=== PATIENT | female | born 1955 | race Caucasian/White ===

== ENCOUNTER → 2016-07-21 | Outpatient (CLI) | payer OTHER ==
[~2016-07-21] MED LIST: AMPI250C9 PO; FOSA70TA PO; HYDR-3533 PO; MACR100C2 PO; METO50TA PO; MEVA40TA PO; MULTTAB26; SYNT88TA PO
[2016-07-21 16:00] LABS: BACTERIA, URINE RARE /hpf; BLOOD, URINE NEG (NEG); COMMENT (UR) CULTURE INDICATED; CULTURE IF INDICATED CULTURE INDICATED; GLUCOSE,URINE NEG (NEG); KETONE, URINE NEG (NEG); MUCUS URINE FEW /lpf (OCC); NITRITE,URINE NEG (NEG); PH, URINE 5.5 (5.0-8.5); URINE COLOR YELLOW (YELLW/STRAW)
== END ==
LOC: PLAB 13:48
PROVIDERS: ATTEND Urology
DX: N39.0 Urinary tract infection, site not specified (principal); B95.2 Enterococcus as the cause of diseases classified elsewhere
CPT/HCPCS: 81001; 87077; 87086; 87186

== ENCOUNTER → 2016-08-18 | Outpatient (CLI) | payer OTHER | LOC: PLAB 08:58 | DX: N39.0 Urinary tract infection, site not specified (principal); B95.2 Enterococcus as the cause of diseases classified elsewhere | CPT/HCPCS: 87077; 87086; 87186 ==

== ENCOUNTER → 2016-09-04 | Outpatient (CLI) | payer OTHER | LOC: PLAB 11:02 | PROVIDERS: ATTEND Urology | DX: N39.0 Urinary tract infection, site not specified (principal); B95.2 Enterococcus as the cause of diseases classified elsewhere; B96.89 Other specified bacterial agents as the cause of diseases classified elsewhere | CPT/HCPCS: 87077; 87086; 87186 ==

== ENCOUNTER 2016-09-18 22:10 | Emergency (ER) | payer OTHER ==
[~2016-09-18] VITALS: Ht 152.4 cm; Wt 50.5 kg
[2016-09-18 22:27] VITALS: BP 143/88; PULSE 99; RESP 18; TEMP 97.5; O2SAT 98
[2016-09-18] MEDS ORDERED: LOVA40TA PO (22:46)
[2016-09-18 22:55] VITALS: BP 131/64; PULSE 90; RESP 16; O2SAT 98
[2016-09-18] MEDS ORDERED: SODIUM CHLOR 0.9% 1000 ML INJ 1,000 ML IV ONE (23:02)
--- NOTE | 2016-09-18 23:10 | PD ---
HPI Chief Complaint: Flank/Kidney Pain Time Seen by Provider: 22:51 Travel History International Travel<30 days: No Contact w/Intl Traveler<30days: No Traveled to known affect area: No History of Present Illness HPI This 60-year-old female said she had a sudden onset of left flank pain that around 7:30 tonight. She has had attacks like this in the past. She had an attack in February. At that time she had a CT scan which was thought to show an 8 mm stone. Plans were made to remove the stone and was found that this was not actually a stone but a calcification. 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 She has had recurrent pain. She has a history of severe diverticulitis. She says she gets periodic attacks like this which are extremely painful. There has been some consideration given to removing the kidney. In February she had a renal scan which showed that the left kidney was a poorly functioning atrophic kidney. She took 2 Lortab at home without any relief of pain. She says she had vomiting. She has recurrent attacks like this. He was originally thought these were due to kidney stone but she had surgery and that was no stone present. She apparently has calcification around the ureter related to previous fistula. It has been suggested that her bouts of pain could also be related to scar tissue. PFSH Past Medical History Anemia: Yes Arthritis: Yes (degenerative arthritis) Asthma: No Depression: No Heart Rhythm Problems: Yes (tachycardia) Cancer: No High Cholesterol: Yes Chest Pain: Yes Congestive Heart Failure: No COPD: Yes Cerebrovascular Accident: No Diabetes: No Diminished Hearing: No Endocrine: Yes Gastrointestinal Disorders: Yes (diverticulitis and a fistula hx of gastric ulcers, 2 X COLON RESECTIONS) GERD: Yes Genitourinary: Yes (hx of uti and kidney stones) Headaches: Yes Hepatitis: No Hiatal Hernia: No Hypertension: Yes Immune Disorder: No Kidney Stones: Yes Medical other: Yes (hx of menegitis with septacemia x2) Musculoskeletal: Yes (arthritis in the neck and lower back, 5 X RECONSTRUCTIVE SURGERIES ON R ARM) Neurologic: Yes (BACTERIA MENINGITIS (1986)) Respiratory: Yes Immunizations Current: Yes Renal Failure: Yes Thyroid Disease: Yes (hx of total thyroidectomy) Ulcer: Yes Influenza Vaccination: Yes ?: Not Menopausal: Yes : 0 Para: 0 Past Surgical History Abdominal Surgery: Yes (colectomy/ILEOSTOMY- REVERSAL ON 02/19/2014) AICD: No Body Medical Devices: lower lumbar right knee Cardiac Surgery: Yes (cathertization 08/25) Ear Surgery: No Endocrine Surgery: Yes (thyroidectomy) Eye Surgery: No Genitourinary Surgery: Yes (several surgeries for left ureter ureteral stents place and removed) Gynecologic Surgery: Yes (ovary removal and hysterectomy) Hysterectomy: Yes Insulin Pump: No Joint Replacement: Yes (RTKR 2002, [facility] [place]/SCREWS) Neurologic Surgery: Yes (meningitis resulted in five surgeries to right arm) Oral Surgery: Yes (tonsillectomy) Thoracic Surgery: No Tonsillectomy: Yes (1996) Other Surgery: Yes Social History Alcohol Use: No Tobacco Use: No Substance Use: No Allergies-Medications (Allergen,Severity, Reaction): Coded Allergies: Cipro (Verified Allergy, Severe, hives, 05/27/16) Compazine (Verified Allergy, Severe, DYSTONIA, 05/27/16) Haldol (Verified Allergy, Severe, THROAT SWELLING, 05/27/16) Vancomycin (Verified Allergy, Severe, HIVES, 05/27/16) PT STATES SHE HAD REDNESS AND ITCHING AFTER ONE DOSE. WAS GIVEN BENADRYL IV Colace (Verified Allergy, Mild, HEADACHE, 05/27/16) Protonix (Verified Adverse Reaction, Severe, Headache, 05/27/16) Tramadol (Verified Adverse Reaction, Severe, GI DISTRESS, 05/27/16) Reported Meds & Prescriptions Reported Meds & Active Scripts Active Bactrim DS (Sulfamethoxazole-Trimethoprim) 800-160 Mg Tab 1 Tab PO BID Zofran Odt (Ondansetron Odt) 4 Mg Tab 4 Mg SL Q6HR PRN Percocet (Oxycodone-Acetaminophen) 10-325 mg Tab 1 Tab PO Q4H PRN Lortab (Hydrocodone-Acetaminophen) 5-325 Mg Tab 1-2 Tab PO Q6H PRN Reported Lovastatin 40 Mg Tab 40 Mg PO DAILY Metoprolol Tartrate 50 Mg Tab 50 Mg PO BID Synthroid (Levothyroxine Sodium) 88 Mcg Tab 88 Mcg PO DAILY Review of Systems General / Constitutional: Positive: Weight Loss (patient claims weight loss of greater than 100 pounds over the last 2 years), No: Fever, Chills Eyes: No: Diploplia, Blurred Vision HENT: No: Headaches, Vertigo Cardiovascular: No: Chest Pain or Discomfort, Palpitations Respiratory: No: Cough, Shortness of Breath Gastrointestinal: Positive: Nausea, Vomiting Genitourinary: Positive: Flank Pain, No: Urgency, Frequency Musculoskeletal: No: Myalgias, Arthralgias Skin: No Rash, No Itching Neurologic: No: Weakness, Dizziness Psychiatric: No: Anxiety, Depression Endocrine: No: Heat Intolerance, Cold Intolerance Hematologic/Lymphatic: No: Easy Bruising Physical Exam Narrative GENERAL: Well-developed female. She appears uncomfortable with pain SKIN: Focused skin assessment warm/dry. HEAD: Atraumatic. Normocephalic. EYES: Pupils equal and round. No scleral icterus. No injection or drainage. ENT: No nasal bleeding or discharge. Mucous membranes pink and moist. NECK: Trachea midline. No JVD. CARDIOVASCULAR: Regular rate and rhythm. No murmur appreciated. RESPIRATORY: No accessory muscle use. Clear to auscultation. Breath sounds equal bilaterally. GASTROINTESTINAL: Abdomen soft, non-tender, nondistended. Hepatic and splenic margins not palpable. There is some left CVA tenderness MUSCULOSKELETAL: No obvious deformities. No clubbing. No cyanosis. No edema. NEUROLOGICAL: Awake and alert. No obvious cranial nerve deficits. Motor grossly within normal limits. Normal speech. PSYCHIATRIC: Appropriate mood and affect; insight and judgment normal. Data Data Last Documented VS Vital Signs Date Time Temp Pulse Resp B/P Pulse Ox O2 Delivery O2 Flow Rate FiO2 09/18/16 22:27 97.5 99 18 143/88 98 Orders Complete Blood Count With Diff (09/18/16 23:02) Basic Metabolic Panel (Bmp) (09/18/16 23:02) Urinalysis - C+S If Indicated (09/18/16 23:02) Sodium Chlor 0.9% 1000 Ml Inj (Ns 1000 M (09/18/16 23:02) Ondansetron Inj (Zofran Inj) (09/18/16 23:15) Hydromorphone Pf Inj (Dilaudid Pf Inj) (09/18/16 23:15) Urine Culture (09/18/16 23:00) Potassium Chloride (Kcl) (09/19/16 00:00) Sulfamet-Trimeth Ds 800-160 Mg (Bactrim (09/19/16 00:00) Labs Laboratory Tests Test 09/18/16 23:00 White Blood Count 7.5 TH/MM3 Red Blood Count 4.06 MIL/MM3 Hemoglobin 11.5 GM/DL Hematocrit 34.3 % Mean Corpuscular Volume 84.6 FL Mean Corpuscular Hemoglobin 28.3 PG Mean Corpuscular Hemoglobin 33.5 % Concent Red Cell Distribution Width 13.1 % Platelet Count 233 TH/MM3 Mean Platelet Volume 8.1 FL Neutrophils (%) (Auto) 66.7 % Lymphocytes (%) (Auto) 20.3 % Monocytes (%) (Auto) 9.2 % Eosinophils (%) (Auto) 3.1 % Basophils (%) (Auto) 0.7 % Neutrophils # (Auto) 5.0 TH/MM3 Lymphocytes # (Auto) 1.5 TH/MM3 Monocytes # (Auto) 0.7 TH/MM3 Eosinophils # (Auto) 0.2 TH/MM3 Basophils # (Auto) 0.1 TH/MM3 CBC Comment DIFF FINAL Differential Comment Urine Color YELLOW Urine Turbidity SLIGHT Urine pH 6.0 Urine Specific [place] 1.020 Urine Protein TRACE mg/dL Urine Glucose (UA) NEG mg/dL Urine Ketones NEG mg/dL Urine Occult Blood TRACE Urine Nitrite NEG Urine Bilirubin NEG Urine Leukocyte Esterase SMALL Urine RBC 3-5 /hpf Urine WBC 25-49 /hpf Urine Squamous Epithelial 0-5 /hpf Cells Urine Bacteria FEW /hpf Urine Yeast with Hyphae MOD Urine Yeast (Budding) MOD Microscopic Urinalysis Comment CULTURE INDICATED Sodium Level 144 MEQ/L Potassium Level 2.8 MEQ/L Chloride Level 111 MEQ/L Carbon Dioxide Level 23.5 MEQ/L Anion Gap 10 MEQ/L Blood Urea Nitrogen 25 MG/DL Creatinine 1.40 MG/DL Estimat Glomerular Filtration 38 ML/MIN Rate Random Glucose 103 MG/DL Calcium Level 9.4 MG/DL [facility] Medical Decision Making Medical Screen Exam Complete: Yes Emergency Medical Condition: Yes Medical Record Reviewed: Yes Differential Diagnosis Differential includes atrophic kidney, UTI, Narrative Course This patient has had recurrent bouts of flank pain which are quite severe. She has had several CTs which suggests that she has a proximal left ureteral stone however surgery showed that this is a calcification related to previous ureteral injury. She does see Dr. Cavazos on a regular basis and consideration is apparently being given to nephrectomy. She has been given pain medication with some improvement. Her urine does show infection. It is noted that she does have yeast noted in the urine but I will treat the urine for bacterial infection and whether she needs treatment for yeast infection will be up to Dr. Cavazos. She'll be released with prescription for Percocet and Bactrim Diagnosis Primary Impression: Left flank pain Additional Impression: Urinary tract infection Qualified Code: N30.00 - Acute cystitis without hematuria Referrals: Angel Cavazos DO [facility] Sulfamethoxazole-Trimethoprim (Bactrim DS)800-160 Mg Tab1 Tab PO BID #20 TAB Ref 0 Prov:Regan Hernandez MD 09/18/16 Ondansetron Odt (Zofran Odt)4 Mg Tab4 Mg SL Q6HR PRN (Nausea/Vomiting) #10 TAB Ref 0 Prov:Regan Hernandez MD 09/18/16 Oxycodone-Acetaminophen (Percocet)10-325 mg Tab1 Tab PO Q4H PRN (PAIN) #30 TAB Ref 0 Prov:Regan Hernandez MD 09/18/16 Disposition: 01 DISCHARGE HOME Condition: Stable Regan Hernandez MD Sep 18, 2016 23:10
[2016-09-18] MEDS ORDERED: ONDANSETRON HCL 4 MG/2 ML VIAL IVP ONE (23:15)
[2016-09-18] MEDS ORDERED: HYDROmorphone HCL PF 1 MG/ML VIAL IVS ONE (23:15)
[2016-09-18 23:21] LABS: BLOOD, URINE TRACE (NEG); GLUCOSE,URINE NEG (NEG); KETONE, URINE NEG (NEG); NITRITE,URINE NEG (NEG)
[2016-09-18 23:24] LABS: BASOPHIL # 0.1 TH/MM3 (0-0.2); BASOPHIL % 0.7 % (0.0-2.0); EOSINOPHIL # 0.2 TH/MM3 (0-0.4); EOSINOPHIL % 3.1 % (0.0-4.0); HEMATOCRIT 34.3 % (35.0-46.0); HEMO FLAGS DIFF FINAL; LYMPH % 20.3 % (9.0-44.0); LYMPHOCYTE # 1.5 TH/MM3 (1.0-4.8); MEAN CELL VOLUME 84.6 FL (80.0-100.0); MEAN CORPUSCULAR HEMOGLOBIN 28.3 PG (27.0-34.0); MEAN CORPUSCULAR HGB CONC 33.5 % (32.0-36.0); MONO % 9.2 % (0.0-8.0); NEUT % 66.7 % (16.0-70.0); PLATELET COUNT 233 TH/MM3 (150-450); RED BLOOD COUNT 4.06 MIL/MM3 (4.00-5.30); RED CELL DISTRIBUTION WIDTH 13.1 % (11.6-17.2); WHITE BLOOD COUNT 7.5 TH/MM3 (4.0-11.0)
[2016-09-18 23:32] LABS: BACTERIA, URINE FEW /hpf; COMMENT (UR) CULTURE INDICATED; CULTURE IF INDICATED CULTURE INDICATED; SQUAMOUS EPITHELIAL CELL URINE 0-5 /hpf (0-5); URINE COLOR YELLOW (YELLW/STRAW)
[2016-09-18] MEDS ORDERED: ZOFR4TAB3 SL (23:41)
[2016-09-18] MEDS ORDERED: PERC10TA27 PO (23:41)
[2016-09-18 23:44] LABS: BICARBONATE 23.5 MEQ/L (21.0-32.0)
[2016-09-18 23:46] LABS: POTASSIUM 2.8 MEQ/L (3.5-5.1)
[2016-09-18] MEDS ORDERED: BACT800T5 PO (23:50)
[2016-09-18 23:55] VITALS: BP 111/56; PULSE 74; RESP 16; O2SAT 97
[2016-09-19] MEDS ORDERED: POTASSIUM CHLORIDE 10 MEQ CONTROLLED RELEASE TAB PO ONE
[2016-09-19] MEDS ORDERED: SULFAMETHOXAZOLE-TRIMETHOPRIM DS 800-160 MG TAB PO ONE
[2016-09-19 00:55] VITALS: BP 118/62; PULSE 68; RESP 16; O2SAT 97
== END 2016-09-19 01:35 | disposition home or self-care (01) ==
LOC: PHED 22:10
DX: N30.00 Acute cystitis without hematuria (principal); E07.9 Disorder of thyroid, unspecified; E78.00 Pure hypercholesterolemia, unspecified; J44.9 Chronic obstructive pulmonary disease, unspecified; Z87.19 Personal history of other diseases of the digestive system; Z87.442 Personal history of urinary calculi; I12.9 Hypertensive chronic kidney disease with stage 1 through stage 4 chronic kidney disease, or unspecified chronic kidney disease; N18.9 Chronic kidney disease, unspecified
CPT/HCPCS: 80048; 81001; 85025; 87086; 96361; 96374; 96375; 99284; J1170; J2405; J7030

== ENCOUNTER 2016-10-19 01:32 | Inpatient (IN) | payer OTHER ==
[~2016-10-19] VITALS: Ht 152.4 cm; Wt 55.7 kg
[2016-10-19] VITALS (12 sets, daily range): BP systolic 102–115; BP diastolic 49–67; PULSE 74–131; RESP 16–20; TEMP 98.4–101.1; O2SAT 94–100
[~2016-10-19 01:32] MED LIST changes: -AMPI250C9 PO; +BACT800T5 PO; -FOSA70TA PO; +LOVA40TA PO; -MACR100C2 PO; -MEVA40TA PO; -MULTTAB26; +PERC10TA27 PO; +ZOFR4TAB3 SL
[2016-10-19] MEDS ORDERED: PIPERACIL-TAZO 4.5 GM PREMIX 100 ML IV STA (01:43)
[2016-10-19] MEDS ORDERED: ACETAMINOPHEN 325 MG TAB PO ONE (01:45)
[2016-10-19] MEDS ORDERED: SODIUM CHLOR 0.9% 1000 ML INJ 1,000 ML IV ONE ×2 (01:45→03:00)
--- NOTE | 2016-10-19 02:09 | RADRPT ---
EXAM DATE/TIME: 10/19/2016 01:54 [facility] COMPARISON: CHEST SINGLE AP, October 03, 2013, 23:15. INDICATIONS : Chest pain. MEDICAL HISTORY : Hypertension. Chronic obstructive pulmonary disease. SURGICAL HISTORY : Cardiac catheterization. ENCOUNTER: Initial ACUITY: 1 day PAIN SCORE: 3/10 LOCATION: Bilateral chest FINDINGS: A single view of the chest demonstrates the lungs to be symmetrically aerated without evidence of mas s, infiltrate or effusion. The cardiomediastinal contours are unremarkable. Osseous structures are intact. CONCLUSION: No acute disease. Nick Smith MD on October 19, 2016 at 2:07 Board Certified Radiologist. This report was verified electronically.
[2016-10-19 02:10] LABS: AUTOMATED NEUTROPHIL # 15.1 TH/MM3 (1.8-7.7); BASOPHIL # 0.2 TH/MM3 (0-0.2); BASOPHIL % 1.1 % (0.0-2.0); EOSINOPHIL # 0.2 TH/MM3 (0-0.4); LYMPH % 7.4 % (9.0-44.0); LYMPHOCYTE # 1.4 TH/MM3 (1.0-4.8); MEAN CELL VOLUME 85.6 FL (80.0-100.0); MEAN CORPUSCULAR HEMOGLOBIN 28.8 PG (27.0-34.0); MEAN CORPUSCULAR HGB CONC 33.6 % (32.0-36.0); MONO % 7.5 % (0.0-8.0); PLATELET COUNT 228 TH/MM3 (150-450); RED BLOOD COUNT 3.98 MIL/MM3 (4.00-5.30); RED CELL DISTRIBUTION WIDTH 14.6 % (11.6-17.2); WHITE BLOOD COUNT 18.3 TH/MM3 (4.0-11.0)
[2016-10-19 02:27] LABS: HEMO FLAGS AUTO DIFF
[2016-10-19 02:47] LABS: BLOOD, URINE LARGE (NEG); GLUCOSE,URINE NEG (NEG); KETONE, URINE NEG (NEG); NITRITE,URINE NEG (NEG)
[2016-10-19 02:52] LABS: PLATELET ESTIMATE SMEAR NORMAL (NORMAL); PLATELET MORPHOLOGY NORMAL (NORMAL); SCAN/DIFF AUTO DIFF CONFIRMED
[2016-10-19 02:54] LABS: URINE COLOR YELLOW (YELLW/STRAW)
[2016-10-19 02:55] LABS: SQUAMOUS EPITHELIAL CELL URINE 0-5 /hpf (0-5)
[2016-10-19 02:56] LABS: MUCUS URINE RARE /lpf (OCC)
[2016-10-19 02:59] LABS: COMMENT (UR) CULTURE INDICATED; CULTURE IF INDICATED CULTURE INDICATED
[2016-10-19 03:05] LABS: ALKALINE PHOSPHATASE 97 U/L (45-117); ALT (GPT) 14 U/L (10-53); ANION GAP 9 MEQ/L (5-15); AST (GOT) 18 U/L (15-37); BICARBONATE 24.9 MEQ/L (21.0-32.0); BLOOD UREA NITROGEN 27 MG/DL (7-18); CHLORIDE 103 MEQ/L (98-107); GLOMERULAR FILTRATION RATE 35 ML/MIN (>89); MAGNESIUM 1.5 MG/DL (1.5-2.5); SODIUM (NA) 137 MEQ/L (136-145); TOTAL BILIRUBIN ADULT 0.8 MG/DL (0.2-1.0)
[2016-10-19 03:06] LABS: POTASSIUM 2.5 MEQ/L (3.5-5.1)
[2016-10-19] MEDS ORDERED: POTASSIUM CHLORIDE 20 MEQ CONTROLLED RELEASE TAB PO ONE (03:15)
[2016-10-19] MEDS: POTASSIUM CHLOR 10 MEQ PREMIX 100 ML IV SCH ×3 (03:49→08:31)
--- NOTE | 2016-10-19 04:06 | RADRPT ---
EXAM DATE/TIME: 10/19/2016 03:22 [facility] COMPARISON: CT ABDOMEN & PELVIS W/O CONTRAST, March 01, 2016, 5:16. INDICATIONS : Left flank pain with history of kidney stones. ORAL CONTRAST: No oral contrast ingested. RADIATION DOSE: 4.87 CTDIvol (mGy) MEDICAL HISTORY : Renal calculi. Hypertension. Chronic kidney disease SURGICAL HISTORY : Hysterectomy. Colon surgery ENCOUNTER: Initial ACUITY: 2 days PAIN SCALE: 6/10 LOCATION: Left flank TECHNIQUE: Volumetric scanning of the abdomen and pelvis was performed. Using automated exposure control and ad justment of the mA and/or kV according to patient size, radiation dose was kept as low as reasonably achievable to obtain optimal diagnostic quality images. DICOM format image data is available electro nically for review and comparison. FINDINGS: Lung bases are clear. Degenerative changes of the spine and postsurgical changes are noted with poste rior carline and transpedicular screw fixation at L4-S1 and post laminectomy changes. No pleural or peric ardial effusions. Liver, spleen, pancreas, adrenal glands and right kidney are unremarkable. Gallblad rick is unremarkable. There is left renal scarring and severe left-sided hydronephrosis with a left UP J 8.6 mm calculus noted. There is perinephric stranding. Urinary bladder unremarkable. Anastomotic st aple line at the sigmoid colon. Small bowel staple line right lower quadrant. CONCLUSION: Severe left-sided hydronephrosis secondary to a be a stone at the IJ. There is left renal scarring. Nick Smith MD on October 19, 2016 at 4:02 Board Certified Radiologist. This report was verified electronically.
[2016-10-19] MEDS ORDERED: LACTULOSE SYRUP 20 GM/30 ML CUP PO PRN (05:00)
[2016-10-19] MEDS ORDERED: BISACODYL 10 MG SUPP RECTAL PRN (05:00)
[2016-10-19] MEDS ORDERED: MAGNESIUM HYDROXIDE SUSP 30 ML CUP PO PRN (05:00)
[2016-10-19] MEDS ORDERED: SENNOSIDES 8.6 MG TAB PO PRN (05:00)
[2016-10-19] MEDS ORDERED: ACETAMINOPHEN 325 MG TAB PO PRN (05:00)
[2016-10-19] MEDS ORDERED: ONDANSETRON HCL 4 MG/2 ML VIAL IVP PRN (05:00)
--- NOTE | 2016-10-19 05:00 | PD ---
HPI Chief Complaint: Flank/Kidney Pain Time Seen by Provider: 01:43 Travel History International Travel<30 days: No Contact w/Intl Traveler<30days: No Traveled to known affect area: No History of Present Illness HPI 60-year-old female presents to the emergency department for complaint of severe left flank pain left upper quadrant pain with nausea and fever. Patient states she has issues with recurrent urinary tract infections due to chronic residual nephrolithiasis and renal calcifications. Patient has history of complicated surgical interventions with partial colon resection for diverticulitis and subsequent left ureteral injury, colovesicular fistula, recurrent UTI and pyelonephritis, chronic recurrent left flank pain and left upper quadrant pain with history of residual nephrolithiasis and renal calcifications. Patient is under the care of Dr. Cavazos who has discussed with her possible left nephrectomy due to recurrent problem. Patient has had admission in November 2015 for cystoscopy and double J stent insertion as well as admitted in February 2016 at which time patient responded to pain management IV antibiotics and conservative therapy and stent did not require placement at that time. Patient has done fairly well but was seen as recently as September 18 with some worsening renal function but started on Bactrim antibiotic and referred back to her urologist. Patient again states that she has seen her and her urologist to recommends probable left nephrectomy. Patient describes flank pain as 6/10 in intensity. No chest pain or shortness of breath this time no generalized abdominal pain although does have referred pain to the left upper quadrant from the left flank. PFSH Past Medical History Narrative Medical Anemia arthritis tachycardia dyslipidemia hypertension renal insufficiency headaches COPD diverticulitis partial colectomy fistula gastric ulcers kidney stones obstructive uropathy pyelonephritis picture meningitis thyroidectomy ureteral stents cardiac catheterization hysterectomy; no tobacco use no alcohol use no substance use Anemia: Yes Arthritis: Yes (degenerative arthritis) Asthma: No Depression: No Heart Rhythm Problems: Yes (tachycardia) Cancer: No High Cholesterol: Yes Chest Pain: Yes Congestive Heart Failure: No COPD: Yes Cerebrovascular Accident: No Diabetes: No Diminished Hearing: No Endocrine: Yes Gastrointestinal Disorders: Yes (diverticulitis and a fistula hx of gastric ulcers, 2 X COLON RESECTIONS) GERD: Yes Genitourinary: Yes (hx of uti and kidney stones) Headaches: Yes Hepatitis: No Hiatal Hernia: No Hypertension: Yes Immune Disorder: No Kidney Stones: Yes Medical other: Yes (hx of menegitis with septacemia x2) Musculoskeletal: Yes (arthritis in the neck and lower back, 5 X RECONSTRUCTIVE SURGERIES ON R ARM) Neurologic: Yes (BACTERIA MENINGITIS (1986)) Respiratory: Yes Immunizations Current: Yes Renal Failure: Yes Thyroid Disease: Yes (hx of total thyroidectomy) Ulcer: Yes Tetanus Vaccination: Unknown Influenza Vaccination: Yes Menopausal: Yes : 0 Para: 0 Past Surgical History Abdominal Surgery: Yes (colectomy/ILEOSTOMY- REVERSAL ON 02/19/2014) AICD: No Body Medical Devices: lower lumbar right knee Cardiac Surgery: Yes (cathertization 08/25) Ear Surgery: No Endocrine Surgery: Yes (thyroidectomy) Eye Surgery: No Genitourinary Surgery: Yes (several surgeries for left ureter ureteral stents place and removed) Gynecologic Surgery: Yes (ovary removal and hysterectomy) Hysterectomy: Yes Insulin Pump: No Joint Replacement: Yes (RTKR 2002, [facility] [place]/SCREWS) Neurologic Surgery: Yes (meningitis resulted in five surgeries to right arm) Oral Surgery: Yes (tonsillectomy) Thoracic Surgery: No Tonsillectomy: Yes (1996) Other Surgery: Yes Social History Alcohol Use: No Tobacco Use: No Substance Use: No Allergies-Medications (Allergen,Severity, Reaction): Coded Allergies: Cipro (Verified Allergy, Severe, hives, 05/27/16) Compazine (Verified Allergy, Severe, DYSTONIA, 05/27/16) Haldol (Verified Allergy, Severe, THROAT SWELLING, 05/27/16) Vancomycin (Verified Allergy, Severe, HIVES, 05/27/16) PT STATES SHE HAD REDNESS AND ITCHING AFTER ONE DOSE. WAS GIVEN BENADRYL IV Colace (Verified Allergy, Mild, HEADACHE, 05/27/16) Protonix (Verified Adverse Reaction, Severe, Headache, 05/27/16) Tramadol (Verified Adverse Reaction, Severe, GI DISTRESS, 05/27/16) Reported Meds & Prescriptions Reported Meds & Active Scripts Active Bactrim DS (Sulfamethoxazole-Trimethoprim) 800-160 Mg Tab 1 Tab PO BID Zofran Odt (Ondansetron Odt) 4 Mg Tab 4 Mg SL Q6HR PRN Percocet (Oxycodone-Acetaminophen) 10-325 mg Tab 1 Tab PO Q4H PRN Lortab (Hydrocodone-Acetaminophen) 5-325 Mg Tab 1-2 Tab PO Q6H PRN Reported Lovastatin 40 Mg Tab 40 Mg PO DAILY Metoprolol Tartrate 50 Mg Tab 50 Mg PO BID Synthroid (Levothyroxine Sodium) 88 Mcg Tab 88 Mcg PO DAILY Review of Systems Except as stated in HPI: all other systems reviewed are Neg General / Constitutional: Positive: Fever, Chills HENT: No: Congestion Cardiovascular: Positive: Chest Pain or Discomfort, No: Diaphoresis Respiratory: Positive: Shortness of Breath, No: Cough, Wheezing Gastrointestinal: Positive: Nausea, Vomiting, Abdominal Pain (LUQ) Genitourinary: Positive: Dysuria, Flank Pain (left sided) Musculoskeletal: Positive: Myalgias, Arthralgias, No: Pain Skin: No Rash Neurologic: Positive: Weakness, No: Dizziness, Syncope, Focal Abnormalities, Coordination Problem Psychiatric: No: Anxiety Hematologic/Lymphatic: No: Lymph Node Enlargement Physical Exam Narrative GENERAL: Ill-appearing thin female in no acute respiratory distress; GCS 15 T: 99.6, HR: 108,RR: 20 BP: 109/65 SKIN: Warm and dry. HEAD: Normocephalic. EYES: No scleral icterus. No injection or drainage. NECK: Supple, trachea midline. No JVD or lymphadenopathy. CARDIOVASCULAR: Regular rate and rhythm without murmurs, gallops, or rubs. RESPIRATORY: Breath sounds equal bilaterally. No accessory muscle use. GASTROINTESTINAL: Abdomen soft, reproducible left upper quadrant tenderness without guarding or rebound, nondistended. MUSCULOSKELETAL: No cyanosis, or edema. BACK: Nontender without obvious deformity. Reproducible left CVA tenderness. Data Data Last Documented VS Vital Signs Date Time Temp Pulse Resp B/P Pulse Ox O2 Delivery O2 Flow Rate FiO2 10/19/16 03:52 18 10/19/16 02:41 96 10/19/16 02:41 102/59 94 Room Air 10/19/16 01:40 99.2 Orders Electrocardiogram (10/19/16 01:43) Complete Blood Count With Diff (10/19/16 01:43) Comprehensive Metabolic Panel (10/19/16 01:43) Lactic Acid Sepsis Protocol (10/19/16 01:43) Magnesium (Mg) (10/19/16 01:43) Lipase (10/19/16 01:43) Urinalysis - C+S If Indicated (10/19/16 01:43) Blood Culture (10/19/16 01:43) Chest, Single Ap (10/19/16 01:43) Blood Glucose (10/19/16 01:43) Ecg Monitoring (10/19/16 01:43) Iv Access Insert/Monitor (10/19/16 01:43) Oximetry (10/19/16 01:43) Oxygen Administration (10/19/16 01:43) Piperacil-Tazo 4.5 Gm Premix (Zosyn 4.5 (10/19/16 01:43) Sodium Chlor 0.9% 1000 Ml Inj (Ns 1000 M (10/19/16 01:45) Acetaminophen (Tylenol) (10/19/16 01:45) Troponin I (10/19/16 01:50) Sodium Chlor 0.9% 1000 Ml Inj (Ns 1000 M (10/19/16 03:00) Urine Culture (10/19/16 02:33) Ct Abd/Pel W/O Iv Contrast (10/19/16 ) Potassium Chloride (Kcl) (10/19/16 03:15) Potassium Chlor 10 Meq Premix (Kcl 10 Me (10/19/16 03:15) Ceftriaxone Inj (Rocephin Inj) (10/19/16 09:00) Admit To Inpatient (10/19/16 ) Vital Signs (Adult) Q4H (10/19/16 04:51) Activity Oob Ad [place] (10/19/16 04:51) Intake + Output CHI.QSHIFT (10/19/16 04:51) Diet Regular Basic (10/19/16 Breakfast) Sodium Chlor 0.9% 1000 Ml Inj (Ns 1000 M (10/19/16 04:51) Sodium Chloride 0.9% Flush (Ns Flush) (10/19/16 05:00) Sodium Chloride 0.9% Flush (Ns Flush) (10/19/16 09:00) Ondansetron Inj (Zofran Inj) (10/19/16 05:00) Comprehensive Metabolic Panel (10/20/16 06:00) Complete Blood Count With Diff (10/20/16 06:00) Scd Bilateral/Knee High CHI.BID (10/19/16 04:51) Kael Bilateral/Knee High CHI.QSHIFT (10/19/16 04:51) Acetaminophen (Tylenol) (10/19/16 05:00) Acetamin-Hydrocod 325-5 Mg ([place] 5-325 (10/19/16 05:00) Morphine Inj (Morphine Inj) (10/19/16 05:00) Magnesium Hydroxide Liq (Milk Of Magnesi (10/19/16 05:00) Sennosides (Senokot) (10/19/16 05:00) Bisacodyl Supp (Dulcolax Supp) (10/19/16 05:00) Lactulose Liq (Lactulose Liq) (10/19/16 05:00) Inpatient Certification (10/19/16 ) Troponin I (10/19/16 08:00) Troponin I (10/19/16 14:00) Labs Laboratory Tests Test 10/19/16 10/19/16 10/19/16 01:50 02:25 02:33 White Blood Count 18.3 TH/MM3 Red Blood Count 3.98 MIL/MM3 Hemoglobin 11.4 GM/DL Hematocrit 34.0 % Mean Corpuscular Volume 85.6 FL Mean Corpuscular Hemoglobin 28.8 PG Mean Corpuscular Hemoglobin 33.6 % Concent Red Cell Distribution Width 14.6 % Platelet Count 228 TH/MM3 Mean Platelet Volume 8.4 FL Neutrophils (%) (Auto) 83.0 % Lymphocytes (%) (Auto) 7.4 % Monocytes (%) (Auto) 7.5 % Eosinophils (%) (Auto) 1.0 % Basophils (%) (Auto) 1.1 % Neutrophils # (Auto) 15.1 TH/MM3 Lymphocytes # (Auto) 1.4 TH/MM3 Monocytes # (Auto) 1.4 TH/MM3 Eosinophils # (Auto) 0.2 TH/MM3 Basophils # (Auto) 0.2 TH/MM3 CBC Comment AUTO DIFF Differential Comment AUTO DIFF CONFIRMED Platelet Estimate NORMAL Platelet Morphology Comment NORMAL Red Cell Morphology Comment NORMAL Lactic Acid Level 1.0 mmol/L Sodium Level 137 MEQ/L Potassium Level 2.5 MEQ/L Chloride Level 103 MEQ/L Carbon Dioxide Level 24.9 MEQ/L Anion Gap 9 MEQ/L Blood Urea Nitrogen 27 MG/DL Creatinine 1.50 MG/DL Estimat Glomerular Filtration 35 ML/MIN Rate Random Glucose 105 MG/DL Calcium Level 9.0 MG/DL Magnesium Level 1.5 MG/DL Total Bilirubin 0.8 MG/DL Aspartate Amino Transf 18 U/L (AST/SGOT) Alanine Aminotransferase 14 U/L (ALT/SGPT) Alkaline Phosphatase 97 U/L Troponin I LESS THAN 0.02 NG/ML Total Protein 7.5 GM/DL Albumin 3.2 GM/DL Lipase 110 U/L Urine Color YELLOW Urine Turbidity SLIGHT Urine pH 6.0 Urine Specific [place] 1.019 Urine Protein 100 mg/dL Urine Glucose (UA) NEG mg/dL Urine Ketones NEG mg/dL Urine Occult Blood LARGE Urine Nitrite NEG Urine Bilirubin NEG Urine Leukocyte Esterase MOD Urine RBC 10-14 /hpf Urine WBC 50-99 /hpf Urine Squamous Epithelial 0-5 /hpf Cells Urine Amorphous Sediment SMALL Urine Mucus RARE /lpf Urine Yeast with Hyphae RARE Microscopic Urinalysis Comment CULTURE INDICATED MDM Medical Decision Making Medical Screen Exam Complete: Yes Emergency Medical Condition: Yes Medical Record Reviewed: Yes Interpretation(s) lactic acid: 1.0 EKG normal sinus rhythm rate 92 incomplete right bundle branch block ischemic changes noted anterolaterally no acute ST elevation or injury pattern Troponin I less than 0.02 Urinalysis positive white blood cells red blood cells leukocyte Estrace culture indicated Last Impressions Chest X-Ray 10/19/16 0143 Signed Impressions: Service Date/Time: Wednesday, October 19, 2016 01:54 - CONCLUSION: No acute disease. Nick Smith MD Abdomen/Pelvis CT 10/19/16 0000 Signed Impressions: Service Date/Time: Wednesday, October 19, 2016 03:22 - CONCLUSION: Severe left-sided hydronephrosis secondary to a be a stone at the IJ. There is left renal scarring. Nick Smith MD CBC & BMP Diagram 10/19/16 01:50 10/19/16 02:25 Vital Signs Date Time Temp Pulse Resp B/P Pulse Ox O2 Delivery O2 Flow Rate FiO2 10/19/16 03:52 18 10/19/16 02:41 96 18 10/19/16 02:41 96 18 102/59 94 Room Air 10/19/16 01:50 95 Room Air 10/19/16 01:50 95 Room Air 10/19/16 01:40 99.2 108 20 109/65 95 Differential Diagnosis Flank pain, obstructive uropathy hydronephrosis pyelonephritis sepsis atypical chest pain ACS gastritis pancreatitis pneumonia Narrative Course Patient placed on night monitor IV access obtained specimens collected and sent for resulting a culture lactic acid collected and patient given Zosyn 4.5 g IV times one dose as well as acetaminophen and normal saline bolus 2 L Patient identified to have hypokalemia patient administered oral potassium replacement and IV potassium replacement Patient identified to have hydronephrosis by CT imaging no other acute abnormality identified and chest x-ray reveals no infiltrate; EKG shows ischemic changes anterolaterally first cardiac enzyme was 0.02, not elevated Patient's case discussed with on-call urology with recommendation to admit patient to [facility] for possible stent placement by her urologist Patient's case discussed with [facility] service MD for admission Sepsis Criteria SIRS Criteria (2 or more): Heart rate over 90, WBC > 75756, < 4000 or > 10% bands Sepsis Criteria (SIRS+source): Infect source susp/known (urine) Physician Communication Physician Communication discussed w Urology Dr Shaw--[facility]; discussed with medicine service admit Diagnosis Primary Impression: Hydronephrosis, left Additional Impressions: Sepsis secondary to UTI Hypokalemia H/O ischemic heart disease Admitting Information Admitting Physician Requests: Admit Riri Nance MD Oct 19, 2016 05:00
[2016-10-19] MEDS ORDERED: MORPHINE SULFATE 8 MG/ML INJ IV PUSH ONE (05:15)
[2016-10-19] MEDS ORDERED: ONDANSETRON HCL 4 MG/2 ML VIAL IV PUSH ONE (05:15)
[2016-10-19] MEDS ORDERED: SODIUM CHLORIDE 0.9% FLUSH 10 ML FLUSH IVF PRN (05:15)
[2016-10-19] MEDS ORDERED: MORPHINE SULFATE 4 MG/ML INJ IV ONE (08:00)
[2016-10-19] MEDS: SODIUM CHLOR 0.9% 1000 ML INJ 1,000 ML IV SCH ×2 (08:34→17:33)
[2016-10-19] MEDS ORDERED: SODIUM CHLORIDE 0.9% FLUSH 10 ML FLUSH IV FLUSH SCH (09:00)
[2016-10-19] MEDS: SODIUM CHLORIDE 0.9% FLUSH 10 ML FLUSH IV FLUSH SCH ×2 (09:00→21:18)
[2016-10-19] MEDS: cefTRIAXone INJ 1,000 MG in SODIUM CHLORIDE 0.9% INJ 100 ML IV SCH (10:11)
--- NOTE | 2016-10-19 10:19 | HHI.HP ---
[facility] No Primary Care Physician Admission Diagnosis sepsis, UTI, hydronephrosis, hypokalemia, h/o cad Diagnoses: Chief Complaint: Fever and left flank pain Travel History International Travel<30 Days: No Contact w/Intl Traveler <30 Da: No Traveled to Known Affected Are: No Sepsis Criteria SIRS Criteria (2 or more): Temp > 100.9 or < 96.8, Heart rate over 90, WBC > 65046, < 4000 or > 10% bands Sepsis Criteria (SIRS+source): Infect source susp/known Severe Sepsis (+one): Hypotension Criteria Outcome: Meets severe sepsis criteria History of Present Illness This patient is a very pleasant 60-year-old female with recurrent nephrolithiasis previously requiring stent placement and stent removal. Patient has had kidney stones for several years. Over the last 3 days patient has had increasing left-sided flank pain and fever of 102.7 at home. She is experiencing dysuria and frequency and urinary incontinence. She was quite familiar with the symptoms and to come to the hospital for further evaluation. She does have evidence of sepsis with leukocytosis, hypotension, tachycardia and fever. Patient has been given IV antibiotics and IV fluids. Her pain was 10 out of 10 and relieved with IV morphine. She is admitted to the hospital for further evaluation of nephrolithiasis and hydronephrosis. Hydronephrosis on my review is significant on the left side with significant perinephric stranding and edema in the left kidney with an apparent stone. Review of Systems Constitutional: COMPLAINS OF: Fatigue, Fever, Weight loss, Chills, Change in appetite, DENIES: Diaphoretic episodes, Weight gain, Dizziness, Night Sweats Endocrine: DENIES: Abnorml menstrual pattern, Heat/cold intolerance, Polydipsia , Polyuria, Polyphagia Eyes: DENIES: Blurred vision, Diplopia, Eye inflammation, Eye pain, Vision loss , Photosensitivity, Double Vision Respiratory: DENIES: Apneas, Cough, Snoring, Wheezing, Hemoptysis, Sputum production, Shortness of breath Cardiovascular: DENIES: Chest pain, Palpitations, Syncope, Dyspnea on Exertion , PND, Lower Extremity Edema, Orthopnea, Claudication Gastrointestinal: COMPLAINS OF: Abdominal pain, DENIES: Black stools, Bloody stools, Constipation, Diarrhea, Nausea, Vomiting, Difficulty Swallowing, Anorexia Genitourinary: COMPLAINS OF: Urinary frequency, Urinary incontinence, Dysuria, DENIES: Abnormal vaginal bleeding, Dysmenorrhea, Dyspareunia, Sexual dysfunction, Urgency, Hematuria, Nocturia, Vaginal discharge Musculoskeletal: COMPLAINS OF: Joint pain, Back pain Hematologic/lymphatic: DENIES: Bruising, Lymphadenopathy Immunologic/allergic: DENIES: Eczema, Urticaria Neurologic: DENIES: Abnormal gait, Headache, Localized weakness, Paresthesias, Seizures, Speech Problems, Tremor, Poor Balance Psychiatric: DENIES: Anxiety, Confusion, Mood changes, Depression, Hallucinations, Agitation, Suicidal Ideation, Homicidal Ideation, Delusions Except as stated in HPI: all other systems reviewed are Neg Past Family Social History Past Medical History Nephrolithiasis Diverticulosis/diverticulitis he yelled to transfuse him History of meningitis with sepsis Back pain Renal dysfunction. Past Surgical History Hemicolectomy with ileostomy and colostomy status post reversal Right knee replacement Thyroidectomy Cardiac catheterization Multiple ureteral stents on the left and subsequent removal of stents Hysterectomy, oophorectomy, spinal carline placement Tonsillectomy Reported Medications Reviewed in the medical record, patient does not take Percocet and complete Bactrim sometime ago Allergies: Coded Allergies: Cipro (Verified Allergy, Severe, hives, 10/19/16) Compazine (Verified Allergy, Severe, DYSTONIA, 10/19/16) Haldol (Verified Allergy, Severe, THROAT SWELLING, 10/19/16) Vancomycin (Verified Allergy, Severe, HIVES, 10/19/16) PT STATES SHE HAD REDNESS AND ITCHING AFTER ONE DOSE. WAS GIVEN BENADRYL IV Colace (Verified Allergy, Mild, HEADACHE, 10/19/16) Protonix (Verified Adverse Reaction, Severe, Headache, 10/19/16) Tramadol (Verified Adverse Reaction, Severe, GI DISTRESS, 10/19/16) Active Ordered Medications Reviewed in the medical record Family History No family history of kidney stones, father from but had a diabetes Mother is living and has dementia and CHF with coronary artery disease Social History Lives with her mother, no tobacco or alcohol dependency Physical Exam Vital Signs Vital Signs Date Time Temp Pulse Resp B/P Pulse Ox O2 Delivery O2 Flow Rate FiO2 8/7/17 06:24 98.4 74 18 104/55 98 Room Air 10/19/16 05:54 96 21 10/19/16 05:17 85 18 107/49 96 Room Air 10/19/16 03:52 18 10/19/16 02:41 96 18 10/19/16 02:41 96 18 102/59 94 Room Air 10/19/16 01:50 95 Room Air 10/19/16 01:50 95 Room Air 10/19/16 01:40 99.2 108 20 109/65 95 Physical Exam GENERAL: This is a well-nourished, well-developed patient, complaining of left flank pain and nausea SKIN: No rashes, ecchymoses or lesions. Cool and dry. HEAD: Atraumatic. Normocephalic. No temporal or scalp tenderness. EYES: Pupils equal round and reactive. Extraocular motions intact. No scleral icterus. No injection or drainage. ENT: Nose without bleeding, purulent drainage or septal hematoma. Throat without erythema, tonsillar hypertrophy or exudate. Uvula midline. Airway patent. NECK: Trachea midline. No JVD or lymphadenopathy. Supple, nontender, no meningeal signs. CARDIOVASCULAR: Sinus tachycardia without murmurs, gallops, or rubs. RESPIRATORY: Clear to auscultation. Breath sounds equal bilaterally. No wheezes , rales, or rhonchi. GASTROINTESTINAL: Left flank tenderness, Abdomen soft, non-tender, nondistended. No hepato-splenomegaly, or palpable masses. No guarding. MUSCULOSKELETAL: Extremities without clubbing, cyanosis, or edema. No joint tenderness, effusion, or edema noted. No calf tenderness. Negative Homans sign bilaterally. NEUROLOGICAL: Awake and alert. Cranial nerves II through XII intact. Motor and sensory grossly within normal limits. Five out of 5 muscle strength in all muscle groups. Normal speech. Laboratory Laboratory Tests Test 10/19/16 10/19/16 10/19/16 10/19/16 01:50 02:25 02:33 08:10 White Blood Count 18.3 Red Blood Count 3.98 Hemoglobin 11.4 Hematocrit 34.0 Mean Corpuscular Volume 85.6 Mean Corpuscular Hemoglobin 28.8 Mean Corpuscular Hemoglobin 33.6 Concent Red Cell Distribution Width 14.6 Platelet Count 228 Mean Platelet Volume 8.4 Neutrophils (%) (Auto) 83.0 Lymphocytes (%) (Auto) 7.4 Monocytes (%) (Auto) 7.5 Eosinophils (%) (Auto) 1.0 Basophils (%) (Auto) 1.1 Neutrophils # (Auto) 15.1 Lymphocytes # (Auto) 1.4 Monocytes # (Auto) 1.4 Eosinophils # (Auto) 0.2 Basophils # (Auto) 0.2 CBC Comment AUTO DIFF Differential Comment AUTO DIFF CONFIRMED Platelet Estimate NORMAL Platelet Morphology Comment NORMAL Red Cell Morphology Comment NORMAL Lactic Acid Level 1.0 Sodium Level 137 Potassium Level 2.5 Chloride Level 103 Carbon Dioxide Level 24.9 Anion Gap 9 Blood Urea Nitrogen 27 Creatinine 1.50 Estimat Glomerular Filtration 35 Rate Random Glucose 105 Calcium Level 9.0 Magnesium Level 1.5 Total Bilirubin 0.8 Aspartate Amino Transf 18 (AST/SGOT) Alanine Aminotransferase 14 (ALT/SGPT) Alkaline Phosphatase 97 Troponin I LESS THAN 0.02 LESS THAN 0.02 Total Protein 7.5 Albumin 3.2 Lipase 110 Urine Color YELLOW Urine Turbidity SLIGHT Urine pH 6.0 Urine Specific [place] 1.019 Urine Protein 100 Urine Glucose (UA) NEG Urine Ketones NEG Urine Occult Blood LARGE Urine Nitrite NEG Urine Bilirubin NEG Urine Leukocyte Esterase MOD Urine RBC 10-14 Urine WBC 50-99 Urine Squamous Epithelial 0-5 Cells Urine Amorphous Sediment SMALL Urine Mucus RARE Urine Yeast with Hyphae RARE Microscopic Urinalysis Comment CULTURE INDICATED Date/Time Procedure Status Source Growth 10/19/16 02:33 Urine Culture Received Urine Clean Catch Pending 10/19/16 01:55 Aerobic Blood Culture Received Blood Peripheral Pending 10/19/16 01:55 Anaerobic Blood Culture Received Blood Peripheral Pending Result Diagram: 10/19/16 0150 10/19/16 0225 Imaging Last Impressions Chest X-Ray 10/19/16 0143 Signed Impressions: Service Date/Time: Wednesday, October 19, 2016 01:54 - CONCLUSION: No acute disease. Nick Smith MD Abdomen/Pelvis CT 10/19/16 0000 Signed Impressions: Service Date/Time: Wednesday, October 19, 2016 03:22 - CONCLUSION: Severe left-sided hydronephrosis secondary to a be a stone at the IJ. There is left renal scarring. Nick Smith MD Septic Shock Reassessment Heart: Regular rate and rhythm Lungs: Clear Skin: Warm Peripheral Pulses: Bounding Right Radial Bounding Left Radial Bounding Right Popliteal Bounding Left Popliteal Bounding Right Dorsalis Pedis Bounding Left Dorsalis Pedis Bounding Right Posterior Tibial Bounding Left Posterior Tibial Capillary Refill: Brisk Assessment and Plan Problem List: (1) Kidney stone ICD Code: N20.0 Status: Acute Plan: Patient with a history of nephrolithiasis which has been recurrent. Continue IV hydration and strain urine Recently past quite a few stones (2) Hydronephrosis, left ICD Code: N13.30 Status: Acute Plan: Secondary to stone Continue IV hydration, urology follow-up appreciated Likely for stent placement (3) Sepsis secondary to UTI ICD Code: A41.9 Status: Acute Plan: Patient with tachycardia, fever, leukocytosis, hypotension and UTI, continue with IV Rocephin and follow urine cultures Blood cultures also pending (4) Hypothyroidism ICD Code: E03.9 Status: Acute Plan: Continue levothyroxine (5) HTN (hypertension), benign ICD Code: I10 Status: Acute Plan: Patient's home blood pressure medications will be held due to hypotension We'll resume when blood pressure more stable (6) Hypokalemia ICD Code: E87.6 Status: Acute Plan: Replace, check magnesium Assessment and Plan Plan of care to be determined by Hospital course Code Status Full code Discussed Condition With Patient, Arely BRUCE Physician Certification 2 Midnight Certification Type: Admission for Inpatient Services Order for Inpatient Services The services are ordered in accordance with Medicare regulations or non- Medicare payer requirements, as applicable. In the case of services not specified as inpatient-only, they are appropriately provided as inpatient services in accordance with the 2-midnight benchmark. Estimated LOS (days): 3 3 days is the estimated time the patient will need to remain in the hospital, assuming treatment plan goals are met and no additional complications. Post-Hospital Plan: Home Aleta Bradshaw MD Oct 19, 2016 10:18
[2016-10-19] MEDS: MORPHINE SULFATE 4 MG/ML INJ IV PRN ×2 (14:22→21:23)
--- NOTE | 2016-10-19 15:20 | EKG ---
Date Performed: 10/19/2016 Time Performed: 01:43:52 PTAGE: 60 years EKG: SINUS TACHYCARDIA INCOMPLETE RIGHT BUNDLE BRANCH BLOCK NONSPECIFIC ST & T-WAVE ABNORMALITY ABNORMAL RHYTHM ECG Consider anterolateral and inferior ischemia. PREVIOUS TRACING : 03/02/2016 06.15 DOCTOR: Joe Felder Interpretating Date/Time 10/19/2016 15:18:36
--- NOTE | 2016-10-19 15:20 | EKG ---
Date Performed: 10/19/2016 Time Performed: 03:24:11 PTAGE: 60 years EKG: Sinus rhythm INCOMPLETE RIGHT BUNDLE BRANCH BLOCK NONSPECIFIC ST & T-WAVE ABNORMALITY BORDERLINE ECG Consider ant erolateral and inferior ischemia. PREVIOUS TRACING 10/19/2016 [id number] DOCTOR: Joe Felder Interpretating Date/Time 10/19/2016 15:19:00
[2016-10-20] VITALS: BP 116/72; PULSE 80; RESP 16; TEMP 98.1; O2SAT 99
[2016-10-20] MEDS: SODIUM CHLORIDE 0.9% FLUSH 10 ML FLUSH IV FLUSH PRN ×2 (01:03→04:19)
[2016-10-20] MEDS: SODIUM CHLOR 0.9% 1000 ML INJ 1,000 ML IV SCH ×3 (01:03→20:16)
[2016-10-20] MEDS: MORPHINE SULFATE 4 MG/ML INJ IV PRN (04:19)
[2016-10-20 06:05] LABS: HEMATOCRIT 26.1 % (35.0-46.0); MEAN CORPUSCULAR HEMOGLOBIN 27.6 PG (27.0-34.0); PLATELET COUNT 158 TH/MM3 (150-450); RED BLOOD COUNT 3.04 MIL/MM3 (4.00-5.30); RED CELL DISTRIBUTION WIDTH 14.5 % (11.6-17.2); WHITE BLOOD COUNT 14.1 TH/MM3 (4.0-11.0)
[2016-10-20 06:24] LABS: HEMO FLAGS AUTO DIFF
[2016-10-20] MEDS: LEVOTHYROXINE SODIUM 88 MCG TAB PO SCH (06:35)
[2016-10-20 06:41] LABS: ALKALINE PHOSPHATASE 97 U/L (45-117); ALT (GPT) 12 U/L (10-53); ANION GAP 9 MEQ/L (5-15); AST (GOT) 17 U/L (15-37); BICARBONATE 19.9 MEQ/L (21.0-32.0); BLOOD UREA NITROGEN 13 MG/DL (7-18); CHLORIDE 117 MEQ/L (98-107); GLOMERULAR FILTRATION RATE 61 ML/MIN (>89); POTASSIUM 3.5 MEQ/L (3.5-5.1); SODIUM (NA) 146 MEQ/L (136-145); TOTAL BILIRUBIN ADULT 0.4 MG/DL (0.2-1.0)
[2016-10-20 07:00] VITALS: BP 131/72; PULSE 99; RESP 18; TEMP 99.2; O2SAT 98
[2016-10-20 07:29] LABS: BANDS 1 % (0-6); EOSINOPHILS 2 % (0-4); NEUTROPHIL # MANUAL DIFF 11.6 TH/MM3 (1.8-7.7); POLYS (SEG NEUTROPHILS) 81 % (16-70); WBC DIFF SAMPLE 100
[2016-10-20 07:30] LABS: PLATELET ESTIMATE SMEAR NORMAL (NORMAL); PLATELET MORPHOLOGY NORMAL (NORMAL); SCAN/DIFF FINAL DIFF MANUAL
[2016-10-20] MEDS ORDERED: MIDAZOLAM HCL 2 MG/2 ML VIAL ONE ×2 (08:03→08:12)
[2016-10-20] MEDS ORDERED: FAMOTIDINE 20 MG/2 ML VIAL ONE ×2 (08:03→08:12)
[2016-10-20] MEDS ORDERED: SODIUM CHLORIDE 0.9% INJ 100 ML ONE ×2 (08:16→08:18)
[2016-10-20] MEDS ORDERED: ceFAZolin INJ 1,000 MG VIAL ONE ×2 (08:16→08:18)
[2016-10-20] MEDS: SODIUM CHLORIDE 0.9% FLUSH 10 ML FLUSH IV FLUSH SCH ×2 (09:00→20:15)
--- NOTE | 2016-10-20 09:04 | PD.CONS ---
HPI Service Urology Consult Requested By Primary Care Physician No Primary Care Physician Diagnosis: (1) Kidney stone ICD Code: N20.0 (2) Hydronephrosis, left ICD Code: N13.30 (3) Sepsis secondary to UTI ICD Code: A41.9 (4) Hypothyroidism ICD Code: E03.9 (5) HTN (hypertension), benign ICD Code: I10 (6) Hypokalemia ICD Code: E87.6 History of Present Illness 60-year-old female presented with left-sided flank pain over last 24 hours. She is long history of nephrolithiasis in the past as well as the ureter injury after surgery for diverticulitis. She required an indwelling ureteral stent for many months and underwent reoperation for a colovesical fistula. She's also undergone ureteroscopy in the past on the left side for obstruction. She presents with 24-48 hour history of left-sided flank pain associated with nausea and vomiting. CT scan emergency room demonstrated left hydronephrosis with obstruction at the area of the UPJ with calcification present in that region. She is undergone prior ureteroscopy for this and no stone was identified in the past. Review of Systems ROS Limitations: Clinical Condition Constitutional: DENIES: Diaphoretic episodes Eyes: DENIES: Blurred vision Ears, nose, mouth, throat: DENIES: Tinnitus Respiratory: DENIES: Apneas Cardiovascular: DENIES: Chest pain Gastrointestinal: COMPLAINS OF: Abdominal pain Genitourinary: DENIES: Abnormal vaginal bleeding Musculoskeletal: COMPLAINS OF: Joint pain Integumentary: DENIES: Abnormal pigmentation Hematologic/lymphatic: DENIES: Bruising Immunologic/allergic: DENIES: Eczema Neurologic: DENIES: Abnormal gait Psychiatric: COMPLAINS OF: Anxiety, Depression Past Family Social History Past Medical History Diverticulitis Nephrolithiasis Depression Chronic low back pain Meningitis Past Surgical History Exploratory laparotomy for diverticulitis Robotic-assisted laparoscopic repair of colovesical fistula Multiple cystoscopies with left ureteroscopy and left double-J stent insertion Tonsillectomy Thyroidectomy Cardiac catheterization Hysterectomy Lumbar surgery with spinal rods placed Right total knee replacement Allergies: Coded Allergies: Cipro (Verified Allergy, Severe, hives, 10/19/16) Compazine (Verified Allergy, Severe, DYSTONIA, 10/19/16) Haldol (Verified Allergy, Severe, THROAT SWELLING, 10/19/16) Vancomycin (Verified Allergy, Severe, HIVES, 10/19/16) PT STATES SHE HAD REDNESS AND ITCHING AFTER ONE DOSE. WAS GIVEN BENADRYL IV Colace (Verified Allergy, Mild, HEADACHE, 10/19/16) Protonix (Verified Adverse Reaction, Severe, Headache, 10/19/16) Tramadol (Verified Adverse Reaction, Severe, GI DISTRESS, 10/19/16) Physical Exam Vital Signs Date Time Temp Pulse Resp B/P Pulse Ox O2 Delivery O2 Flow Rate FiO2 10/20/16 07:00 99.2 99 18 131/72 98 10/20/16 00:00 98.1 80 16 116/72 99 10/19/16 20:00 99.9 88 16 106/64 98 10/19/16 19:25 96 21 10/19/16 18:26 101.1 10/19/16 18:26 18 10/19/16 16:30 96 21 10/19/16 16:00 100.5 97 20 110/67 100 10/19/16 14:27 18 Physical Exam GENERAL: This is a well-nourished, well-developed patient, in no apparent distress. SKIN: No rashes, ecchymoses or lesions. Cool and dry. HEAD: Atraumatic. Normocephalic. No temporal or scalp tenderness. EYES: Pupils equal round and reactive. Extraocular motions intact. No scleral icterus. No injection or drainage. ENT: Nose without bleeding, purulent drainage or septal hematoma. Throat without erythema, tonsillar hypertrophy or exudate. Uvula midline. Airway patent. NECK: Trachea midline. No JVD or lymphadenopathy. Supple, nontender, no meningeal signs. CARDIOVASCULAR: Regular rate and rhythm without murmurs, gallops, or rubs. RESPIRATORY: Clear to auscultation. Breath sounds equal bilaterally. No wheezes , rales, or rhonchi. GASTROINTESTINAL: Abdomen soft, left-sided abdominal pain with palpation noted, nondistended. No hepato-splenomegaly, or palpable masses. No guarding. Left CVA tenderness is noted GENITOURINARY: Normal female external genitalia MUSCULOSKELETAL: Extremities without clubbing, cyanosis, or edema. No joint tenderness, effusion, or edema noted. No calf tenderness. Negative Homans sign bilaterally. NEUROLOGICAL: Awake and alert. Cranial nerves II through XII intact. Motor and sensory grossly within normal limits. Five out of 5 muscle strength in all muscle groups. Normal speech. Laboratory Tests Test 10/20/16 04:45 White Blood Count 14.1 Red Blood Count 3.04 Hemoglobin 8.4 Hematocrit 26.1 Mean Corpuscular Volume 86.0 Mean Corpuscular Hemoglobin 27.6 Mean Corpuscular Hemoglobin 32.0 Concent Red Cell Distribution Width 14.5 Platelet Count 158 Mean Platelet Volume 8.4 Neutrophils (%) (Auto) Lymphocytes (%) (Auto) Monocytes (%) (Auto) Eosinophils (%) (Auto) Basophils (%) (Auto) Neutrophils # (Auto) Lymphocytes # (Auto) Monocytes # (Auto) Eosinophils # (Auto) Basophils # (Auto) CBC Comment AUTO DIFF Differential Total Cells 100 Counted Neutrophils % (Manual) 81 Band Neutrophils % 1 Lymphocytes % 9 Monocytes % 7 Eosinophils % 2 Neutrophils # (Manual) 11.6 Differential Comment FINAL DIFF MANUAL Platelet Estimate NORMAL Platelet Morphology Comment NORMAL Sodium Level 146 Potassium Level 3.5 Chloride Level 117 Carbon Dioxide Level 19.9 Anion Gap 9 Blood Urea Nitrogen 13 Creatinine 0.93 Estimat Glomerular Filtration 61 Rate Random Glucose 105 Calcium Level 8.3 Total Bilirubin 0.4 Aspartate Amino Transf 17 (AST/SGOT) Alanine Aminotransferase 12 (ALT/SGPT) Alkaline Phosphatase 97 Total Protein 6.0 Albumin 2.3 Date/Time Procedure Status Source Growth 10/19/16 02:33 Urine Culture Received Urine Clean Catch Pending 10/19/16 01:55 Aerobic Blood Culture Received Blood Peripheral Pending 10/19/16 01:55 Anaerobic Blood Culture Received Blood Peripheral Pending Result Diagram: 10/20/16 0445 10/20/16 0445 Imaging Last Impressions Chest X-Ray 10/19/16 0143 Signed Impressions: Service Date/Time: Wednesday, October 19, 2016 01:54 - CONCLUSION: No acute disease. Nick Smith MD Abdomen/Pelvis CT 10/19/16 0000 Signed Impressions: Service Date/Time: Wednesday, October 19, 2016 03:22 - CONCLUSION: Severe left-sided hydronephrosis secondary to a be a stone at the IJ. There is left renal scarring. Nick Smith MD Assessment and Plan Assessment and Plan 60-year-old female with history of nephrolithiasis with hydronephrosis and obstruction on the left. Recommend cystoscopy left double-J stent. She will need ureteroscopy in the future with possible laser lithotripsy. Risk and benefits discussed and she is willing to proceed. Angel Cavazos DO Oct 20, 2016 09:04
--- NOTE | 2016-10-20 09:07 | PD.OP ---
Operative Report Date of Surgery: Oct 20, 2016 Preoperative Diagnosis: Left hydronephrosis with left UPJ stone/calcification Postoperative Diagnosis: Same Procedure: Cystoscopy with left retrograde study and left double-J stent insertion Anesthesia: Gen. LMA Surgeon: Angel Cavazos Communication Coordinator(s): None Resident Surgeon: None Operation and Findings: 60-year-old female with history of left hydronephrosis and left UPJ stone/ calcification. Decision made to bring the patient to the operating room and undergo cystoscopy left double-J stent insertion. Risk and benefits discuss preoperative she is willing to proceed. Patient was brought to the operating room identified by myself as Alicia Choudhary. She is placed in dorsal lithotomy position, prepped and draped in usual sterile fashion, received preprocedure antibiotics, and general LMA anesthesia was administered. 22 Japanese cystoscope was inserted in the bladder feliciano cystoscopy did not reveal any abnormalities. The left ureteral orifice was identified and a 5 Japanese opening catheter was inserted into the left ureteral orifice and retrograde study was performed. Some narrowing with calcification was noted at the area left UPJ. Mild hydronephrosis is also noted. A 0.35 sensor wire was then passed through the open-ended catheter with a good curl in the kidney and the opening catheter was removed. A 6 Japanese 20 cm left double-J stent was then placed with good curl the kidney and a good curl in the bladder. Debris was noted to drain from the stent at this time. The bladder was evacuated and the scope was removed and she was awoken and taken to the re-covering room in stable condition. She will follow-up in the office in a few weeks and be scheduled for a possible ureteroscopy. Angel Cavazos DO Oct 20, 2016 09:07
[2016-10-20] MEDS ORDERED: fentaNYL CITRATE 250 MCG/5 ML AMP ONE (09:20)
[2016-10-20] MEDS ORDERED: HYDROmorphone HCL PF 1 MG/ML VIAL ONE (09:48)
[2016-10-20 10:30] VITALS: BP 125/76; PULSE 88; RESP 18; TEMP 96.5
--- NOTE | 2016-10-20 10:47 | RADRPT ---
EXAM DATE/TIME: 10/20/2016 08:53 [facility] COMPARISON: CT ABDOMEN & PELVIS W/O CONTRAST, October 19, 2016, 3:22. UROGRAM, RETROGRADE PYELO, September 18, 2013, 1 4:16. INDICATIONS : Left ureteral stent placement. .9 minutes 2 CONTRAST: Instilled by Ordering Physician MEDICAL HISTORY : Chronic obstructive pulmonary disease. Hypertension. Meningitis. SURGICAL HISTORY : Hysterectomy. Colon resection. ENCOUNTER: Initial ACUITY: 1 day PAIN SCORE: Non-responsive. LOCATION: Left Kidney FINDINGS: 2 images from a retrograde pyelogram were performed. The first image demonstrates contrast in the lef t collecting system with a filling defect characteristic of a stone seen on a recent CT scan. The sec ond image demonstrates a in the left renal pelvis. CONCLUSION: Left stent in good position. Jef Antunez MD on October 20, 2016 at 10:43 Board Certified Radiologist. This report was verified electronically.
--- NOTE | 2016-10-20 10:58 | HHI.PR ---
Subjective Remarks Patient seen and evaluated today in follow-up postoperatively from placement of a left ureteral stent. Patient feels much better. Pain is better. She has required IV Dilaudid for pain control. Objective Vitals Vital Signs Date Time Temp Pulse Resp B/P Pulse Ox O2 Delivery O2 Flow Rate FiO2 10/20/16 10:30 96.5 88 18 125/76 10/20/16 07:00 99.2 99 18 131/72 98 10/20/16 00:00 98.1 80 16 116/72 99 10/19/16 20:00 99.9 88 16 106/64 98 10/19/16 19:25 96 21 10/19/16 18:26 101.1 10/19/16 18:26 18 10/19/16 16:30 96 21 10/19/16 16:00 100.5 97 20 110/67 100 10/19/16 14:27 18 I/O 10/19/16 10/19/16 10/19/16 10/20/16 10/20/16 10/20/16 07:00 15:00 23:00 07:00 15:00 23:00 Intake Total 600 ml 2306 ml 900 ml Output Total 250 ml Balance 600 ml 2306 ml 650 ml Intake Oral 300 ml 240 ml IV Total 300 ml 2066 ml 900 ml Output Urine Total 250 ml # Voids 4 2 # Bowel Movements 4 1 0 Result Diagram: 10/20/16 0445 10/20/16 0445 Objective Remarks GENERAL: This is a well-nourished, well-developed patient, in no apparent distress. CARDIOVASCULAR: Regular rate and rhythm without murmurs, gallops, or rubs. RESPIRATORY: Clear to auscultation. Breath sounds equal bilaterally. No wheezes , rales, or rhonchi. GASTROINTESTINAL: Abdomen soft, non-tender, nondistended. Normal active bowel sounds MUSCULOSKELETAL: Extremities without clubbing, cyanosis, or edema. NEURO: Alert & Oriented x4 to person, place, time, situation. Moves all ext x4 A/P Problem List: (1) Kidney stone ICD Code: N20.0 Status: Acute Plan: Continue IV hydration, strain urine, status post left ureteral stent today IV Dilaudid as needed (2) Sepsis secondary to UTI ICD Code: A41.9 Status: Acute Plan: Improved heart rate, fever, leukocytosis, hypotension Continue with empiric IV Rocephin and follow urine cultures Blood cultures also pending (3) Hypothyroidism ICD Code: E03.9 Status: Acute Plan: Continue levothyroxine Discharge Planning Likely discharge in a.m. on oral antibiotics Aleta Bradshaw MD Oct 20, 2016 10:58
[2016-10-20] MEDS: cefTRIAXone INJ 1,000 MG in SODIUM CHLORIDE 0.9% INJ 100 ML IV SCH (11:09)
[2016-10-20 11:54] VITALS: BP 134/75; PULSE 89; RESP 18; TEMP 98.6; O2SAT 96
[2016-10-20] MEDS ORDERED: SODIUM CHLORIDE 0.9% 10 ML VIAL ONE (12:00)
[2016-10-20] MEDS ORDERED: ONDANSETRON HCL 4 MG/2 ML VIAL IV PUSH ONE (12:00)
[2016-10-20] MEDS ORDERED: IOHEXOL 350 MG/ML 50 ML BTL (for RAD DIAG) ONE (12:00)
[2016-10-20] MEDS ORDERED: PROPOFOL 200 MG/20 ML AMP IV ONE (12:00)
[2016-10-20] MEDS: ACETAMINOPHEN/HYDROcodone 325 MG/5 MG TAB PO PRN ×2 (15:19→20:15)
[2016-10-20 20:00] VITALS: BP 144/77; PULSE 92; RESP 16; TEMP 97.3; O2SAT 96
[2016-10-21] VITALS: BP 137/78; PULSE 78; RESP 20; TEMP 97.6; O2SAT 98
[2016-10-21] MEDS: ACETAMINOPHEN/HYDROcodone 325 MG/5 MG TAB PO PRN ×2 (01:55→06:18)
[2016-10-21] MEDS: SODIUM CHLOR 0.9% 1000 ML INJ 1,000 ML IV SCH (01:56)
[2016-10-21] MEDS: MORPHINE SULFATE 4 MG/ML INJ IV PRN (04:14)
[2016-10-21] MEDS: SODIUM CHLORIDE 0.9% FLUSH 10 ML FLUSH IV FLUSH PRN (04:15)
[2016-10-21] MEDS: LEVOTHYROXINE SODIUM 88 MCG TAB PO SCH (06:18)
[2016-10-21 08:00] VITALS: BP 141/84; PULSE 76; RESP 18; TEMP 97.2; O2SAT 97
[2016-10-21] MEDS: SODIUM CHLORIDE 0.9% FLUSH 10 ML FLUSH IV FLUSH SCH (09:00)
[2016-10-21] MEDS: cefTRIAXone INJ 1,000 MG in SODIUM CHLORIDE 0.9% INJ 100 ML IV SCH (09:24)
[2016-10-21] MEDS ORDERED: AMPI500C8 PO (10:00)
--- NOTE | 2016-10-21 10:01 | HHI.DCPOC ---
Discharge Care Plan Diagnosis: (1) Sepsis secondary to UTI (2) Hydronephrosis, left Goals to Promote Your Health * To prevent worsening of your condition and complications * To maintain your health at the optimal level Directions to Meet Your Goals Take your medications as prescribed Follow your dietary instruction Follow activity as directed Keep your appointments as scheduled Take your immunizations and boosters as scheduled If your symptoms worsen call your PCP, if no PCP go to Urgent Care Center or Emergency Room Smoking is Dangerous to Your Health. Avoid second hand smoke Call the 24-hour hour crisis hotline for domestic abuse at Aleta Bradshaw MD Oct 21, 2016 10:01
[2016-10-21] MEDS ORDERED: HYDR-3516 PO (10:04)
--- NOTE | 2016-10-21 10:06 | HHI.DS ---
Discharge Summary Admission Date Oct 19, 2016 at 05:14 Discharge Date: Oct 21, 2016 Admitting Diagnosis sepsis, UTI, hydronephrosis, hypokalemia, h/o cad (1) Kidney stone ICD Code: N20.0 (2) Sepsis secondary to UTI ICD Code: A41.9 (3) Hypothyroidism ICD Code: E03.9 Procedures ureteral stent Brief History - From Admission This patient is a very pleasant 60-year-old female with recurrent nephrolithiasis previously requiring stent placement and stent removal. Patient has had kidney stones for several years. Over the last 3 days patient has had increasing left-sided flank pain and fever of 102.7 at home. She is experiencing dysuria and frequency and urinary incontinence. She was quite familiar with the symptoms and to come to the hospital for further evaluation. She does have evidence of sepsis with leukocytosis, hypotension, tachycardia and fever. Patient has been given IV antibiotics and IV fluids. Her pain was 10 out of 10 and relieved with IV morphine. She is admitted to the hospital for further evaluation of nephrolithiasis and hydronephrosis. Hydronephrosis on my review is significant on the left side with significant perinephric stranding and edema in the left kidney with an apparent stone. CBC/BMP: 10/20/16 0445 10/20/16 0445 Significant Findings Laboratory Tests Test 10/19/16 10/19/16 10/19/16 10/19/16 01:50 02:25 02:33 08:10 White Blood Count 18.3 TH/MM3 (4.0-11.0) Red Blood Count 3.98 MIL/MM3 (4.00-5.30) Hemoglobin 11.4 GM/DL (11.6-15.3) Hematocrit 34.0 % (35.0-46.0) Neutrophils (%) (Auto) 83.0 % (16.0-70.0) Lymphocytes (%) (Auto) 7.4 % (9.0-44.0) Neutrophils # (Auto) 15.1 TH/MM3 (1.8-7.7) Monocytes # (Auto) 1.4 TH/MM3 (0-0.9) Potassium Level 2.5 MEQ/L (3.5-5.1) Blood Urea Nitrogen 27 MG/DL (7-18) Creatinine 1.50 MG/DL (0.50-1.00) Estimat Glomerular Filtration 35 ML/MIN (>89) Rate Troponin I LESS THAN 0.02 LESS THAN 0.02 NG/ML NG/ML (0.02-0.05) (0.02-0.05) Albumin 3.2 GM/DL (3.4-5.0) Urine Protein 100 mg/dL (NEG-TRACE) Urine Occult Blood LARGE (NEG) Urine Leukocyte Esterase MOD (NEG) Urine RBC 10-14 /hpf (0-3) Urine WBC 50-99 /hpf (0-5) Urine Yeast with Hyphae RARE (NONE) Test 10/20/16 04:45 White Blood Count 14.1 TH/MM3 (4.0-11.0) Red Blood Count 3.04 MIL/MM3 (4.00-5.30) Hemoglobin 8.4 GM/DL (11.6-15.3) Hematocrit 26.1 % (35.0-46.0) Neutrophils % (Manual) 81 % (16-70) Neutrophils # (Manual) 11.6 TH/MM3 (1.8-7.7) Sodium Level 146 MEQ/L (136-145) Chloride Level 117 MEQ/L (98-107) Carbon Dioxide Level 19.9 MEQ/L (21.0-32.0) Estimat Glomerular Filtration 61 ML/MIN (>89) Rate Calcium Level 8.3 MG/DL (8.5-10.1) Total Protein 6.0 GM/DL (6.4-8.2) Albumin 2.3 GM/DL (3.4-5.0) Imaging Last Impressions Retrograde Pyelogram 10/20/16 0000 Signed Impressions: Service Date/Time: Thursday, October 20, 2016 08:53 - CONCLUSION: Left stent in good position. Jef Antunez MD Chest X-Ray 10/19/16 0143 Signed Impressions: Service Date/Time: Wednesday, October 19, 2016 01:54 - CONCLUSION: No acute disease. Nick Smith MD Abdomen/Pelvis CT 10/19/16 0000 Signed Impressions: Service Date/Time: Wednesday, October 19, 2016 03:22 - CONCLUSION: Severe left-sided hydronephrosis secondary to a be a stone at the IJ. There is left renal scarring. Nick Smith MD PE at Discharge GENERAL: This is a well-nourished, well-developed patient, in no apparent distress. CARDIOVASCULAR: Regular rate and rhythm without murmurs, gallops, or rubs. RESPIRATORY: Clear to auscultation. Breath sounds equal bilaterally. No wheezes , rales, or rhonchi. GASTROINTESTINAL: Abdomen soft, non-tender, nondistended. Normal active bowel sounds MUSCULOSKELETAL: Extremities without clubbing, cyanosis, or edema. NEURO: Alert & Oriented x4 to person, place, time, situation. Moves all ext x4 Pt update on day of discharge Patient seen today in follow-up for UTI with hydronephrosis since an obstructing stone. Status post stent placement yesterday. No new events. Overall improved. Discharge plans discussed with patient and she is in agreement Hospital Course Patient is a 60-year-old female with recurrent kidney stones who had evidence of sepsis with UTI and obstruction from stone. Patient was treated with IV fluids and antibiotics. She did well and her urologist at the left ureteral stent in. Patient was discharged home Pt Condition on Discharge: Good Discharge Disposition: Discharge Home Discharge Time: <= 30 minutes Discharge Instructions DIET: Follow Instructions for: As Tolerated, No Restrictions Activities you can perform: Regular-No Restrictions Follow up Referrals: Urology - 2 Weeks with Angel Cavazos DO New Medications: Ampicillin (Ampicillin) 500 Mg Cap 500 MG PO QID Infection #10 Ref 0 CAP Hydrocodone-Acetaminophen (Hydrocodone-Acetaminophen) 5-325 mg Tab 1 TAB PO Q4H PRN PAIN SCALE 3 TO 5 #20 TAB Continued Medications: Levothyroxine (Synthroid) 88 Mcg Tab 88 MCG PO DAILY Thyroid #30 Ref 0 TAB Lovastatin (Lovastatin) 40 Mg Tab 40 MG PO DAILY Cholesterol Management #30 Ref 0 TAB Metoprolol Tartrate (Metoprolol Tartrate) 50 Mg Tab 50 MG PO BID #60 Ref 0 TAB Ondansetron Odt (Zofran Odt) 4 Mg Tab 4 MG SL Q6HR PRN Nausea/Vomiting #10 Ref 0 TAB Aleta Bradshaw MD Oct 21, 2016 10:06
== END 2016-10-21 12:30 | disposition home or self-care (01) | DRG 872 ==
LOC: PHED 01:32 → PHEDA 05:14 → PH3A 06:44
PROVIDERS: ADMIT Hospitalist; ATTEND Hospitalist
PROC: BT1B0ZZ Fluoroscopy of Bladder and Urethra using High Osmolar Contrast (ICD-10-PCS; 2016-10-20)
PROC: 0T778DZ Dilation of Left Ureter with Intraluminal Device, Via Natural or Artificial Opening Endoscopic (ICD-10-PCS; principal; 2016-10-20 08:23)
DX: A41.9 Sepsis, unspecified organism (principal); I95.9 Hypotension, unspecified; N13.0 Hydronephrosis with ureteropelvic junction obstruction; N39.0 Urinary tract infection, site not specified; I10 Essential (primary) hypertension; E03.9 Hypothyroidism, unspecified; E87.6 Hypokalemia; F32.9 Major depressive disorder, single episode, unspecified; G89.29 Other chronic pain; M54.9 Dorsalgia, unspecified; Z96.651 Presence of right artificial knee joint; I25.10 Atherosclerotic heart disease of native coronary artery without angina pectoris; E78.5 Hyperlipidemia, unspecified; J44.9 Chronic obstructive pulmonary disease, unspecified; K21.9 Gastro-esophageal reflux disease without esophagitis; Z87.440 Personal history of urinary (tract) infections; Z87.442 Personal history of urinary calculi; M19.90 Unspecified osteoarthritis, unspecified site; R00.0 Tachycardia, unspecified
CPT/HCPCS: 71010; 74176; 74420; 76000; 80053; 81001; 83605; 83690; 83735; 84484; 85007; 85025; 85027; 87040; 87086; 93005; 96365; 96366; 96367; C1769; C2617; J0690; J0696; J1170; J2250; J2270; J2405; J2543; J3010; J3480; J7030; Q9967

== ENCOUNTER 2016-11-17 05:49 | Observation (INO) | payer OTHER ==
[2016-11-17] VITALS (10 sets, daily range): BP systolic 102–146; BP diastolic 61–79; PULSE 77–95; RESP 16–20; TEMP 96–99.3; O2SAT 95–100
[~2016-11-17] VITALS: Ht 152.4 cm; Wt 52.0 kg
[~2016-11-17 05:49] MED LIST changes: +HYDR-3516 PO; -HYDR-3533 PO; +MACR100C2 PO; +OXYB5TAB10 PO; -PERC10TA27 PO
[2016-11-17] MEDS ORDERED: ONDANSETRON HCL 4 MG/2 ML VIAL IV PUSH ONE ×2 (06:15→12:00)
[2016-11-17] MEDS ORDERED: MORPHINE SULFATE 4 MG/ML INJ IV PUSH ONE (06:15)
[2016-11-17] MEDS ORDERED: TUMS500C CHEW (06:15)
--- NOTE | 2016-11-17 06:15 | PD ---
HPI Chief Complaint: left flank pain Time Seen by Provider: 05:57 Travel History International Travel<30 days: No Contact w/Intl Traveler<30days: No Traveled to known affect area: No History of Present Illness HPI 60-year-old female complains of left flank pain. Patient has history of recurrent nephrolithiasis that required stent placement. Patient was admitted last month for sepsis, UTI, hydronephrosis, hypokalemia. Urologist was consulted and patient had stent placement last month. Patient has been doing well until yesterday when she started having severe left-sided flank pain. Patient states the pain is sharp pain started at the left flank area with radiation to the left side abdomen. Patient states that she has nausea but no vomiting or diarrhea. Patient denies any fever chills. Patient noticed cloudy urine started 2 days ago. Patient denies any dysuria or frequency. Patient has history of chronic surgical intervention with partial colon resection for diverticulitis and subsequent left ureteral injury, colovesicular fistula and recurrent UTI and pyelonephritis. Patient has history of residual nephrolithiasis and renal calcification. Patient has been seen by Dr. Cavazos, urologist. Patient also has history of anemia, hyperlipidemia, hypertension, renal insufficiency, COPD, gastric ulcer. PFSH Past Medical History Anemia: Yes Arthritis: Yes (degenerative arthritis) Asthma: No Depression: No Heart Rhythm Problems: Yes (tachycardia) Cancer: No High Cholesterol: Yes Chest Pain: Yes Congestive Heart Failure: No COPD: Yes Cerebrovascular Accident: No Diabetes: No Diminished Hearing: No Endocrine: Yes Gastrointestinal Disorders: Yes (diverticulitis and a fistula hx of gastric ulcers, 2 X COLON RESECTIONS) GERD: Yes Genitourinary: Yes (hx of uti and kidney stones) Headaches: Yes Hepatitis: No Hiatal Hernia: No Hypertension: Yes Immune Disorder: No Kidney Stones: Yes Musculoskeletal: Yes (arthritis in the neck and lower back, 5 X RECONSTRUCTIVE SURGERIES ON R ARM) Neurologic: Yes (BACTERIA MENINGITIS (1986)) Respiratory: Yes Immunizations Current: Yes Renal Failure: Yes Thyroid Disease: Yes (hx of total thyroidectomy) Ulcer: Yes Menopausal: Yes : 0 Para: 0 Past Surgical History Abdominal Surgery: Yes (colectomy/ILEOSTOMY- REVERSAL ON 02/19/2014) AICD: No Body Medical Devices: lower lumbar right knee Cardiac Surgery: Yes (cathertization 08/25) Ear Surgery: No Endocrine Surgery: Yes (thyroidectomy) Eye Surgery: No Genitourinary Surgery: Yes (several surgeries for left ureter ureteral stents place and removed) Gynecologic Surgery: Yes (ovary removal and hysterectomy) Hysterectomy: Yes Insulin Pump: No Joint Replacement: Yes (RTKR 2002, [facility] [place]/SCREWS) Neurologic Surgery: Yes (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 WAS GIVEN BENADRYL IV docusate (Verified Allergy, Mild, HEADACHE, 11/04/16) pantoprazole (Verified Adverse Reaction, Severe, Headache, 11/04/16) tramadol (Verified Adverse Reaction, Severe, GI DISTRESS, 11/04/16) Reported Meds & Prescriptions Reported Meds & Active Scripts Active Bactrim DS (Sulfamethoxazole-Trimethoprim) 800-160 Mg Tab 1 Tab PO BID Ditropan (Oxybutynin Chloride) 5 Mg Tab 5 Mg PO Q12HR Hydrocodone-Acetaminophen 5-325 mg Tab 1 Tab PO Q4H PRN Zofran Odt (Ondansetron Odt) 4 Mg Tab 4 Mg SL Q6HR PRN Reported Zantac (Ranitidine HCl) 150 Mg Tab 150 Mg PO DAILY Tums (Calcium Carbonate (Antacid)) 500 Mg Chew 500 Mg CHEW PRN Metoprolol Tartrate 50 Mg Tab 50 Mg PO BID Synthroid (Levothyroxine Sodium) 88 Mcg Tab 88 Mcg PO DAILY Review of Systems General / Constitutional: No: Fever Eyes: No: Visual changes HENT: No: Headaches Cardiovascular: No: Chest Pain or Discomfort Respiratory: No: Shortness of Breath Gastrointestinal: Positive: Nausea, Abdominal Pain Genitourinary: No: Dysuria Musculoskeletal: No: Pain Skin: No Rash Neurologic: No: Weakness Psychiatric: No: Depression Endocrine: No: Polydipsia Hematologic/Lymphatic: No: Easy Bruising Physical Exam Narrative GENERAL: Thin female, no acute distress. SKIN: Focused skin assessment warm/dry. HEAD: Normocephalic. EYES: No scleral icterus. No injection or drainage. NECK: Supple, trachea midline. No JVD or lymphadenopathy. CARDIOVASCULAR: Regular rate and rhythm without murmurs, gallops, or rubs. RESPIRATORY: Breath sounds equal bilaterally. No accessory muscle use. GASTROINTESTINAL: Abdomen soft, nondistended. Patient has moderate tenderness on palpation left upper quadrant of the abdomen. No rebound tenderness. No mass. MUSCULOSKELETAL: No cyanosis, or edema. BACK: Patient has moderate tenderness palpation left flank area. Neurologic exam normal. Data Data Last Documented VS Vital Signs Date Time Temp Pulse Resp B/P (MAP) Pulse Ox O2 Delivery O2 Flow Rate FiO2 11/17/16 06:03 98.9 86 16 146/70 (95) 100 Orders Orders Complete Blood Count With Diff (11/17/16 06:06) Comprehensive Metabolic Panel (11/17/16 06:06) Prothrombin Time / Inr (Pt) (11/17/16 06:06) Act Partial Throm Time (Ptt) (11/17/16 06:06) Urinalysis - C+S If Indicated (11/17/16 06:06) Ct Abd/Pel W/O Iv Contrast (11/17/16 06:06) Iv Access Insert/Monitor (11/17/16 06:06) Ecg Monitoring (11/17/16 06:06) Oximetry (11/17/16 06:06) Sodium Chlor 0.9% 1000 Ml Inj (Ns 1000 M (11/17/16 06:15) Morphine Inj (Morphine Inj) (11/17/16 06:15) Ondansetron Inj (Zofran Inj) (11/17/16 06:15) MDM Medical Decision Making Medical Screen Exam Complete: Yes Emergency Medical Condition: Yes Differential Diagnosis Differential diagnosis including nephrolithiasis, pyelonephritis, musculoskeletal. Narrative Course 60-year-old female with left flank pain and left upper quadrant abdominal pain. History of recurrent nephrolithiasis status post stent placement. Normal saline solution 1 25 cc an hour. Raphael Carty MD Nov 17, 2016 06:15
[2016-11-17] MEDS ORDERED: ZANT150T2 PO (06:16)
[2016-11-17 06:36] LABS: AUTOMATED NEUTROPHIL # 16.6 TH/MM3 (1.8-7.7); BASOPHIL # 0.5 TH/MM3 (0-0.2); BASOPHIL % 2.6 % (0.0-2.0); EOSINOPHIL # 0.4 TH/MM3 (0-0.4); EOSINOPHIL % 1.8 % (0.0-4.0); HEMATOCRIT 30.6 % (35.0-46.0); HEMO FLAGS DIFF FINAL; MEAN CELL VOLUME 84.2 FL (80.0-100.0); MEAN CORPUSCULAR HEMOGLOBIN 27.3 PG (27.0-34.0); MEAN CORPUSCULAR HGB CONC 32.5 % (32.0-36.0); MONO % 5.2 % (0.0-8.0); NEUT % 85.4 % (16.0-70.0); PLATELET COUNT 337 TH/MM3 (150-450); RED BLOOD COUNT 3.63 MIL/MM3 (4.00-5.30); WHITE BLOOD COUNT 19.5 TH/MM3 (4.0-11.0)
[2016-11-17 06:46] LABS: CHLORIDE 107 MEQ/L (98-107); POTASSIUM 4.3 MEQ/L (3.5-5.1); SODIUM (NA) 137 MEQ/L (136-145)
[2016-11-17] MEDS: SODIUM CHLOR 0.9% 1000 ML INJ 1,000 ML IV SCH ×4 (06:48→22:54)
[2016-11-17 06:49] LABS: ANION GAP 8 MEQ/L (5-15); APTT (PATIENT) 29.8 SEC (24.3-30.1); BICARBONATE 21.7 MEQ/L (21.0-32.0); BLOOD UREA NITROGEN 33 MG/DL (7-18); INTERNATIONAL NORMALIZED RATIO 0.9 RATIO; PROTHROMBIN TIME - PATIENT 10.4 SEC (9.8-11.6)
[2016-11-17 06:52] LABS: ALT (GPT) 14 U/L (10-53); AST (GOT) 14 U/L (15-37); GLOMERULAR FILTRATION RATE 38 ML/MIN (>89)
[2016-11-17 06:54] LABS: TOTAL BILIRUBIN ADULT 0.4 MG/DL (0.2-1.0)
[2016-11-17 06:55] LABS: ALKALINE PHOSPHATASE 150 U/L (45-117)
[2016-11-17] MEDS ORDERED: cefTRIAXone INJ 1,000 MG in SODIUM CHLORIDE 0.9% INJ 100 ML IV ONE (07:00)
--- NOTE | 2016-11-17 07:07 | RADRPT ---
EXAM DATE/TIME: 11/17/2016 06:38 [place] COMPARISON: CT ABDOMEN & PELVIS W/O CONTRAST, October 19, 2016, 3:22. INDICATIONS : Left flank pain. ORAL CONTRAST: No oral contrast ingested. RADIATION DOSE: 5.49 CTDIvol (mGy) MEDICAL HISTORY : Carcinoma, tonsillar. Hypertension. Chronic obstructive pulmonary disease. SURGICAL HISTORY : Hysterectomy. Colon resection.renal stent, left ENCOUNTER: Initial ACUITY: 1 day PAIN SCALE: 6/10 LOCATION: Left flank TECHNIQUE: Volumetric scanning of the abdomen and pelvis was performed. Using automated exposure control and adjustment of the mA and/or kV according to patient size, radiation dose was kept as low as reasonably achievable to obtain optimal diagnostic quality images. DICOM format image data is av ailable electronically for review and comparison. FINDINGS: LOWER LUNGS: The visualized lower lungs are clear. LIVER: Homogeneous density without lesion. There is no dilation of the biliary tree. Gallbladder is distended but is otherwise stable in appearance. SPLEEN: Normal size without lesion. PANCREAS: Within normal limits. KIDNEYS: Interval placement of double-J left ureteral stent appears in good position. Previously demonstrated 10 x 6 mm left UPJ calcified calculus has been displaced into the renal pelvis. There is residual moderate hydronephrosis on the left with mild perinephric stranding. Right kidney appears u nremarkable. ADRENAL GLANDS: Within normal limits. VASCULAR: There is no aortic aneurysm. BOWEL/MESENTERY: Redemonstration anastomotic line in the sigmoid colon. Bowel appears grossly unr emarkable. There is no free intraperitoneal air or fluid. ABDOMINAL WALL: Within normal limits. RETROPERITONEUM: There is no lymphadenopathy. BLADDER: Unremarkable without significant bladder wall thickening or radiopaque calculi. REPRODUCTIVE: Within normal limits. INGUINAL: There is no lymphadenopathy or hernia. MUSCULOSKELETAL: Posterior transpedicular carline and screw fixation at L4-S1. CONCLUSION: 1. Interval placement of double-J left ureteral stent with displacement of the left UV left UPJ stone into the renal pelvis. Moderate hydronephrosis which may reflect residual/resolving calyceal promine nce although malfunctioning stent cannot be excluded. 2. Remainder of the exam is unchanged. Jimbo Pepe MD on November 17, 2016 at 6:51 Board Certified Radiologist. This report was verified electronically.
[2016-11-17] MEDS ORDERED: SODIUM CHLOR 0.9% 1000 ML INJ 1,000 ML IV ONE (07:15)
[2016-11-17 07:42] LABS: BLOOD, URINE MOD (NEG); GLUCOSE,URINE NEG (NEG); KETONE, URINE NEG (NEG); NITRITE,URINE NEG (NEG); PH, URINE 5.5 (5.0-8.5)
--- NOTE | 2016-11-17 07:48 | PD ---
Physical Exam Narrative GENERAL: thin, well-developed patient. SKIN: Warm and dry. HEAD: Normocephalic and atraumatic. EYES: No injection or drainage. ENT: No nasal drainage noted. NECK: Supple, trachea midline. CARDIOVASCULAR: Regular rate and rhythm RESPIRATORY: no increased effort. No accessory muscle use. NEUROLOGICAL: Awake and alert. moves all extremities. Normal speech. Data Data Last Documented VS Vital Signs Date Time Temp Pulse Resp B/P (MAP) Pulse Ox O2 Delivery O2 Flow Rate FiO2 11/17/16 07:22 18 11/17/16 06:53 98.1 77 112/79 (90) 99 Room Air Orders Orders Complete Blood Count With Diff (11/17/16 06:06) Comprehensive Metabolic Panel (11/17/16 06:06) Prothrombin Time / Inr (Pt) (11/17/16 06:06) Act Partial Throm Time (Ptt) (11/17/16 06:06) Urinalysis - C+S If Indicated (11/17/16 06:06) Ct Abd/Pel W/O Iv Contrast (11/17/16 06:06) Iv Access Insert/Monitor (11/17/16 06:06) Ecg Monitoring (11/17/16 06:06) Oximetry (11/17/16 06:06) Sodium Chlor 0.9% 1000 Ml Inj (Ns 1000 M (11/17/16 06:15) Morphine Inj (Morphine Inj) (11/17/16 06:15) Ondansetron Inj (Zofran Inj) (11/17/16 06:15) Ceftriaxone Inj (Rocephin Inj) (11/17/16 07:00) Blood Culture (11/17/16 06:57) Lactic Acid Sepsis Protocol (11/17/16 06:57) Sodium Chlor 0.9% 1000 Ml Inj (Ns 1000 M (11/17/16 07:15) Diet Npo (11/17/16 Breakfast) Consult Urology (11/17/16 ) Fluconazole (Diflucan) (11/17/16 08:00) Consent (11/17/16 08:00) Admit Order (Ed Use Only) (11/17/16 08:19) Labs Laboratory Tests Test 11/17/16 06:25 11/17/16 07:20 White Blood Count 19.5 TH/MM3 Red Blood Count 3.63 MIL/MM3 Hemoglobin 9.9 GM/DL Hematocrit 30.6 % Mean Corpuscular Volume 84.2 FL Mean Corpuscular Hemoglobin 27.3 PG Mean Corpuscular Hemoglobin Concent 32.5 % Red Cell Distribution Width 14.0 % Platelet Count 337 TH/MM3 Mean Platelet Volume 7.6 FL Neutrophils (%) (Auto) 85.4 % Lymphocytes (%) (Auto) 5.0 % Monocytes (%) (Auto) 5.2 % Eosinophils (%) (Auto) 1.8 % Basophils (%) (Auto) 2.6 % Neutrophils # (Auto) 16.6 TH/MM3 Lymphocytes # (Auto) 1.0 TH/MM3 Monocytes # (Auto) 1.0 TH/MM3 Eosinophils # (Auto) 0.4 TH/MM3 Basophils # (Auto) 0.5 TH/MM3 CBC Comment DIFF FINAL Differential Comment Prothrombin Time 10.4 SEC Prothromb Time International Ratio 0.9 RATIO Activated Partial Thromboplast Time 29.8 SEC Blood Urea Nitrogen 33 MG/DL Creatinine 1.40 MG/DL Random Glucose 103 MG/DL Total Protein 8.2 GM/DL Albumin 3.3 GM/DL Calcium Level 10.4 MG/DL Alkaline Phosphatase 150 U/L Aspartate Amino Transf (AST/SGOT) 14 U/L Alanine Aminotransferase (ALT/SGPT) 14 U/L Total Bilirubin 0.4 MG/DL Sodium Level 137 MEQ/L Potassium Level 4.3 MEQ/L Chloride Level 107 MEQ/L Carbon Dioxide Level 21.7 MEQ/L Anion Gap 8 MEQ/L Estimat Glomerular Filtration Rate 38 ML/MIN Urine Collection Type CLEAN CATCH Urine Color YELLOW Urine Turbidity SLIGHT Urine pH 5.5 Urine Specific [place] 1.023 Urine Protein TRACE mg/dL Urine Glucose (UA) NEG mg/dL Urine Ketones NEG mg/dL Urine Occult Blood MOD Urine Nitrite NEG Urine Bilirubin NEG Urine Leukocyte Esterase MOD Urine RBC 20-24 /hpf Urine WBC 100-200 /hpf Urine Squamous Epithelial Cells 0-5 /hpf Urine Bacteria FEW /hpf Urine Yeast with Hyphae MOD Urine Yeast (Budding) FEW Microscopic Urinalysis Comment CULTURE INDICATED Urine Collection Time 07:20 Lactic Acid Level 0.8 mmol/L MDM Medical Record Reviewed: Yes (recent visits reviewed) Supervised Visit with DIVYA: No Interpretation(s) Last 24 hours Impressions Abdomen/Pelvis CT 11/17/16 0606 Signed Impressions: Service Date/Time: Thursday, November 17, 2016 06:38 - CONCLUSION: 1. Interval placement of double-J left ureteral stent with displacement of the left UV left UPJ stone into the renal pelvis. Moderate hydronephrosis which may reflect residual/resolving calyceal prominence although malfunctioning stent cannot be excluded. 2. Remainder of the exam is unchanged. Jimbo Pepe MD Narrative Course 60 y/o female presents with left flank pain and nausea with ill feeling over past couple days with recent stent, notes recently on bactrim but no longer on. here with elevated creatnine and wbc from prior, ct with possible stent malfunction-will discuss with her urologist dr hernandes and dose with ivf while awaiting lactic acid and ua, received rocephin prior to my arrival, npo since 3 am patient updated and agrees to observation Physician Communication Physician Communication dr hernandes states that he will follow, ivf and antibiotics for now, can stay in [place] dr garcía agrees to admit Diagnosis Primary Impression: Urinary tract infection Qualified Codes: N39.0 - Urinary tract infection, site not specified Additional Impressions: History of ureter stent Creatinine elevation Leukocytosis Qualified Codes: D72.829 - Elevated white blood cell count, unspecified Admitting Information Admitting Physician Requests: Observation Talia Gandhi MD Nov 17, 2016 07:47
[2016-11-17 07:52] LABS: METHOD OF COLLECTION CLEAN CATCH; URINE COLOR YELLOW (YELLW/STRAW)
[2016-11-17 07:53] LABS: WBC, URINE 100-200 /hpf (0-5)
[2016-11-17 07:54] LABS: BACTERIA, URINE FEW /hpf; SQUAMOUS EPITHELIAL CELL URINE 0-5 /hpf (0-5)
[2016-11-17 07:56] LABS: COMMENT (UR) CULTURE INDICATED; CULTURE IF INDICATED CULTURE INDICATED
[2016-11-17] MEDS ORDERED: FLUCONAZOLE 200 MG TAB PO ONE (08:00)
[2016-11-17] MEDS ORDERED: NALOXONE HCL 0.4 MG/ML AMP IV PRN (08:30)
[2016-11-17] MEDS ORDERED: SODIUM CHLORIDE 0.9% FLUSH 10 ML FLUSH IV FLUSH PRN (08:30)
[2016-11-17] MEDS ORDERED: BISACODYL 10 MG SUPP RECTAL PRN (09:00)
[2016-11-17] MEDS ORDERED: ONDANSETRON HCL 4 MG/2 ML VIAL IVP PRN (09:00)
[2016-11-17] MEDS ORDERED: ACETAMINOPHEN/HYDROcodone 325 MG/7.5 MG TAB PO PRN (09:00)
[2016-11-17] MEDS ORDERED: MAGNESIUM HYDROXIDE SUSP 30 ML CUP PO PRN (09:00)
[2016-11-17] MEDS: SODIUM CHLORIDE 0.9% FLUSH 10 ML FLUSH IV FLUSH SCH ×2 (09:00→21:00)
[2016-11-17] MEDS ORDERED: SENNOSIDES 8.6 MG TAB PO PRN (09:00)
[2016-11-17] MEDS ORDERED: ACETAMINOPHEN/HYDROcodone 325 MG/5 MG TAB PO PRN (09:00)
[2016-11-17] MEDS ORDERED: LACTULOSE SYRUP 20 GM/30 ML CUP PO PRN (09:00)
[2016-11-17] MEDS ORDERED: ACETAMINOPHEN 325 MG TAB PO PRN (09:00)
[2016-11-17] MEDS: ENOXAPARIN SODIUM 40 MG/0.4 ML SYRINGE SQ SCH (09:07)
[2016-11-17] MEDS: LACTOBACILLUS ACIDOPHILUS TAB PO SCH ×3 (09:25→17:05)
--- NOTE | 2016-11-17 10:53 | HHI.HP ---
[facility] No Primary Care Physician Admission Diagnosis uti, leukocytosis, ureteral stent Diagnoses: Travel History International Travel<30 Days: No Contact w/Intl Traveler <30 Da: No Traveled to Known Affected Are: No History of Present Illness Mrs. Choudhary is a 60-year-old female. She has come into the ER secondary to left flank pain. 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 She has problems with recurrent urinary tract infections and chronic kidney disease of the left kidney. Recently ( approximately 2 weeks ago) she had a stent placed again the left side and today she comes in secondary to pain. She is also found to have a urinary tract infection. Imaging shows possibility of dislodgment and displacement of the stent. No other complaints. Sepsis criteria are not present. Review of Systems Constitutional: DENIES: Fever, Chills, Change in appetite Endocrine: DENIES: Heat/cold intolerance Eyes: DENIES: Blurred vision, Eye pain Ears, nose, mouth, throat: DENIES: Tinnitus, Hearing loss, Vertigo Respiratory: DENIES: Cough, Wheezing, Sputum production Cardiovascular: DENIES: Chest pain, Palpitations, Syncope Gastrointestinal: DENIES: Black stools, Bloody stools, Constipation Musculoskeletal: DENIES: Joint pain, Muscle aches, Back pain Integumentary: DENIES: Abnormal pigmentation Hematologic/lymphatic: DENIES: Bruising Immunologic/allergic: DENIES: Eczema Neurologic: DENIES: Abnormal gait Psychiatric: DENIES: Anxiety, Confusion, Hallucinations Past Family Social History Past Medical History Recurrent urinary tract infections Chronic kidney disease of left kidney Left ureter stenosis History of meningitis 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) History of toxic shock syndrome and sepsis Coronary artery disease Hypothyroidism Past Surgical History Left ureter stenting 7-8 Back surgery with hardware Right knee arthroplasty History of Partial Colectomy History of ileostomy History of ileostomy reversal Reported Medications Reported Meds & Active Scripts Active Bactrim DS (Sulfamethoxazole-Trimethoprim) 800-160 Mg Tab 1 Tab PO BID Ditropan (Oxybutynin Chloride) 5 Mg Tab 5 Mg PO Q12HR Hydrocodone-Acetaminophen 5-325 mg Tab 1 Tab PO Q4H PRN Zofran Odt (Ondansetron Odt) 4 Mg Tab 4 Mg SL Q6HR PRN Reported Zantac (Ranitidine HCl) 150 Mg Tab 150 Mg PO DAILY Tums (Calcium Carbonate (Antacid)) 500 Mg Chew 500 Mg CHEW PRN Metoprolol Tartrate 50 Mg Tab 50 Mg PO BID Synthroid (Levothyroxine Sodium) 88 Mcg Tab 88 Mcg PO DAILY Allergies: Coded Allergies: ciprofloxacin (Verified Allergy, Severe, hives, 11/17/16) haloperidol (Verified Allergy, Severe, THROAT SWELLING, 11/17/16) prochlorperazine (Verified Allergy, Severe, DYSTONIA, 11/17/16) vancomycin (Verified Allergy, Severe, HIVES, 11/17/16) PT STATES SHE HAD REDNESS AND ITCHING AFTER ONE DOSE. WAS GIVEN BENADRYL IV docusate (Verified Allergy, Mild, HEADACHE, 11/17/16) pantoprazole (Verified Adverse Reaction, Severe, Headache, 11/17/16) tramadol (Verified Adverse Reaction, Severe, GI DISTRESS, 11/17/16) Active Ordered Medications Administered Medications Medications (Trade) Dose Ordered Sig/Debora Route PRN Reason Start Time Stop Time Status Last Admin Dose Admin Enoxaparin Sodium (Lovenox Inj) 40 mg Q24H SQ 11/17/16 09:00 11/17/16 09:07 Lactobacillus Acidophilus (Lactinex) 1 tab TID PO 11/17/16 09:00 11/17/16 09:25 Family History Dementia and coronary artery disease Social History No history of alcohol abuse No history of nicotine abuse No history of drug abuse Physical Exam Vital Signs Vital Signs Date Time Temp Pulse Resp B/P (MAP) Pulse Ox O2 Delivery O2 Flow Rate FiO2 11/17/16 09:40 96.2 78 16 144/76 (98) 100 11/17/16 09:34 80 18 126/72 (90) 99 11/17/16 09:22 83 18 117/61 (79) 100 Room Air 11/17/16 07:22 18 11/17/16 06:53 98.1 77 18 112/79 (90) 99 Room Air 11/17/16 06:05 86 16 11/17/16 06:03 98.9 86 16 146/70 (95) 100 11/17/16 06:00 16 100 Room Air Physical Exam GENERAL: NAD, A&Ox3 HEAD: Normocephalic. NECK: Supple, trachea midline. No lymphadenopathy. EYES: No scleral icterus. No injection or drainage. CARDIOVASCULAR: Regular rate and rhythm without murmurs, gallops, or rubs. RESPIRATORY: Breath sounds equal bilaterally. No accessory muscle use. GASTROINTESTINAL: Abdomen soft, non-tender, nondistended. MUSCULOSKELETAL: No cyanosis, or edema. SKIN: Warm and dry. NEURO: No focal neurological deficitis. Laboratory Laboratory Tests Test 11/17/16 06:25 11/17/16 07:20 White Blood Count 19.5 Red Blood Count 3.63 Hemoglobin 9.9 Hematocrit 30.6 Mean Corpuscular Volume 84.2 Mean Corpuscular Hemoglobin 27.3 Mean Corpuscular Hemoglobin Concent 32.5 Red Cell Distribution Width 14.0 Platelet Count 337 Mean Platelet Volume 7.6 Neutrophils (%) (Auto) 85.4 Lymphocytes (%) (Auto) 5.0 Monocytes (%) (Auto) 5.2 Eosinophils (%) (Auto) 1.8 Basophils (%) (Auto) 2.6 Neutrophils # (Auto) 16.6 Lymphocytes # (Auto) 1.0 Monocytes # (Auto) 1.0 Eosinophils # (Auto) 0.4 Basophils # (Auto) 0.5 CBC Comment DIFF FINAL Differential Comment Prothrombin Time 10.4 Prothromb Time International Ratio 0.9 Activated Partial Thromboplast Time 29.8 Blood Urea Nitrogen 33 Creatinine 1.40 Random Glucose 103 Total Protein 8.2 Albumin 3.3 Calcium Level 10.4 Alkaline Phosphatase 150 Aspartate Amino Transf (AST/SGOT) 14 Alanine Aminotransferase (ALT/SGPT) 14 Total Bilirubin 0.4 Sodium Level 137 Potassium Level 4.3 Chloride Level 107 Carbon Dioxide Level 21.7 Anion Gap 8 Estimat Glomerular Filtration Rate 38 Urine Collection Type CLEAN CATCH Urine Color YELLOW Urine Turbidity SLIGHT Urine pH 5.5 Urine Specific [place] 1.023 Urine Protein TRACE Urine Glucose (UA) NEG Urine Ketones NEG Urine Occult Blood MOD Urine Nitrite NEG Urine Bilirubin NEG Urine Leukocyte Esterase MOD Urine RBC 20-24 Urine WBC 100-200 Urine Squamous Epithelial Cells 0-5 Urine Bacteria FEW Urine Yeast with Hyphae MOD Urine Yeast (Budding) FEW Microscopic Urinalysis Comment CULTURE INDICATED Urine Collection Time 07:20 Lactic Acid Level 0.8 Date/Time Source Procedure Growth Status 11/17/16 07:40 Blood Peripheral Aerobic Blood Culture Pending Received 11/17/16 07:40 Blood Peripheral Anaerobic Blood Culture Pending Received 11/17/16 07:20 Urine Clean Catch Urine Culture Pending Received Result Diagram: 11/17/1625 11/17/1625 Imaging Last Impressions Abdomen/Pelvis CT 11/17/1606 Signed Impressions: Service Date/Time: Thursday, November 17, 2016 06:38 - CONCLUSION: 1. Interval placement of double-J left ureteral stent with displacement of the left UV left UPJ stone into the renal pelvis. Moderate hydronephrosis which may reflect residual/resolving calyceal prominence although malfunctioning stent cannot be excluded. 2. Remainder of the exam is unchanged. MD Kortney Herron VTE Risk Assessment Kortney VTE Risk Assessment: Mod/High Risk (score >= 2) Caprini Risk Assessment Model Point Value = 1 Point Value = 2 Point Value = 3 Point Value = 5 Age 41-60 Minor surgery BMI > 25 kg/m2 Swollen legs Varicose veins or History of unexplained or recurrent spontaneous Oral contraceptives or hormone replacement Sepsis (< 1 month) Serious lung disease, including pneumonia (< 1 month) Abnormal pulmonary function Acute myocardial infarction Congestive heart failure (< 1 month) History of inflammatory bowel disease Medical patient at bed rest Age 61-74 Arthroscopic surgery Major open surgery (> 45 min) Laparoscopic surgery (> 45 min) Malignancy Confined to bed (> 72 hours) Immobilizing plaster cast Central venous access Age >= 75 History of VTE Family history of VTE Factor V Leiden Prothrombin [id number] Lupus anticoagulant Anticardiolipin antibodies Elevated serum homocysteine Heparin-induced thrombocytopenia Other congenital or acquired thrombophilia Stroke (< 1 month) Elective arthroplasty Hip, pelvis, or leg fracture Acute spinal cord injury (< 1 month) Prophylaxis Regimen Total Risk Factor Score Risk Level Prophylaxis Regimen 0-1 Low Early ambulation 2 Moderate Order ONE of the following: *Sequential Compression Device (SCD) *Heparin 5000 units SQ BID 3-4 Higher Order ONE of the following medications: *Heparin 5000 units SQ TID *Enoxaparin/Lovenox 40 mg SQ daily (WT < 150 kg, CrCl > 30 mL/min) *Enoxaparin/Lovenox 30 mg SQ daily (WT < 150 kg, CrCl > 10-29 mL/min) *Enoxaparin/Lovenox 30 mg SQ BID (WT < 150 kg, CrCl > 30 mL/min) AND/OR *Sequential Compression Device (SCD) 5 or more Highest Order ONE of the following medications: *Heparin 5000 units SQ TID (Preferred with Epidurals) *Enoxaparin/Lovenox 40 mg SQ daily (WT < 150 kg, CrCl > 30 mL/min) *Enoxaparin/Lovenox 30 mg SQ daily (WT < 150 kg, CrCl > 10-29 mL/min) *Enoxaparin/Lovenox 30 mg SQ BID (WT < 150 kg, CrCl > 30 mL/min) AND *Sequential Compression Device (SCD) Assessment and Plan Problem List: (1) Left flank pain ICD Code: R10.9 - Unspecified abdominal pain (2) Complicated UTI (urinary tract infection) ICD Code: N39.0 - Urinary tract infection, site not specified (3) Urinary tract infection ICD Code: N39.0 - Urinary tract infection Status: Acute Assessment and Plan Assessment and plan 60-year-old female admitted secondary to complicated left urinary tract infection with left flank pain. 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
[2016-11-17] MEDS ORDERED: HYDROmorphone HCL PF 1 MG/ML VIAL IV PUSH PRN (12:00)
[2016-11-17] MEDS ORDERED: oxyCODONE/ACETAMINOPHEN 5 MG/325 MG TAB PO PRN (12:00)
[2016-11-17] MEDS ORDERED: PROPOFOL 200 MG/20 ML AMP IV ONE (12:00)
[2016-11-17] MEDS ORDERED: METOPROLOL TARTRATE 25 MG TAB PO PRN (12:45)
[2016-11-17] MEDS ORDERED: SODIUM CHLORID 0.9% 500 ML IV PRN (12:45)
[2016-11-17] MEDS ORDERED: LACTATED RINGER'S 1000 ML IV PRN (12:45)
[2016-11-17] MEDS ORDERED: POVIDONE IODINE 5% (ANTISEPSIS KIT) 4 APPLICATIONS EACH NARE PRN (12:45)
[2016-11-17] MEDS ORDERED: INSULIN HUMAN REGULAR 1,000 UNITS/10 ML VIAL SQ PRN (12:45)
[2016-11-17] MEDS ORDERED: CHLORHEXIDINE GLUCONATE 2 % 1 PACK (2 CLOTHS) TOPICAL PRN (12:45)
[2016-11-17] MEDS ORDERED: FAMOTIDINE 20 MG/2 ML VIAL ONE (12:53)
[2016-11-17] MEDS ORDERED: MIDAZOLAM HCL 2 MG/2 ML VIAL ONE (12:53)
[2016-11-17] MEDS ORDERED: ONDANSETRON ODT 4 MG TAB SL PRN (13:00)
--- NOTE | 2016-11-17 13:41 | MB ---
cc: HUEY RODRIGUEZ DATE OF CONSULTATION: 11/17/2016 HISTORY OF PRESENT ILLNESS Ms. Choudhary is a pleasant 60-year-old female who has a long history of a poorly functioning left-sided kidney associated with nephrolithiasis. She underwent cystoscopy with stent insertion in the past after findings of an ureteral injury after surgery for diverticulitis. She developed a retroperitoneal hematoma after the stent was placed and then the kidney continued to lose function over time. It appeared that the UPJ and calcification within it and she underwent cystoscopy with left double-J stent insertion one month ago. She presented with left-sided flank pain with associated nausea and dysuria with foul-smelling urine. She has undergone ureteroscopy and I was unable to visualize the stone at that time. CT scan performed in the emergency room demonstrates left-sided hydronephrosis with a calcification located in the mid pole of the kidney measuring 1 cm in size. Her left double-J stent is in good position but there is some associated hydronephrosis of the kidney. PAST MEDICAL HISTORY 1. Diverticulitis. 2. Nephrolithiasis. 3. Depression. 4. Chronic low back pain. 5. Meningitis. PAST SURGICAL HISTORY 1. Exploratory laparotomy for diverticulitis. 2. Robotic-assisted laparoscopic repair of a colovesical fistula. 3. Multiple cystoscopies. 4. Left ureteroscopy. 5. Left double-J stent insertion. 6. Tonsillectomy. 7. Thyroidectomy. 8. Cardiac catheterization. 9. Hysterectomy. 10.Low back surgery with spinal carline placed. 11.Right total knee replacement. MEDICATIONS For medications please refer to the chart. ALLERGIES 1. CIPRO. 2. COMPAZINE. 3. HALDOL. 4. VANCOMYCIN. 5. COLACE. 6. PROTONIX. 7. TRAMADOL. FAMILY HISTORY There is no history of any malignancies. SOCIAL HISTORY She denies smoking, drinking or any drug use. REVIEW OF SYSTEMS She denies fever or chills. She notes nausea without vomiting. She does note night sweats at times. She denies blurred vision. She denies any tinnitus. She denies any sleep apnea or difficulty breathing. She presently denies any chest pain. She does complain of abdominal pain with left-sided flank pain. Denies any abnormal vaginal bleeding. Does note joint pain. Denies any skin lesions or abnormal pigmentation. Denies any bruising or eczema. Denies any abnormal gait. She notes anxiety and depression. PHYSICAL EXAMINATION VITAL SIGNS: Her present vital signs are temperature 98.1, heart rate 90, respiratory rate 16, blood pressure 123/72, 95% on room air. GENERAL: She is a well-developed, well-nourished 60-year-old female in no acute distress. HEENT: Normocephalic, atraumatic. Pupils equal, round and reactive to light. Extraocular movements intact. Oral mucosa is pink and moist. NECK: Supple. Trachea is midline. LUNGS: Breath sounds are bilaterally clear to auscultation. HEART: Regular rate and rhythm. S1, S2. ABDOMEN: Soft. Left-sided abdominal tenderness with left CVA tenderness is noted. : Normal female external genitalia. EXTREMITIES: No clubbing, cyanosis or edema. SKIN: No lesions are noted. No bruising. NEUROLOGIC: Cranial nerves II through XII are intact. PSYCHIATRIC: Generalized mood at present. LABORATORY White count 19.5, hemoglobin 9.9, hematocrit 30.6, platelet count 337, neutrophils 85.4. Sodium 137, potassium 4.3, chloride 107, CO2 21.7, BUN 33, creatinine 1.4, glucose 103. PT 10.4, INR 0.9, PTT 29.8. Urinalysis shows 20-24 red cells and 100-200 white cells. Nitrate is negative. Moderate blood. Moderate leukocyte esterase. IMAGING CT scan shows left double-J stent with displacement of left UVJ stone in the renal pelvis, moderate hydronephrosis, although malfunctioning stent cannot be excluded. The remainder of the study is unchanged. ASSESSMENT This is a 60-year-old female with left-sided hydronephrosis with possible malfunctioning stent with possible urinary tract infection. PLAN/RECOMMENDATIONS Continue IV antibiotics. Continue n.p.o. Will schedule cystoscopy and left double-J stent exchange in the OR today. The risks and benefits were discussed preoperatively and she is willing to proceed. Thank for the consult and allowing me to participate in the care of this patient. Huey BRADFORD /1:07 PM /1:23 PM
[2016-11-17] MEDS ORDERED: IOHEXOL 350 MG/ML 50 ML BTL (for RAD DIAG) ONE (14:37)
--- NOTE | 2016-11-17 20:53 | MP ---
cc: DAVID CAVAZOS DATE OF SURGERY: 11/17/2016 PREOPERATIVE DIAGNOSIS: Left hydronephrosis with left renal calculus and obstructing nonfunctioning left double-J stent. POSTOPERATIVE DIAGNOSIS: Left hydronephrosis with left renal calculus and obstructing nonfunctioning left double-J stent. OPERATION: Cystoscopy, left retrograde study, left double-J stent exchange. SURGEON: David Cavazos MD. ANESTHESIA: General, LMA. FLUIDS: 100 cc broderick. COMPLICATIONS: None. DRAINS: 6 Azerbaijani, 20 cm left double-J stent, and 16 Azerbaijani Naidu catheter. DISPOSITION: The patient tolerated the procedure well, was awoke, and transferred to the Recovery Room in stable condition. INDICATIONS FOR PROCEDURE: Alicia is a 60-year-old female with history of left stent placement due to obstructing UPJ stone. On CT scan the UPJ stone moved into the mid caliceal system with hydronephrosis present. She had left-sided flank pain associated with nausea and vomiting. CT scan on report suggested that the stent was nonfunctioning and obstructed. DESCRIPTION OF PROCEDURE: The patient was brought to the operating room, identified by myself as Alicia Choudhary. She was placed in the dorsolithotomy position, prepped and draped in the usual sterile fashion. She received preprocedure antibiotics and general LMA anesthesia was administered. A 22 Azerbaijani cystoscope was inserted in the bladder, pancystoscopy revealed very cloudy urine with what appeared to be yeast in the urine. The left stent was identified and using the alligator grasper was brought through the urethral meatus. A 0.35 sensor wire was then passed through the stent with a good curl the kidney and the stent was removed. An open-end catheter was then fed over the wire and the wire was removed. A retrograde study was performed showing the left hydronephrosis with what appeared to be debris in the kidney and evidence of stone in the mid pole. The wire was left in position and then a cystoscope was back loaded over the wire. A 6-Azerbaijani 20-cm left double-J stent was then passed into the kidney with a good curl in the kidney and a good curl in the bladder. Bladder was evacuated and a 16-Azerbaijani Naidu was inserted. She tolerated the procedure well and was awoken and transferred to recovery in stable condition. Angel MARTINEZ /1:41 PM /8:38 PM
[2016-11-17] MEDS: METOPROLOL TARTRATE 50 MG TAB PO SCH (22:53)
[2016-11-17] MEDS: OXYBUTYNIN CHLORIDE 5 MG TAB PO SCH (22:53)
[2016-11-17] MEDS: FAMOTIDINE 20 MG TAB PO SCH (22:53)
[2016-11-17] MEDS: oxyCODONE/ACETAMINOPHEN 10 MG/325 MG TAB PO PRN (22:54)
[2016-11-18] VITALS: BP 108/66; PULSE 81; RESP 20; TEMP 96; O2SAT 98
[2016-11-18 04:00] VITALS: BP 104/65; PULSE 74; RESP 20; TEMP 96.3; O2SAT 98
[2016-11-18] MEDS ORDERED: LEVOTHYROXINE SODIUM 88 MCG TAB PO SCH (06:00)
[2016-11-18 06:11] LABS: AUTOMATED NEUTROPHIL # 16.3 TH/MM3 (1.8-7.7); BASOPHIL % 0.1 % (0.0-2.0); EOSINOPHIL % 0.1 % (0.0-4.0); HEMATOCRIT 26.6 % (35.0-46.0); LYMPH % 3.7 % (9.0-44.0); LYMPHOCYTE # 0.6 TH/MM3 (1.0-4.8); MEAN CELL VOLUME 86.9 FL (80.0-100.0); MEAN CORPUSCULAR HEMOGLOBIN 28.2 PG (27.0-34.0); MEAN CORPUSCULAR HGB CONC 32.4 % (32.0-36.0); MONO % 3.1 % (0.0-8.0); PLATELET COUNT 243 TH/MM3 (150-450); RED BLOOD COUNT 3.06 MIL/MM3 (4.00-5.30); RED CELL DISTRIBUTION WIDTH 14.3 % (11.6-17.2); WHITE BLOOD COUNT 17.4 TH/MM3 (4.0-11.0)
[2016-11-18 06:22] LABS: POTASSIUM 5.1 MEQ/L (3.5-5.1)
[2016-11-18] MEDS: oxyCODONE/ACETAMINOPHEN 10 MG/325 MG TAB PO PRN (06:38)
[2016-11-18 06:41] LABS: HEMO FLAGS DIFF FINAL
[2016-11-18 06:48] LABS: BICARBONATE 19.7 MEQ/L (21.0-32.0)
[2016-11-18] MEDS ORDERED: cefTRIAXone INJ 1,000 MG in SODIUM CHLORIDE 0.9% INJ 100 ML IV SCH (07:00)
[2016-11-18 08:00] VITALS: BP 109/56; PULSE 69; RESP 18; TEMP 97.6; O2SAT 92
[2016-11-18] MEDS: SODIUM CHLOR 0.9% 1000 ML INJ 1,000 ML IV SCH (08:45)
[2016-11-18] MEDS: LACTOBACILLUS ACIDOPHILUS TAB PO SCH (08:59)
[2016-11-18] MEDS: ENOXAPARIN SODIUM 40 MG/0.4 ML SYRINGE SQ SCH (08:59)
[2016-11-18] MEDS: OXYBUTYNIN CHLORIDE 5 MG TAB PO SCH (08:59)
[2016-11-18] MEDS: SODIUM CHLORIDE 0.9% FLUSH 10 ML FLUSH IV FLUSH SCH (08:59)
[2016-11-18] MEDS: FAMOTIDINE 20 MG TAB PO SCH (09:00)
[2016-11-18] MEDS: METOPROLOL TARTRATE 50 MG TAB PO SCH (09:00)
[2016-11-18] MEDS ORDERED: FLUCONAZOLE 100 MG TAB PO SCH (09:00)
[2016-11-18] MEDS ORDERED: BACT800T5 PO (10:21)
[2016-11-18] MEDS ORDERED: CEPH-460 PO (10:21)
[2016-11-18] MEDS ORDERED: LACTTAB8 PO (10:21)
[2016-11-18] MEDS ORDERED: PERC7.5T13 PO (10:21)
--- NOTE | 2016-11-18 10:26 | HHI.DS ---
Discharge Summary Admission Date Nov 17, 2016 at 08:20 Discharge Date: Nov 18, 2016 Admitting Diagnosis uti, leukocytosis, ureteral stent (1) Left flank pain ICD Code: R10.9 - Unspecified abdominal pain Diagnosis: Principal (2) Complicated UTI (urinary tract infection) ICD Code: N39.0 - Urinary tract infection, site not specified Diagnosis: Principal (3) Urinary tract infection ICD Code: N39.0 - Urinary tract infection Diagnosis: Principal Status: Acute Procedures Revision of left urinary stent Brief History - From Admission Mrs. Choudhary is a 60-year-old female. She has come into the ER secondary to left flank pain. 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 She has problems with recurrent urinary tract infections and chronic kidney disease of the left kidney. Recently ( approximately 2 weeks ago) she had a stent placed again the left side and today she comes in secondary to pain. She is also found to have a urinary tract infection. Imaging shows possibility of dislodgment and displacement of the stent. No other complaints. Sepsis criteria are not present. CBC/BMP: 11/18/16 0545 11/18/16 0545 Significant Findings Laboratory Tests Test 11/17/16 06:25 11/17/16 07:20 11/18/16 05:45 White Blood Count 19.5 TH/MM3 (4.0-11.0) 17.4 TH/MM3 (4.0-11.0) Red Blood Count 3.63 MIL/MM3 (4.00-5.30) 3.06 MIL/MM3 (4.00-5.30) Hemoglobin 9.9 GM/DL (11.6-15.3) 8.6 GM/DL (11.6-15.3) Hematocrit 30.6 % (35.0-46.0) 26.6 % (35.0-46.0) Neutrophils (%) (Auto) 85.4 % (16.0-70.0) 93.0 % (16.0-70.0) Lymphocytes (%) (Auto) 5.0 % (9.0-44.0) 3.7 % (9.0-44.0) Basophils (%) (Auto) 2.6 % (0.0-2.0) Neutrophils # (Auto) 16.6 TH/MM3 (1.8-7.7) 16.3 TH/MM3 (1.8-7.7) Monocytes # (Auto) 1.0 TH/MM3 (0-0.9) Basophils # (Auto) 0.5 TH/MM3 (0-0.2) Blood Urea Nitrogen 33 MG/DL (7-18) 24 MG/DL (7-18) Creatinine 1.40 MG/DL (0.50-1.00) 1.10 MG/DL (0.50-1.00) Albumin 3.3 GM/DL (3.4-5.0) Calcium Level 10.4 MG/DL (8.5-10.1) Alkaline Phosphatase 150 U/L (45-117) Aspartate Amino Transf (AST/SGOT) 14 U/L (15-37) Estimat Glomerular Filtration Rate 38 ML/MIN (>89) 50 ML/MIN (>89) Urine Occult Blood MOD (NEG) Urine Leukocyte Esterase MOD (NEG) Urine RBC 20-24 /hpf (0-3) Urine WBC 100-200 /hpf (0-5) Urine Bacteria FEW /hpf (NONE) Urine Yeast with Hyphae MOD (NONE) Urine Yeast (Budding) FEW (NONE) Lymphocytes # (Auto) 0.6 TH/MM3 (1.0-4.8) Random Glucose 148 MG/DL (74-106) Chloride Level 112 MEQ/L (98-107) Carbon Dioxide Level 19.7 MEQ/L (21.0-32.0) Hospital Course Mrs. Choudhary is a 60-year-old female. She has a chronic urinary stent on the left side and problems of recurrent urinary tract infections. She was admitted secondary to a complicated UTI with dislodgment of a urinary stent. Yesterday her stent was revised and she's had a decrease in her pain back to her baseline levels. At this point she is feeling better and shows a decrease in her white blood cell count. She requests discharge today. Renal function has also improved compared to admit. Symptoms have improved faster than expected. Medically stable for discharge. She will need double coverage with antibiotics as cultures are not yet resulted. Cultures will be followed after patient is discharged and patient will be contacted if treatment needs to be changed. She is recommended to take both antibiotics, a probiotic, and a when necessary pain treatment. She is also recommended to follow up with urology in one week as an outpatient. Pt Condition on Discharge: Stable Discharge Disposition: Discharge Home Discharge Time: <= 30 minutes Discharge Instructions DIET: Follow Instructions for: As Tolerated, No Restrictions Activities you can perform: Regular-No Restrictions Follow up Referrals: PCP Follow-up - 2 Weeks Urology - 1 Week with Angel Cavazos DO New Medications: Cephalexin (Keflex) 500 Mg Capsule 500 MG PO TID for Infection, #30 CAP 0 Refills Lactobacillus Acidophilus (Lactobacillus Acidophilus) 1 Billion Cell Tab 1 TAB PO TIDAC for Nutritional Supplement, #30 TAB 0 Refills Oxycodone-Acetaminophen (Percocet) 7.5-325 mg Tab 1 TAB PO Q6H PRN for PAIN, #20 TAB 0 Refills Sulfamethoxazole-Trimethoprim (Bactrim DS) 800-160 Mg Tab 1 TAB PO BID for Infection, #20 TAB 0 Refills Continued Medications: Calcium Carbonate (Antacid) (Tums) 500 Mg Chew 500 MG CHEW PRN for HEARTBURN, TAB 0 Refills Levothyroxine (Synthroid) 88 Mcg Tab 88 MCG PO DAILY for Thyroid, #30 TAB 0 Refills Metoprolol Tartrate (Metoprolol Tartrate) 50 Mg Tab 50 MG PO BID, #60 TAB 0 Refills Ondansetron Odt (Zofran Odt) 4 Mg Tab 4 MG SL Q6HR PRN for Nausea/Vomiting, #10 TAB 0 Refills Oxybutynin (Ditropan) 5 Mg Tab 5 MG PO Q12HR for Urinary Symptom Managemen, #60 TAB 2 Refills Ranitidine (Zantac) 150 Mg Tab 150 MG PO DAILY for Reduce Stomach Acid, #30 TAB 0 Refills Ji Segovia MD Nov 18, 2016 10:26
== END 2016-11-18 11:37 | disposition home or self-care (01) ==
LOC: PHED 05:49 → PHEDA 08:20 → PH3A 09:46
PROVIDERS: ADMIT Hospitalist; ATTEND Hospitalist
DX: N13.2 Hydronephrosis with renal and ureteral calculous obstruction (principal); T83.192A Other mechanical complication of indwelling ureteral stent, initial encounter; N18.9 Chronic kidney disease, unspecified; N39.0 Urinary tract infection, site not specified; I10 Essential (primary) hypertension; J44.9 Chronic obstructive pulmonary disease, unspecified
CPT/HCPCS: 00910; 52332; 74176; 76000; 80048; 80053; 81001; 83605; 85025; 85610; 85730; 87040; 87086; 96365; 96366; 96372; 96375; 99285; C1769; C2617; G0378; J0696; J1170; J1650; J2250; J2270; J2405; J3010; J7030; J7120; Q9967

== ENCOUNTER 2016-12-23 17:10 | Emergency (ER) | payer SELFPAY ==
[~2016-12-23] VITALS: Ht 160 cm; Wt 50.2 kg
[~2016-12-23 17:10] MED LIST changes: +CEPH-460 PO; -HYDR-3516 PO; +LACTTAB8 PO; -LOVA40TA PO; -MACR100C2 PO; +PERC7.5T13 PO; +TUMS500C CHEW; +ZANT150T2 PO
[2016-12-23 17:35] VITALS: BP 120/59; PULSE 119; RESP 16; TEMP 98; O2SAT 99
[2016-12-23 18:14] LABS: BLOOD, URINE LARGE (NEG); GLUCOSE,URINE NEG (NEG); KETONE, URINE NEG (NEG); NITRITE,URINE NEG (NEG); PH, URINE 5.5 (5.0-8.5)
[2016-12-23 18:26] LABS: URINE COLOR YELLOW (YELLW/STRAW)
[2016-12-23 18:27] LABS: RBC, URINE 15-19 /hpf (0-3); SQUAMOUS EPITHELIAL CELL URINE 0-5 /hpf (0-5); WBC, URINE 100-200 /hpf (0-5)
[2016-12-23 18:28] LABS: BACTERIA, URINE FEW /hpf; COMMENT (UR) CULTURE INDICATED; CULTURE IF INDICATED CULTURE INDICATED
[2016-12-23] MEDS ORDERED: cefTRIAXone INJ 1,000 MG in SODIUM CHLORIDE 0.9% INJ 100 ML IV ONE (18:45)
[2016-12-23] MEDS ORDERED: MORPHINE SULFATE 4 MG/ML INJ IV PUSH ONE (18:45)
--- NOTE | 2016-12-23 19:06 | PD ---
HPI Chief Complaint: Flank/Kidney Pain Time Seen by Provider: 18:44 Travel History International Travel<30 days: No Contact w/Intl Traveler<30days: No Traveled to known affect area: No History of Present Illness HPI 61 year-old woman with history of chronic left kidney disease, left-sided kidney stone, recent left kidney stent, who presents with worsening pain for the past several days. She is out of her home pain medicines. She denies any fevers. No vomiting. She does state her urine is been darker in color recently. She states she has not been able follow-up with Dr. Cavazos recently because she needs to change primary care physician to get a new referral. History Past Medical History Narrative Medical CAD Hypothyroidism Left kidney disease Menopausal: Yes : 0 Para: 0 Social History Alcohol Use: No Tobacco Use: No Allergies-Medications (Allergen,Severity, Reaction): Coded Allergies: ciprofloxacin (Verified Allergy, Severe, hives, 12/23/16) haloperidol (Verified Allergy, Severe, THROAT SWELLING, 12/23/16) prochlorperazine (Verified Allergy, Severe, DYSTONIA, 12/23/16) vancomycin (Verified Allergy, Severe, HIVES, 12/23/16) PT STATES SHE HAD REDNESS AND ITCHING AFTER ONE DOSE. WAS GIVEN BENADRYL IV docusate (Verified Allergy, Mild, HEADACHE, 12/23/16) pantoprazole (Verified Adverse Reaction, Severe, Headache, 12/23/16) tramadol (Verified Adverse Reaction, Severe, GI DISTRESS, 12/23/16) Reported Meds & Prescriptions Reported Meds & Active Scripts Active Percocet (Oxycodone-Acetaminophen) 7.5-325 mg Tab 1 Tab PO Q6H PRN Keflex (Cephalexin) 500 Mg Capsule 500 Mg PO TID Bactrim DS (Sulfamethoxazole-Trimethoprim) 800-160 Mg Tab 1 Tab PO BID Lactobacillus Acidophilus 1 Billion Cell Tab 1 Tab PO TIDAC Ditropan (Oxybutynin Chloride) 5 Mg Tab 5 Mg PO Q12HR Zofran Odt (Ondansetron Odt) 4 Mg Tab 4 Mg SL Q6HR PRN Reported Zantac (Ranitidine HCl) 150 Mg Tab 150 Mg PO DAILY Tums (Calcium Carbonate (Antacid)) 500 Mg Chew 500 Mg CHEW PRN Metoprolol Tartrate 50 Mg Tab 50 Mg PO BID Synthroid (Levothyroxine Sodium) 88 Mcg Tab 88 Mcg PO DAILY Review of Systems Except as stated in HPI: all other systems reviewed are Neg Physical Exam Narrative GENERAL: Well-appearing 61 year-old woman, no acute distress. SKIN: Focused skin assessment warm/dry. NECK: Trachea midline. No JVD. CARDIOVASCULAR: Regular rate and rhythm. No murmur appreciated. RESPIRATORY: No accessory muscle use. Clear to auscultation. Breath sounds equal bilaterally. GASTROINTESTINAL: Abdomen soft, non-tender, nondistended. Hepatic and splenic margins not palpable. MUSCULOSKELETAL: No obvious deformities. No edema. NEUROLOGICAL: Awake and alert. No obvious cranial nerve deficits. Motor grossly within normal limits. Normal speech. PSYCHIATRIC: Appropriate mood and affect; insight and judgment normal. Data Data Last Documented VS Vital Signs Date Time Temp Pulse Resp B/P (MAP) Pulse Ox O2 Delivery O2 Flow Rate FiO2 12/23/16 19:19 103 16 99 Room Air 12/23/16 17:35 98.0 120/59 (79) Orders Orders Urinalysis - C+S If Indicated (12/23/16 17:46) Urine Culture (12/23/16 18:00) Morphine Inj (Morphine Inj) (12/23/16 18:45) Complete Blood Count With Diff (12/23/16 18:36) Basic Metabolic Panel (Bmp) (12/23/16 18:36) Iv Access Insert/Monitor (12/23/16 18:36) Ceftriaxone Inj (Rocephin Inj) (12/23/16 18:45) Labs Laboratory Tests Test 12/23/16 18:00 12/23/16 19:03 Urine Color YELLOW Urine Turbidity CLOUDY Urine pH 5.5 Urine Specific [place] 1.023 Urine Protein 30 mg/dL Urine Glucose (UA) NEG mg/dL Urine Ketones NEG mg/dL Urine Occult Blood LARGE Urine Nitrite NEG Urine Bilirubin NEG Urine Leukocyte Esterase MOD Urine RBC 15-19 /hpf Urine WBC 100-200 /hpf Urine WBC Clumps FEW Urine Squamous Epithelial Cells 0-5 /hpf Urine Bacteria FEW /hpf Urine Yeast with Hyphae MOD Urine Yeast (Budding) FEW Microscopic Urinalysis Comment CULTURE INDICATED White Blood Count 7.7 TH/MM3 Red Blood Count 3.49 MIL/MM3 Hemoglobin 9.6 GM/DL Hematocrit 29.6 % Mean Corpuscular Volume 84.7 FL Mean Corpuscular Hemoglobin 27.5 PG Mean Corpuscular Hemoglobin Concent 32.4 % Red Cell Distribution Width 14.0 % Platelet Count 255 TH/MM3 Mean Platelet Volume 7.6 FL Neutrophils (%) (Auto) 74.1 % Lymphocytes (%) (Auto) 15.8 % Monocytes (%) (Auto) 8.1 % Eosinophils (%) (Auto) 1.4 % Basophils (%) (Auto) 0.6 % Neutrophils # (Auto) 5.8 TH/MM3 Lymphocytes # (Auto) 1.2 TH/MM3 Monocytes # (Auto) 0.6 TH/MM3 Eosinophils # (Auto) 0.1 TH/MM3 Basophils # (Auto) 0.0 TH/MM3 CBC Comment DIFF FINAL Differential Comment Blood Urea Nitrogen 31 MG/DL Creatinine 1.20 MG/DL Random Glucose 111 MG/DL Calcium Level 10.0 MG/DL Sodium Level 142 MEQ/L Potassium Level 3.8 MEQ/L Chloride Level 109 MEQ/L Carbon Dioxide Level 25.4 MEQ/L Anion Gap 8 MEQ/L Estimat Glomerular Filtration Rate 46 ML/MIN [facility] Medical Decision Making Medical Screen Exam Complete: Yes Emergency Medical Condition: Yes Differential Diagnosis Chronic left kidney pain, stent, UTI, other Narrative Course Medical decision making 61 year-old woman with what appears to be subacute ongoing left flank pain related to stent. Urine shows blood and white difficult to interpret due to the presence of the stent. Previous culture showed what appears to be gram- positive tasneem. We'll check labs, UA, reassess. Diagnosis Primary Impression: Complicated UTI (urinary tract infection) Additional Instructions: You need to follow-up with a single provider for prescriptions for your chronic pain medicines. Return to the emergency department for any new or worsening symptoms. Follow-up the urologist at the first available appointment. Med/Other Pt SpecificInfo: Prescription(s) given Scripts Sulfamethoxazole-Trimethoprim (Bactrim DS) 800-160 Mg Tab 1 TAB PO BID for Infection, #20 TAB 0 Refills Prov: Steve Page MD 12/23/16 Disposition: 01 DISCHARGE HOME Condition: Stable Steve Page MD Dec 23, 2016 19:06
[2016-12-23 19:08] LABS: AUTOMATED NEUTROPHIL # 5.8 TH/MM3 (1.8-7.7); BASOPHIL % 0.6 % (0.0-2.0); EOSINOPHIL # 0.1 TH/MM3 (0-0.4); EOSINOPHIL % 1.4 % (0.0-4.0); HEMATOCRIT 29.6 % (35.0-46.0); HEMO FLAGS DIFF FINAL; LYMPH % 15.8 % (9.0-44.0); LYMPHOCYTE # 1.2 TH/MM3 (1.0-4.8); MEAN CELL VOLUME 84.7 FL (80.0-100.0); MEAN CORPUSCULAR HEMOGLOBIN 27.5 PG (27.0-34.0); MEAN CORPUSCULAR HGB CONC 32.4 % (32.0-36.0); MONO % 8.1 % (0.0-8.0); NEUT % 74.1 % (16.0-70.0); PLATELET COUNT 255 TH/MM3 (150-450); RED BLOOD COUNT 3.49 MIL/MM3 (4.00-5.30); WHITE BLOOD COUNT 7.7 TH/MM3 (4.0-11.0)
[2016-12-23 19:19] VITALS: PULSE 103; RESP 16; O2SAT 99
[2016-12-23 19:20] LABS: POTASSIUM 3.8 MEQ/L (3.5-5.1)
[2016-12-23 19:23] LABS: BICARBONATE 25.4 MEQ/L (21.0-32.0)
[2016-12-23] MEDS ORDERED: BACT800T5 PO (19:33)
[2016-12-23 19:50] VITALS: PULSE 89; RESP 16; O2SAT 99
== END 2016-12-23 20:00 | disposition home or self-care (01) ==
LOC: PHED 17:10
DX: N39.0 Urinary tract infection, site not specified (principal); I25.10 Atherosclerotic heart disease of native coronary artery without angina pectoris; E03.9 Hypothyroidism, unspecified
CPT/HCPCS: 80048; 81001; 85025; 87086; 96365; 96375; 99284; J0696; J2270

== ENCOUNTER → 2016-12-30 | Outpatient (CLI) | payer OTHER ==
[~2016-12-30] MED LIST changes: -CEPH-460 PO; -LACTTAB8 PO
--- NOTE | 2016-12-30 15:20 | RADRPT ---
EXAM DATE/TIME: 12/30/2016 13:37 [facility] COMPARISON: CT ABDOMEN & PELVIS W/O CONTRAST, November 17, 2016, 6:38. INDICATIONS : Left flank pain, evaluate renal stone ORAL CONTRAST: No oral contrast ingested. RADIATION DOSE: 6.91 CTDIvol (mGy) MEDICAL HISTORY : Renal calculi. SURGICAL HISTORY : Ureteral stent ENCOUNTER: Subsequent ACUITY: 4 - 6 months PAIN SCALE: 5/10 LOCATION: Left flank TECHNIQUE: Volumetric scanning of the abdomen and pelvis was performed. Using automated exposure control and ad justment of the mA and/or kV according to patient size, radiation dose was kept as low as reasonably achievable to obtain optimal diagnostic quality images. DICOM format image data is available electro nically for review and comparison. FINDINGS: LOWER LUNGS: The visualized lower lungs are clear. LIVER: Homogeneous density without lesion. There is no dilation of the biliary tree. No calcified gallston es. SPLEEN: Normal size without lesion. PANCREAS: Within normal limits. KIDNEYS: Again seen is a double J stent on the left. The proximal Rome is within the upper pole with the dista l Rome just into the urinary bladder lumen. There is a rim calcified stone involving the lower pole m easuring 9 x 9 x 7 mm. This is unchanged. No stone fragment is seen along the course of the double-J stent. No hydronephrosis or hydroureter. The right kidney is unremarkable. ADRENAL GLANDS: Within normal limits. VASCULAR: There is no aortic aneurysm. BOWEL/MESENTERY: The stomach, small bowel, and colon demonstrate no acute abnormality. There is no free intraperitone al air or fluid. ABDOMINAL WALL: There is a tiny ventral hernia containing omental fat cephalad to the umbilicus. RETROPERITONEUM: There is no lymphadenopathy. BLADDER: No wall thickening or mass. REPRODUCTIVE: Within normal limits. INGUINAL: There is no lymphadenopathy or hernia. MUSCULOSKELETAL: Posterior fixation hardware is seen involving L4, L5, and S1. CONCLUSION: 1. 9 x 9 x 7 mm left lower pole renal stone. Double-J stent is in good position although the anterior margin of the stent is just within the urinary bladder lumen. No hydronephrosis or hydroureter seen. 2. Postsurgical changes involving the lumbar spine. 3. Tiny ventral hernia containing omental fat. Dirk Keating Jr., MD on December 30, 2016 at 15:12 Board Certified Radiologist. This report was verified electronically.
== END ==
LOC: HRAD 12:58
PROVIDERS: ATTEND Family Medicine
DX: N20.1 Calculus of ureter (principal)
CPT/HCPCS: 74176

== ENCOUNTER → 2017-01-19 | Outpatient (CLI) | payer MEDICARE, OTHER ==
[~2017-01-19] MED LIST changes: +METR-1 PO; -OXYB5TAB10 PO; +OXYB5TAB8 PO; +PERC10TA27 PO; +SIMELIQ
[2017-01-19 09:36] LABS: AUTOMATED NEUTROPHIL # 5.5 TH/MM3 (1.8-7.7); BASOPHIL # 0.1 TH/MM3 (0-0.2); BASOPHIL % 0.6 % (0.0-2.0); EOSINOPHIL # 0.3 TH/MM3 (0-0.4); EOSINOPHIL % 3.5 % (0.0-4.0); HEMATOCRIT 30.4 % (35.0-46.0); HEMO FLAGS DIFF FINAL; LYMPH % 17.7 % (9.0-44.0); LYMPHOCYTE # 1.4 TH/MM3 (1.0-4.8); MEAN CELL VOLUME 86.7 FL (80.0-100.0); MEAN CORPUSCULAR HEMOGLOBIN 28.8 PG (27.0-34.0); MEAN CORPUSCULAR HGB CONC 33.2 % (32.0-36.0); MONO % 8.8 % (0.0-8.0); NEUT % 69.4 % (16.0-70.0); PLATELET COUNT 206 TH/MM3 (150-450); RED CELL DISTRIBUTION WIDTH 14.6 % (11.6-17.2)
[2017-01-19 09:47] LABS: APTT (PATIENT) 25.3 SEC (24.3-30.1); INTERNATIONAL NORMALIZED RATIO 0.9 RATIO; PROTHROMBIN TIME - PATIENT 10.3 SEC (9.8-11.6)
[2017-01-19 10:03] LABS: ANION GAP 7 MEQ/L (5-15); AST (GOT) 19 U/L (15-37); BICARBONATE 25.5 MEQ/L (21.0-32.0); BLOOD UREA NITROGEN 47 MG/DL (7-18); CHLORIDE 110 MEQ/L (98-107); GLOMERULAR FILTRATION RATE 35 ML/MIN (>89); GLUCOSE,FASTING 94 MG/DL (74-99); POTASSIUM 4.3 MEQ/L (3.5-5.1); SODIUM (NA) 142 MEQ/L (136-145)
[2017-01-19 10:04] LABS: ALT (GPT) 16 U/L (10-53)
[2017-01-19 10:06] LABS: ALKALINE PHOSPHATASE 121 U/L (45-117); TOTAL BILIRUBIN ADULT 0.3 MG/DL (0.2-1.0)
== END ==
LOC: CPRE 08:43
PROVIDERS: ATTEND Urology
DX: Z01.812 Encounter for preprocedural laboratory examination (principal); N28.9 Disorder of kidney and ureter, unspecified
CPT/HCPCS: 36415; 80053; 85025; 85610; 85730

== ENCOUNTER 2017-01-26 05:31 | Inpatient (IN) | payer MEDICARE, MEDICAID ==
[~2017-01-26] VITALS: Ht 152.4 cm; Wt 50.0 kg
[~2017-01-26 05:31] MED LIST changes: -BACT800T5 PO; -METR-1 PO; -PERC10TA27 PO; -SIMELIQ; -TUMS500C CHEW
[2017-01-26] MEDS ORDERED: POVIDONE IODINE 5% (ANTISEPSIS KIT) 4 APPLICATIONS EACH NARE PRN (06:00)
[2017-01-26] MEDS ORDERED: METOPROLOL TARTRATE 25 MG TAB PO PRN (06:00)
[2017-01-26] MEDS ORDERED: CHLORHEXIDINE GLUCONATE 2 % 1 PACK (2 CLOTHS) TOPICAL PRN (06:00)
[2017-01-26] MEDS ORDERED: INSULIN HUMAN REGULAR 1,000 UNITS/10 ML VIAL SQ PRN (06:00)
[2017-01-26] MEDS ORDERED: SODIUM CHLORID 0.9% 500 ML IV PRN (06:00)
[2017-01-26] MEDS ORDERED: ceFAZolin 1,000 MG/NS 100 ML IV SCH ×2 (06:00)
[2017-01-26] MEDS ORDERED: LACTATED RINGER'S 1000 ML IV PRN (06:00)
[2017-01-26] MEDS ORDERED: SIMELIQ (06:05)
[2017-01-26] MEDS ORDERED: BUPIVACAINE/EPINEPHRINE 0.5% 50 ML VIAL ONE (07:43)
[2017-01-26] MEDS ORDERED: BUPIVACAINE HCL PF 0.5% 30 ML VIAL ONE (07:43)
[2017-01-26] MEDS ORDERED: MANNITOL INJ 50 ML ONE (07:44)
[2017-01-26] MEDS ORDERED: ACETAMINOPHEN 1000 MG/100 ML 100 ML IV ONE (07:48)
[2017-01-26] MEDS ORDERED: SUGAMMADEX SODIUM 200 MG/2 ML VIAL IV PUSH ONE ×2 (08:12)
[2017-01-26] MEDS ORDERED: HYDROmorphone HCL PF 2 MG/ML VIAL ONE (08:13)
[2017-01-26] MEDS ORDERED: CISATRACURIUM BESYLATE 20 MG/10 ML VIAL ONE (08:15)
[2017-01-26] MEDS ORDERED: BUPIVACAINE LIPOSOME PF 1.3% 20 ML VIAL ONE (08:35)
[2017-01-26] MEDS ORDERED: PROPOFOL 200 MG/20 ML AMP IV ONE (12:00)
[2017-01-26] MEDS ORDERED: ONDANSETRON HCL 4 MG/2 ML VIAL IV PUSH ONE (12:00)
[2017-01-26] MEDS ORDERED: MORPHINE SULFATE 4 MG/ML INJ IV ONE (12:00)
[2017-01-26] MEDS ORDERED: ceFAZolin INJ 1,000 MG VIAL IV PUSH ONE (12:00)
[2017-01-26] MEDS ORDERED: PHENYLEPH/NS 1000 MCG/10 ML SYR IV ONE (12:00)
[2017-01-26] MEDS ORDERED: LIDOCAINE HCL 1% PF 5 ML SYRINGE OTHER ONE (12:00)
[2017-01-26] MEDS ORDERED: DEXAMETHASONE SOD PHOS 4 MG/ML VIAL IV ONE (12:00)
[2017-01-26] MEDS ORDERED: ePHEDrine/NS 25 MG/5 ML SYR IV ONE (12:00)
[2017-01-26] MEDS ORDERED: MIDAZOLAM HCL 2 MG/2 ML VIAL IV ONE (12:00)
[2017-01-26] MEDS ORDERED: ROCURONIUM INJ 50 MG/5 ML SYRINGE IV PUSH ONE (12:00)
[2017-01-26] MEDS ORDERED: SODIUM CHLORIDE 0.9% 20 ML VIAL IV ONE (12:00)
[2017-01-26] MEDS ORDERED: NORMOSOL R INJ 2,000 ML IV ONE (12:00)
[2017-01-26] MEDS ORDERED: ceFAZolin INJ 1,000 MG VIAL IV ONE (12:48)
[2017-01-26] MEDS ORDERED: ACETAMINOPHEN 650 MG/20.3 ML UDC PO PRN (13:45)
[2017-01-26] MEDS ORDERED: DO NOT ADM ANY ANTICOAGULANT DRUGS PRN (13:56)
[2017-01-26] MEDS: LACTATED RINGER'S 1000 ML INJ 1,000 ML IV SCH (13:57)
--- NOTE | 2017-01-26 14:04 | PD.OP ---
Operative Report Date of Surgery: Jan 26, 2017 Preoperative Diagnosis: Nonfunctioning left kidney with retained left ureteral stent and left kidney stone Postoperative Diagnosis: Same Procedure: Flexible cystoscopy with left double-J stent removal followed by left hand- assisted laparoscopic nephrectomy Anesthesia: BREE Surgeon: Angel Cavazos Motor Pool Clerk(s): Dr. Chery Resident Surgeon: None Operation and Findings: 59-year-old female with long history of a poorly functioning left kidney with recurrent stone disease and pyelonephritis. In the past the patient had diverticulitis and had a left ureteral injury and a colo-vesicle fistula. This was repaired in the past. She had a recent left renal stone causing obstruction and pyelonephritis. Patient had a renal scan demonstrating 25% function of her left kidney and due to her ongoing pain with recurrent infection the patient elected to undergo left nephrectomy. Risk and benefits were discussed including bleeding, infection, extra organ injury, and she is willing to proceed. Patient was identified by myself as Alicia Choudhary. She is placed on the operating room table in the supine position, prepped and draped in usual sterile fashion, received preprocedure antibiotics and general endotracheal tube anesthesia was administered. She was initially placed with her legs in the frog-leg position and then flexible cystoscopy was performed removing her left ureteral stent without difficulty. She was then placed in the left lateral recumbent position and reprepped and draped in usual sterile fashion. A 15 blade was used to make the opening incision from below the xiphoid process to above the umbilicus. Scar present Camper's fascia were then entered and then the midline was identified. This was incised using the Bovie cautery. The peritoneum was then entered and then a hand GelPort was then placed. The camera was inserted through the GelPort and then 2 small incisions were made up on the lateral left part of the abdomen to place the 10 mm ports. 2 ports were placed without difficulty under direct vision. Using the Harmonic scalpel the lateral attachments were taken down. Multiple adhesions were identified throughout the abdomen. This made dissection somewhat difficult. The entire kidney was stuck down and I was unable to manipulate it easily with my left hand in the abdomen. The inferior attachments were then removed as well as the medial attachments. The gonadal vein was identified and it was cut and cauterized with the Harmonic scalpel. The left renal vein was identified and using the right angle clamp the vein was dissected away from its inferior and superior attachments. Once that was done, the Ethicon stapler device was then used to staple the left renal vein. The underlying left renal artery was identified and using the hook electrode it was dissected out from its surrounding fascia and attachments. The Ethicon stapler was then used to staple the left renal artery. Superiorly the attachments were taken down also with the Ethicon stapler and the Harmonic scalpel. The left adrenal gland was not visualized. The kidney specimen was then removed and hemostasis was checked for. Hemostasis was obtained and Surgicel with Ethicon Snow was placed. Stasis was again checked for with lowering the pressure in the abdomen and no further bleeding was identified. A 15 [place] Island[place] Augustine drain was then placed through one of the ports and left in good position near the renal bed. The abdominal incision was closed with a #1 looped PDS. The space was closed with a 2-0 Vicryl suture and and scotty were used to close the remaining wound. The other port site was closed with scotty after a 2-0 Vicryl suture was used to close the port site. A Naidu catheter was inserted at the beginning of this procedure. She remained stable throughout the entire case and blood loss was 250 cc. She was awoken next waited and transferred to remove in stable condition. Angel Cavazos DO Jan 26, 2017 14:04
[2017-01-26] MEDS ORDERED: HYDROmorphone HCL PCA 6 MG/30 ML IV ONE (14:36)
[2017-01-26] MEDS ORDERED: *HYDROmorphone PF 1 MG VIAL PERIprocedural Use ONLY ONE (14:41)
--- NOTE | 2017-01-26 15:00 | RADRPT ---
EXAM DATE/TIME: 01/26/2017 14:35 [facility] COMPARISON: CHEST SINGLE AP, October 19, 2016, 1:54. INDICATIONS : Central line placement. MEDICAL HISTORY : Renal calculi. Carcinoma, tonsillar. Chronic obstructive pulmonary disease. SURGICAL HISTORY : Colon resection. Hysterectomy. ureteral stent ENCOUNTER: Initial ACUITY: 1 day PAIN SCORE: Non-responsive. LOCATION: Bilateral chest FINDINGS: Portable AP view of the chest demonstrates a normal-sized cardiac silhouette. A left subclavian centr al line distal tip is in the superior vena cava. There is extensive left chest wall and supraclavicul ar subcutaneous emphysema with mild right chest wall soft tissue air as well. No pneumothorax is iden tified. There is no pleural effusion. Mild atelectasis is present at the lung bases. CONCLUSION: 1. Left subclavian central line distal tip is in the SVC. 2. Extensive chest wall and supraclavicular subcutaneous emphysema from uncertain etiology. No pneumo thorax is identified. Fish Gage MD on January 26, 2017 at 14:57 Board Certified Radiologist. This report was verified electronically.
[2017-01-26] MEDS ORDERED: diphenhydrAMINE HCL 50 MG/ML VIAL IV PUSH PRN (15:15)
[2017-01-26] MEDS ORDERED: NALOXONE HCL 0.4 MG/ML AMP IV PUSH PRN (15:15)
[2017-01-26] MEDS: HYDROmorphone HCL PCA 6 MG/30 ML IV SCH (15:46)
[2017-01-26 16:00] VITALS: BP 118/64; PULSE 97; RESP 20; TEMP 98.4; O2SAT 100
[2017-01-26 20:00] VITALS: BP 119/56; PULSE 95; RESP 17; TEMP 97.8; O2SAT 100
[2017-01-26] MEDS: METOPROLOL TARTRATE 50 MG TAB PO SCH (21:16)
[2017-01-26] MEDS: PCA - TOTAL MG DILAUDID DELIVERED PER SHIFT SCH (21:17)
[2017-01-26 21:35] LABS: HEMATOCRIT 23.3 % (35.0-46.0); MEAN CELL VOLUME 85.7 FL (80.0-100.0); MEAN CORPUSCULAR HEMOGLOBIN 27.7 PG (27.0-34.0); MEAN CORPUSCULAR HGB CONC 32.4 % (32.0-36.0); PLATELET COUNT 189 TH/MM3 (150-450); RED BLOOD COUNT 2.72 MIL/MM3 (4.00-5.30); RED CELL DISTRIBUTION WIDTH 14.2 % (11.6-17.2); REVIEW FLAG FINAL; WHITE BLOOD COUNT 12.6 TH/MM3 (4.0-11.0)
[2017-01-26 21:53] LABS: BICARBONATE 24.6 MEQ/L (21.0-32.0); POTASSIUM 3.4 MEQ/L (3.5-5.1)
[2017-01-27] VITALS (12 sets, daily range): BP systolic 108–149; BP diastolic 58–77; PULSE 76–107; RESP 16–18; TEMP 97–100; O2SAT 94–100
[2017-01-27] MEDS: ONDANSETRON HCL 4 MG/2 ML VIAL IV PUSH PRN ×2 (00:01→08:59)
[2017-01-27] MEDS: LACTATED RINGER'S 1000 ML INJ 1,000 ML IV SCH ×3 (02:45→21:40)
[2017-01-27 05:35] LABS: AUTOMATED NEUTROPHIL # 8.6 TH/MM3 (1.8-7.7); BASOPHIL % 0.3 % (0.0-2.0); HEMATOCRIT 26.2 % (35.0-46.0); HEMO FLAGS DIFF FINAL; LYMPH % 9.8 % (9.0-44.0); LYMPHOCYTE # 1.1 TH/MM3 (1.0-4.8); MEAN CELL VOLUME 85.9 FL (80.0-100.0); MEAN CORPUSCULAR HEMOGLOBIN 28.7 PG (27.0-34.0); MEAN CORPUSCULAR HGB CONC 33.5 % (32.0-36.0); MONO % 11.6 % (0.0-8.0); NEUT % 78.3 % (16.0-70.0); PLATELET COUNT 192 TH/MM3 (150-450); RED BLOOD COUNT 3.05 MIL/MM3 (4.00-5.30); RED CELL DISTRIBUTION WIDTH 14.3 % (11.6-17.2)
[2017-01-27] MEDS: LEVOTHYROXINE SODIUM 88 MCG TAB PO SCH (05:48)
[2017-01-27 05:57] LABS: POTASSIUM 3.6 MEQ/L (3.5-5.1)
[2017-01-27] MEDS: PCA - TOTAL MG DILAUDID DELIVERED PER SHIFT SCH ×3 (06:40→21:40)
[2017-01-27] MEDS: FAMOTIDINE 20 MG TAB PO SCH (08:54)
[2017-01-27] MEDS: METOPROLOL TARTRATE 50 MG TAB PO SCH ×2 (08:54→21:40)
--- NOTE | 2017-01-27 12:10 | HHI.PR ---
Subjective Patient symptoms today Pt seen and examined. c/o incisional pain. Received 1 unit PRBC's last PM. Hgb now at 8.8 Objective Vital Signs Vital Signs Date Time Temp Pulse Resp B/P (MAP) Pulse Ox O2 Delivery O2 Flow Rate FiO2 01/27/17 08:53 99 Nasal Cannula 2.00 01/27/17 08:00 97.0 91 17 117/69 (85) 98 01/27/17 06:40 18 01/27/17 04:00 97.5 89 17 138/60 (86) 100 01/27/17 03:15 98.0 83 16 126/67 (86) 99 01/27/17 00:56 98.4 84 16 140/58 (85) 01/27/17 00:10 97.1 88 17 108/64 99 01/27/17 00:00 97.1 76 17 108/64 (79) 100 01/26/17 21:17 14 01/26/17 20:00 97.8 95 17 119/56 (77) 100 01/26/17 16:00 97.7 92 16 120/69 (86) 100 Nasal Cannula 2 01/26/17 16:00 98.4 97 20 118/64 (82) 100 01/26/17 15:46 20 01/26/17 15:45 91 16 125/71 (89) 100 Nasal Cannula 2 01/26/17 15:30 86 16 122/65 (84) 100 Nasal Cannula 2 01/26/17 15:15 86 16 124/65 (84) 100 Nasal Cannula 2 01/26/17 15:00 87 16 119/67 (84) 100 Nasal Cannula 2 01/26/17 14:45 89 16 123/70 (87) 100 Nasal Cannula 2 01/26/17 14:30 87 20 120/65 (83) 100 Nasal Cannula 2 01/26/17 14:15 88 20 119/65 (83) 100 Nasal Cannula 2 01/26/17 13:57 97.5 96 20 117/60 (79) 96 Nasal Cannula 2 Intake & Output 01/27/17 01/27/17 07:00 19:00 Intake Total 1943 ml Output Total 400 ml Balance 1543 ml Intake Oral 240 ml IV Total 1403 ml Packed Cells 300 ml Output Urine Total 400 ml Drainage Total 0 ml Result Diagram: 01/27/17 0510 01/27/17 0510 Objective Remarks Abd: soft,nd, incisional tenderness Naidu with clear urine Dressing intact Medications and IVs Current Medications Medications (Trade) Dose Ordered Sig/Debora Route Start Time Stop Time Status Last Admin (Lopressor) 25 mg ENGAGEMENT DIRECTOR PRN PO 01/26/17 06:00 01/29/17 05:59 (Betadine 5% Antisepsis Kit) 1 applic ENGAGEMENT DIRECTOR PRN EACH NARE 01/26/17 06:00 01/29/17 05:59 01/26/17 06:30 (Chlorhexidine 2% Cloth) 3 pack ENGAGEMENT DIRECTOR PRN TOPICAL 01/26/17 06:00 01/29/17 05:59 01/26/17 05:40 (NovoLIN R INJ) See Protocol Table ... ENGAGEMENT DIRECTOR PRN SQ 01/26/17 06:00 01/29/17 05:59 Lactated Ringer's 1,000 ml @ 100 mls/hr Q10H IV 01/26/17 13:45 01/27/17 02:45 (Zofran Inj) 4 mg Q6HR PRN IV PUSH 01/26/17 13:45 01/27/17 08:59 (Tylenol 650 Mg/ 20 ml Liq) 650 mg Q6H PRN PO 01/26/17 13:45 (Synthroid) 88 mcg DAILY@0600 PO 01/27/17 06:00 01/27/17 05:48 (Lopressor) 50 mg Q12HR PO 01/26/17 21:00 01/27/17 08:54 (Pepcid) 20 mg DAILY PO 01/27/17 09:00 01/27/17 08:54 (Percocet 10-325 Mg) 1 tab Q6H PRN PO 01/26/17 13:45 Miscellaneous Information ALL NURSING DEPARTME... UNSCH PRN .XX 01/26/17 13:56 01/27/17 13:55 (Dilaudid STROBOROMA OPERATOR Inj) 6 mg UNSCH IV 01/26/17 15:15 01/26/17 15:46 STROBOROMA OPERATOR Dosage Infused (Pha) 1 Q8HR .XX 01/26/17 22:00 01/27/17 06:40 (Narcan Inj) 0.4 mg UNSCH PRN IV PUSH 11/14/17 15:15 (Benadryl Inj) 25 mg Q6H PRN IV PUSH 01/26/17 15:15 Assessment and Plan Assessment and Plan Stable s/p left radical nephrectomy OOB/Ambulation PT consult Pain controlled. Angel Cavazos DO Jan 27, 2017 12:10
[2017-01-27] MEDS: HYDROmorphone HCL PCA 6 MG/30 ML IV SCH (13:01)
[2017-01-28] VITALS (9 sets, daily range): BP systolic 118–159; BP diastolic 65–79; PULSE 91–121; RESP 16–19; TEMP 96.4–100.6; O2SAT 90–98
[2017-01-28] MEDS: LEVOTHYROXINE SODIUM 88 MCG TAB PO SCH (05:54)
[2017-01-28] MEDS: LACTATED RINGER'S 1000 ML INJ 1,000 ML IV SCH ×2 (05:55→18:18)
[2017-01-28] MEDS: PCA - TOTAL MG DILAUDID DELIVERED PER SHIFT SCH ×3 (06:00→21:00)
[2017-01-28 06:55] LABS: HEMATOCRIT 24.9 % (35.0-46.0); MEAN CELL VOLUME 86.1 FL (80.0-100.0); MEAN CORPUSCULAR HEMOGLOBIN 28.3 PG (27.0-34.0); MEAN CORPUSCULAR HGB CONC 32.9 % (32.0-36.0); PLATELET COUNT 181 TH/MM3 (150-450); RED CELL DISTRIBUTION WIDTH 14.7 % (11.6-17.2); REVIEW FLAG FINAL; WHITE BLOOD COUNT 14.4 TH/MM3 (4.0-11.0)
[2017-01-28 07:33] LABS: BICARBONATE 24.7 MEQ/L (21.0-32.0); POTASSIUM 3.6 MEQ/L (3.5-5.1)
--- NOTE | 2017-01-28 08:40 | HHI.PR ---
Subjective Patient symptoms today Pt seen and examined. Feeling better this AM. Pain controlled. Objective Vital Signs Vital Signs Date Time Temp Pulse Resp B/P (MAP) Pulse Ox O2 Delivery O2 Flow Rate FiO2 01/28/17 07:40 98.0 97 18 133/74 (93) 97 01/28/17 06:00 18 01/28/17 06:00 18 01/28/17 04:00 98.7 104 18 137/79 (98) 93 01/28/17 00:00 99.5 109 17 118/73 (88) 91 01/27/17 21:40 18 01/27/17 21:37 18 01/27/17 20:00 21 01/27/17 20:00 100.0 107 17 130/74 (92) 94 01/27/17 16:00 99.4 95 17 134/77 (96) 98 01/27/17 14:00 18 01/27/17 13:31 17 01/27/17 13:01 18 01/27/17 12:00 97.7 99 17 149/72 (97) 100 01/27/17 08:53 99 Nasal Cannula 2.00 Intake & Output 01/28/17 01/28/17 07:00 19:00 Intake Total 2652 ml Output Total 600 ml Balance 2052 ml Intake Oral 240 ml IV Total 2412 ml Output Urine Total 600 ml Drainage Total 0 ml Result Diagram: 01/28/17 0600 01/28/17 0600 Objective Remarks Abd: soft,nd, incisional tenderness Naidu with clear urine Dressing intact 01/28 Abd: soft,nd, incisional tenderness Naidu with clear urine Dressing intact Medications and IVs Current Medications Medications (Trade) Dose Ordered Sig/Debora Route Start Time Stop Time Status Last Admin (Lopressor) 25 mg ENOLOGIST PRN PO 01/26/17 06:00 01/29/17 05:59 (Betadine 5% Antisepsis Kit) 1 applic ENOLOGIST PRN EACH NARE 01/26/17 06:00 01/29/17 05:59 01/26/17 06:30 (Chlorhexidine 2% Cloth) 3 pack ENOLOGIST PRN TOPICAL 01/26/17 06:00 01/29/17 05:59 01/26/17 05:40 (NovoLIN R INJ) See Protocol Table ... ENOLOGIST PRN SQ 01/26/17 06:00 01/29/17 05:59 Lactated Ringer's 1,000 ml @ 100 mls/hr Q10H IV 01/26/17 13:45 01/28/17 05:55 (Zofran Inj) 4 mg Q6HR PRN IV PUSH 01/26/17 13:45 01/27/17 08:59 (Tylenol 650 Mg/ 20 ml Liq) 650 mg Q6H PRN PO 01/26/17 13:45 (Synthroid) 88 mcg DAILY@0600 PO 01/27/17 06:00 01/28/17 05:54 (Lopressor) 50 mg Q12HR PO 01/26/17 21:00 01/27/17 21:40 (Pepcid) 20 mg DAILY PO 01/27/17 09:00 01/27/17 08:54 (Percocet 10-325 Mg) 1 tab Q6H PRN PO 01/26/17 13:45 (Dilaudid FIGURE SKATER Inj) 6 mg UNSCH IV 01/26/17 15:15 01/27/17 13:01 FIGURE SKATER Dosage Infused (Pha) 1 Q8HR .XX 01/26/17 22:00 01/28/17 06:00 (Narcan Inj) 0.4 mg UNSCH PRN IV PUSH 01/26/17 15:15 (Benadryl Inj) 25 mg Q6H PRN IV PUSH 01/26/17 15:15 Assessment and Plan Assessment and Plan Stable s/p left radical nephrectomy OOB/Ambulation PT consult Pain controlled. 01/28 Stable POD#2 left radical nephrectomy OOB/Ambulation D/C EVELYN and rafaela today Full liquid diet Angel Cavazos DO Jan 28, 2017 08:40
[2017-01-28] MEDS: HYDROmorphone HCL PCA 6 MG/30 ML IV SCH (08:54)
[2017-01-28] MEDS: FAMOTIDINE 20 MG TAB PO SCH (09:39)
[2017-01-28] MEDS: METOPROLOL TARTRATE 50 MG TAB PO SCH ×2 (09:39→20:56)
[2017-01-28 19:00] LABS: BLOOD GAS BASE EXCESS 2.6 mmol/L (-2-2); BLOOD GAS HCO3 26 mmol/L (22-26); BLOOD GAS METHEMOGLOBIN 0.8 % (0-2); BLOOD GAS O2 HGB SATURATION 87 % (90-100); BLOOD GAS OXYGEN CONTENT 10.7 Vol % (12.0-20.0); BLOOD GAS PCO2 37 mmHg (38-42); BLOOD GAS PO2 51 mmHg (61-120); BLOOD GAS TOTAL HGB 8.7 G/DL (12.0-16.0); TEMP CORR TO 98.6
[2017-01-28 19:01] LABS: CRITICAL VALUE YES; DRAW SITE LT RADIAL; FIO2 21 %; NUMBER OF ARTERIAL PUNCTURES 1; STAT YES; ULNAR PULSE PRESENT
[2017-01-28] MEDS ORDERED: RESP: ALBUTEROL 2.5 MG/IPRATROPIUM 0.5 MG NEB (PRN) NEB (19:15)
[2017-01-28 19:49] LABS: BASOPHIL % 0.2 % (0.0-2.0); HEMATOCRIT 24.9 % (35.0-46.0); HEMO FLAGS DIFF FINAL; LYMPH % 4.1 % (9.0-44.0); LYMPHOCYTE # 0.6 TH/MM3 (1.0-4.8); MEAN CELL VOLUME 85.1 FL (80.0-100.0); MEAN CORPUSCULAR HEMOGLOBIN 28.2 PG (27.0-34.0); MEAN CORPUSCULAR HGB CONC 33.1 % (32.0-36.0); MONO % 7.3 % (0.0-8.0); NEUT % 88.4 % (16.0-70.0); PLATELET COUNT 184 TH/MM3 (150-450); RED BLOOD COUNT 2.93 MIL/MM3 (4.00-5.30); RED CELL DISTRIBUTION WIDTH 14.1 % (11.6-17.2); WHITE BLOOD COUNT 14.7 TH/MM3 (4.0-11.0)
[2017-01-28 19:59] LABS: BICARBONATE 24.9 MEQ/L (21.0-32.0)
[2017-01-28 20:05] LABS: POTASSIUM 2.9 MEQ/L (3.5-5.1)
[2017-01-28] MEDS ORDERED: POTASSIUM CHLOR 40 MEQ PREMIX 100 ML IV ONE (20:30)
[2017-01-28] MEDS ORDERED: IODIXANOL 320 MG/ML 10 ML VIAL (for Rad CT) IVCONTRAST ONE (20:49)
--- NOTE | 2017-01-28 21:12 | RADRPT ---
EXAM DATE/TIME: 01/28/2017 20:27 [facility] COMPARISON: CT ABDOMEN & PELVIS W/O CONTRAST, December 30, 2016, 13:37. CT PULMONARY ANGIOGRAM, October 04, 2013, 0: 25. INDICATIONS : Shortness of breath. Possible emboli. Post nephrectomy. IV CONTRAST: 50 cc Visipaque (iodixanol) IV RADIATION DOSE: 6.14 CTDIvol (mGy) MEDICAL HISTORY : Cardiovascular disease. Hypertension. Chronic obstructive pulmonary disease. SURGICAL HISTORY : Hysterectomy. Nephrectomy, left. ENCOUNTER: Initial ACUITY: 1 day PAIN SCALE: 6/10 LOCATION: Bilateral chest TECHNIQUE: Volumetric scanning of the chest was performed using a pulmonary embolism protocol MIP images were re constructed. Using automated exposure control and adjustment of the mA and/or kV according to patien t size, radiation dose was kept as low as reasonably achievable to obtain optimal diagnostic quality images. DICOM format image data is available electronically for review and comparison. Follow-up recommendations for detected pulmonary nodules are based at a minimum on nodule size and pa tient risk factors according to Fleischner Society Guidelines. FINDINGS: PULMONARY ARTERIES: No filling defects are seen in the pulmonary arteries through the segmental level. LUNGS: There is mild atelectasis seen adjacent to the pleural effusions in the lung bases. There is minimal patchy density in the upper lungs. PLEURAE: There are mild bilateral pleural effusions. MEDIASTINUM: There is good visualization of the great vessels of the middle mediastinum. No evidence of mediastin al or hilar adenopathy/mass. MUSCULOSKELETAL: Within normal limits for patient age. MISCELLANEOUS: There is pneumoperitoneum. There is air in the subcutaneous soft tissues being more prominent left th an the right. There is fluid in the peritoneal cavity. CONCLUSION: 1. No pulmonary embolus. 2. Free fluid and free air in the peritoneal cavity. There is subcutaneous air seen. The patient is s tatus post nephrectomy 2 days ago. 3. Mild bilateral pleural effusions with accompanying areas of atelectasis. Fish Albert MD on January 28, 2017 at 21:03 Board Certified Radiologist. This report was verified electronically.
[2017-01-28] MEDS: ENOXAPARIN SODIUM 30 MG/0.3 ML SYRINGE SQ SCH (22:27)
--- NOTE | 2017-01-28 23:44 | PD.CONS ---
HPI Service [facility] . Consult Requested By Dr. Cavazos . Reason for Consult Shortness of breath, tachycardia, fevers . Primary Care Physician Amarilys Mcginnis MD Diagnoses: (1) Sepsis (2) Status post nephrectomy (3) Hypokalemia History of Present Illness Ms. Choudhary is a pleasant 61 y/o female with a history of CAD, COPD, poorly functioning left kidney with recurrent pyelonephritis and nephrolithiasis, diverticulitis with colovesical fistula status post hemicolectomy with ileostomy that was reversed who presented to the hospital on 01/26/2017 for left radical nephrectomy with left ureteral stent removal by Dr. Cavazos. The patient was doing well with her post-operative course until the afternoon of when she developed abrupt shortness of breath accompanied by tachycardia and elevated temperature. Oxygen saturation 87% with PO2 51 on room air ABGs. Supplemental oxygen was administered. CT PA was performed and showed mild atelectasis adjacent to mild bilateral pleural effusions and minimal patchy density in upper lungs. [facility] were [facility] by Dr. Cavazos to manage further evaluation of the above. The patient is seen in her room. She states that she was on the phone with a friend at noon today and began to abruptly feel extremely short of breath. Her symptoms were so severe that she felt like she was no longer able to carry on a conversation. She denied any accompanying chest pain. She states she then developed fevers and rapid heart rate. She denies palpitations. Around the same time, she developed worsening abdominal pain with multiple episodes of liquid stools. In fact during my visit, she had 2 such episodes with foul-smelling liquid stools. She reports being on Bactrim DS for 10 days towards the end of December. She denies any nausea today; reports that she was nauseated yesterday. She has a long history of diverticulitis with a colovesical fistula formation causing her to have a surgical resection with ileostomy and reversal of ileostomy in 2013. Potassium is 2.9. Nursing reports EVELYN drain was removed today as it was not draining anything. The patient is having pain that is 3 out of 10 and burning and aching in character in the left postoperative area that is worse with movement but relieved with AWNING HANGER pump. . Review of Systems Except as stated in HPI: all other systems reviewed are Neg Past Family Social History Allergies: Coded Allergies: ciprofloxacin (Verified Allergy, Severe, hives, 01/19/17) haloperidol (Verified Allergy, Severe, THROAT SWELLING, 01/19/17) prochlorperazine (Verified Allergy, Severe, DYSTONIA, 01/19/17) vancomycin (Verified Allergy, Severe, HIVES, 01/19/17) PT STATES SHE HAD REDNESS AND ITCHING AFTER ONE DOSE. WAS GIVEN BENADRYL IV docusate (Verified Allergy, Mild, HEADACHE, 01/19/17) pantoprazole (Verified Adverse Reaction, Severe, Headache, 01/19/17) tramadol (Verified Adverse Reaction, Severe, GI DISTRESS, 01/19/17) Past Medical History Sepsis October 2016 Diverticulitis COPD CAD Post-thyroidectomy Hypothyroidism Benign thyroid nodules 3 Osteoporosis Chronic back pain Cardia Sepsis Bacterial meningitis 1986 Colovesicular fistula GERD Nephrolithiasis . Past Surgical History Thyroidectomy Tonsillectomy Multiple surgeries to right arm Lumbar laminectomy with metal carline placement per patient Heart catheterization by Dr. Nieto 2012 - 40% blockage noted - she does not follow up as an outpatient with any probate clerk Ileostomy with reversal in 2013 Colon resection in 2013 Hysterectomy Right total knee replacement Right foot bunionectomy . Reported Medications Reported Meds & Active Scripts Active Percocet (Oxycodone-Acetaminophen) 7.5-325 mg Tab 1 Tab PO Q6H PRN Ditropan (Oxybutynin Chloride) 5 Mg Tab 5 Mg PO Q12HR Reported Simethicone 1 Liq Liq Zantac (Ranitidine HCl) 150 Mg Tab 150 Mg PO DAILY Metoprolol Tartrate 50 Mg Tab 50 Mg PO BID Synthroid (Levothyroxine Sodium) 88 Mcg Tab 88 Mcg PO DAILY . Active Ordered Medications Current Medications Cefazolin Sodium 1000 mg/Sodium Chloride 100 ml @ 200 mls/hr CASUALTY UNDERWRITER IV Last administered on 01/26/17 08:38; Start 01/26/17 at 06:00; Stop 01/26/17 at 14 :18; Status DC Lactated Ringer's 1,000 ml @ 30 mls/hr Q24H PRN IV SEE LABEL COMMENTS Last administered on 01/26/17 06:20; Start 01/26/17 at 06:00; Stop 01/26/17 at 14 :17; Status DC Sodium Chloride 500 ml @ 30 mls/hr [id number] PRN IV SEE LABEL COMMENTS; Start at 06:00; Stop 01/26/17 at 14:17; Status DC Metoprolol Tartrate (Lopressor) 25 mg CASUALTY UNDERWRITER PRN PO SEE LABEL COMMENTS; Start 01/26/17 at 06:00; Stop 01/29/17 at 05:59 Povidone Iodine (Betadine 5% Antisepsis Kit) 1 applic CASUALTY UNDERWRITER PRN EACH NARE SEE LABEL COMMENTS Last administered on 01/26/17 06:30; Start 01/26/17 at 06: 00; Stop 01/29/17 at 05:59 Chlorhexidine Gluconate (Chlorhexidine 2% Cloth) 3 pack CASUALTY UNDERWRITER PRN TOPICAL SEE LABEL COMMENTS Last administered on 01/26/17 05:40; Start 01/26/17 at 06: 00; Stop 01/29/17 at 05:59 Insulin Human Regular (NovoLIN R INJ) See Protocol Table ... CASUALTY UNDERWRITER PRN SQ SEE PROTOCOL TABLE; Start 01/26/17 at 06:00; Stop 01/29/17 at 05:59 Bupivacaine HCl/ Epinephrine Bitart (Sensorcaine-Epi 0.5% 50 ml Inj) 50 ml STK- MED ONCE .ROUTE ; Start 01/26/17 at 07:43; Stop 01/26/17 at 07:44; Status DC Bupivacaine HCl (Marcaine Pf 0.5% Inj) 30 ml STK-MED ONCE .ROUTE Last administered on 01/26/17 10:20; Start 01/26/17 at 07:43; Stop 01/26/17 at 07 :44; Status DC Mannitol 50 ml @ As Directed STK-MED ONCE .ROUTE ; Start 01/26/17 at 07:44; Stop 01/26/17 at 07:45; Status DC Acetaminophen 100 ml @ As Directed STK-MED ONCE IV ; Start 01/26/17 at 07:48; Stop 01/26/17 at 07:49; Status DC Sugammadex Sodium (Bridion Inj) 200 mg STK-MED ONCE IV PUSH ; Start 01/26/17 at 08:12; Stop 01/26/17 at 08:13; Status DC Hydromorphone HCl (Dilaudid Pf Inj) 2 mg STK-MED ONCE .ROUTE ; Start 01/26/17 at 08:13; Stop 01/26/17 at 08:14; Status DC Cisatracurium Besylate (Nimbex Inj) 20 mg STK-MED ONCE .ROUTE ; Start 01/26/17 at 08:15; Stop 01/26/17 at 08:16; Status DC Bupivacaine Liposome (Exparel Pf 1.3% Inj) 20 ml STK-MED ONCE .ROUTE ; Start at 08:35; Stop 01/26/17 at 08:36; Status DC Cefazolin Sodium (Ancef Inj) 1,000 mg ONCE ONCE IV Last administered on 12:42; Start 01/26/17 at 12:48; Stop 01/26/17 at 12:53; Status DC Cefazolin Sodium 1000 mg/Sodium Chloride 100 ml @ 200 mls/hr Q8H IV Last administered on 01/27/17 08:54; Start 01/26/17 at 16:00; Stop 01/27/17 at 08 :29; Status DC Lactated Ringer's 1,000 ml @ 100 mls/hr Q10H IV Last administered on 18:18; Start 01/26/17 at 13:45 Ondansetron HCl (Zofran Inj) 4 mg Q6HR PRN IV PUSH nausea Last administered on 01/27/17 08:59; Start 01/26/17 at 13:45 Acetaminophen (Tylenol 650 Mg/ 20 ml Liq) 650 mg Q6H PRN PO temp>100.6; Start 01/26/17 at 13:45 Levothyroxine Sodium (Synthroid) 88 mcg DAILY@0600 PO Last administered on 05:54; Start 01/27/17 at 06:00 Metoprolol Tartrate (Lopressor) 50 mg Q12HR PO Last administered on 01/28/17 20:56; Start 01/26/17 at 21:00 Famotidine (Pepcid) 20 mg DAILY PO Last administered on 01/28/17 09:39; Start 01/27/17 at 09:00 Oxycodone/ Acetaminophen (Percocet 10-325 Mg) 1 tab Q6H PRN PO pain 6-10; Start 01/26/17 at 13:45 Hydromorphone HCl (Dilaudid AWNING HANGER Inj) 6 mg STK-MED ONCE IV ; Start 01/26/17 at 14:36; Stop 01/26/17 at 14:37; Status DC Hydromorphone HCl (*DILAUDID PF INJ PERIprocedural ONLY) 1 mg STK-MED ONCE .ROUTE Last administered on 01/26/17 14:41; Start 01/26/17 at 14:41; Stop 01/26/17 at 14:42; Status DC Miscellaneous Information ALL NURSING DEPARTME... UNSCH PRN .XX SEE LABEL COMMENTS; Start 01/26/17 at 13:56; Stop 01/27/17 at 13:55; Status DC Hydromorphone HCl (Dilaudid AWNING HANGER Inj) 6 mg UNSCH IV Last administered on 08:54; Start 01/26/17 at 15:15 AWNING HANGER Dosage Infused (Pha) 1 Q8HR .XX Last administered on 01/28/17 21:00; Start 01/26/17 at 22:00 Naloxone HCl (Narcan Inj) 0.4 mg UNSCH PRN IV PUSH RESPIRATORY RATE LESS THAN 10; Start 01/26/17 at 15:15 Diphenhydramine HCl (Benadryl Inj) 25 mg Q6H PRN IV PUSH ITCHING; Start at 15:15 Lidocaine HCl (Xylocaine-Mpf 1% Inj) 50 ml STK-MED ONCE OTHER ; Start 01/26/17 at 12:00; Stop 01/28/17 at 12:08; Status DC Rocuronium Hardy (Zemuron Inj) 100 mg STK-MED ONCE IV PUSH ; Start 01/26/17 at 12:00; Stop 01/28/17 at 12:08; Status DC Phenylephrine HCl (Neosynephrine/ NS 1000 Mcg/10ml Syr) 1,000 mcg STK-MED ONCE IV ; Start 01/26/17 at 12:00; Stop 01/28/17 at 12:08; Status DC Ephedrine Sulfate (ePHEDrine/NS 25 MG/5 ML SYR) 25 mg STK-MED ONCE IV ; Start 01/26/17 at 12:00; Stop 01/28/17 at 12:08; Status DC Midazolam HCl (Versed Inj) 2 mg STK-MED ONCE IV ; Start 01/26/17 at 12:00; Stop 01/28/17 at 12:08; Status DC Dexamethasone Sodium Phosphate (Decadron Inj) 4 mg STK-MED ONCE IV ; Start at 12:00; Stop 01/28/17 at 12:08; Status DC Ondansetron HCl (Zofran Inj) 4 mg STK-MED ONCE IV PUSH ; Start 01/26/17 at 12: 00; Stop 01/28/17 at 12:08; Status DC Cefazolin Sodium (Ancef Inj) 1,000 mg STK-MED ONCE IV PUSH ; Start 01/26/17 at 12:00; Stop 01/28/17 at 12:08; Status DC Fentanyl Citrate (fentaNYL INJ) 300 mcg STK-MED ONCE IV ; Start 01/26/17 at 12: 00; Stop 01/28/17 at 12:08; Status DC Morphine Sulfate (Morphine Inj) 4 mg STK-MED ONCE IV ; Start 01/26/17 at 12:00 ; Stop 01/28/17 at 12:08; Status DC Propofol (Diprivan 200 Mg/20 ml Inj) 200 mg STK-MED ONCE IV ; Start 01/26/17 at 12:00; Stop 01/28/17 at 12:08; Status DC Sodium Chloride (Sodium Chloride 0.9% Inj) 20 ml STK-MED ONCE IV ; Start at 12:00; Stop 01/28/17 at 12:08; Status DC Parenteral Electrolytes 2,000 ml @ As Directed STK-MED ONCE IV ; Start at 12:00; Stop 01/28/17 at 12:08; Status DC Albuterol/ Ipratropium (Duoneb Neb) 1 ampule Q4HR NEB PRN NEB WHEEZING; Start 01/28/17 at 19:15 Potassium Chloride 100 ml @ 25 mls/hr BOLUS ONCE IV Last administered on t 20:56; Start 01/28/17 at 20:30; Stop 01/29/17 at 00:29; Status DC Iodixanol (VISIPAQUE 320 INJ (Rad CT)) 50 ml STK-MED ONCE IVCONTRAST Last administered on 01/28/17t 20:49; Start 01/28/17 at 20:49; Stop 01/28/17 at 20 :50; Status DC Enoxaparin Sodium (Lovenox Inj) 30 mg Q12HR SQ Last administered on 01/28/17 22:27; Start 01/28/17 at 21:15 Albuterol/ Ipratropium (Duoneb Neb) 1 ampule Q4HR NEB NEB Last administered on 01/28/17 23:51; Start 01/29/17 at 00:00 Cefepime HCl 2000 mg/Sodium Chloride 100 ml @ 200 mls/hr Q8H IV ; Start at 00:00 . Family History Mother with COPD and congestive heart failure Father from lung cancer . Social History Tobacco: Reports that she never smoked Alcohol: Reports that she never drinks alcohol Illicit Drugs: Reports that she's never tried any illicit drugs . Physical Exam Vital Signs Vital Signs Date Time Temp Pulse Resp B/P (MAP) Pulse Ox O2 Delivery O2 Flow Rate FiO2 01/28/17 21:00 20 01/28/17 20:00 100.6 121 19 149/72 (97) 98 01/28/17 16:00 100.3 121 17 159/79 (105) 90 01/28/17 13:52 16 01/28/17 11:30 96.4 91 18 137/65 (89) 94 01/28/17 09:05 16 01/28/17 08:54 16 01/28/17 07:40 98.0 97 18 133/74 (93) 97 01/28/17 06:00 18 01/28/17 06:00 18 01/28/17 04:00 98.7 104 18 137/79 (98) 93 01/28/17 00:00 99.5 109 17 118/73 (88) 91 Physical Exam GENERAL: This is a frail, pale older female patient, in pain with movement from bed to BSC. SKIN: No rashes. Cool and dry. Small area of purple bruising noted to left CVA region - no hematoma seen. HEAD: Atraumatic. Normocephalic. EYES: No scleral icterus. No injection or drainage. ENT: Nose without bleeding, purulent drainage. NECK: Trachea midline. No JVD. CARDIOVASCULAR: Tachycardic rate and normal rhythm without murmurs, gallops, or rubs. RESPIRATORY: Anterior breath sounds diminished at bases, equal bilaterally. No wheezes, rales, or rhonchi. Patient becomes somewhat dyspneic with movement to [facility] GASTROINTESTINAL: Hyperactive bowel sounds. Abdomen soft, diffusely tender to palpation, nondistended. No guarding. MUSCULOSKELETAL: Extremities without clubbing, cyanosis, or edema. No calf tenderness. NEUROLOGICAL: Awake and alert. Motor and sensory grossly within normal limits. Normal speech. . Laboratory Laboratory Tests Test 01/28/17 06:00 01/28/17 18:55 01/28/17 19:10 White Blood Count 14.4 14.7 Red Blood Count 2.90 2.93 Hemoglobin 8.2 8.3 Hematocrit 24.9 24.9 Mean Corpuscular Volume 86.1 85.1 Mean Corpuscular Hemoglobin 28.3 28.2 Mean Corpuscular Hemoglobin Concent 32.9 33.1 Red Cell Distribution Width 14.7 14.1 Platelet Count 181 184 Mean Platelet Volume 7.8 7.7 Blood Urea Nitrogen 21 17 Creatinine 0.83 0.74 Random Glucose 87 123 Calcium Level 8.4 7.5 Sodium Level 141 141 Potassium Level 3.6 2.9 Chloride Level 108 111 Carbon Dioxide Level 24.7 24.9 Anion Gap 8 5 Estimat Glomerular Filtration Rate 70 80 Blood Gas Puncture Site LT RADIAL Blood Gas Patient Temperature 98.6 Blood Gas HCO3 26 Blood Gas Base Excess 2.6 Blood Gas Oxygen Saturation 87 Arterial Blood pH 7.46 Arterial Blood Partial Pressure CO2 37 Arterial Blood Partial Pressure O2 51 Arterial Blood Oxygen Content 10.7 Arterial Blood Carboxyhemoglobin 2.0 Arterial Blood Methemoglobin 0.8 Blood Gas Hemoglobin 8.7 Blood Gas Inspired Oxygen 21 Neutrophils (%) (Auto) 88.4 Lymphocytes (%) (Auto) 4.1 Monocytes (%) (Auto) 7.3 Eosinophils (%) (Auto) 0.0 Basophils (%) (Auto) 0.2 Neutrophils # (Auto) 13.0 Lymphocytes # (Auto) 0.6 Monocytes # (Auto) 1.1 Eosinophils # (Auto) 0.0 Basophils # (Auto) 0.0 CBC Comment DIFF FINAL Differential Comment Result Diagram: 01/28/17190901/28/171909 Imaging Last Impressions CT Angiography 01/28/17 0000 Signed Impressions: Service Date/Time: January 20:27 - CONCLUSION: 1. No pulmonary embolus. 2. Free fluid and free air in the peritoneal cavity. There is subcutaneous air seen. The patient is status post nephrectomy 2 days ago. 3. Mild bilateral pleural effusions with accompanying areas of atelectasis. Fish Albert MD Chest X-Ray 01/26/17 0000 Signed Impressions: Service Date/Time: Thursday, January 26, 2017 14:35 - CONCLUSION: 1. Left subclavian central line distal tip is in the SVC. 2. Extensive chest wall and supraclavicular subcutaneous emphysema from uncertain etiology. No pneumothorax is identified. Fish Gage MD . Assessment and Plan Problem List: (1) Pneumonia ICD Code: J18.9 - Pneumonia, unspecified organism (2) Sepsis ICD Code: A41.9 - Sepsis, unspecified organism (3) Abdominal pain ICD Code: R10.9 - Abdominal pain Status: Acute (4) Diarrhea ICD Code: R19.7 - Diarrhea, unspecified (5) Status post nephrectomy ICD Code: Z90.5 - Acquired absence of kidney (6) Hypokalemia ICD Code: E87.6 - Hypokalemia Status: Acute Assessment and Plan Ms. Choudhary is a pleasant 61 y/o female with a history of CAD, COPD, poorly functioning left kidney with recurrent pyelonephritis and nephrolithiasis, diverticulitis with colovesical fistula status post hemicolectomy with ileostomy that was reversed who presented to the hospital on 01/26/2017 for left radical nephrectomy with left ureteral stent removal by Dr. Cavazos. The patient was doing well with her post-operative course until the afternoon of when she developed abrupt shortness of breath accompanied by tachycardia and elevated temperature. Oxygen saturation 87% with PO2 51 on room air ABGs. Supplemental oxygen was administered. CT PA was performed and showed mild atelectasis adjacent to mild bilateral pleural effusions and minimal patchy density in upper lungs. [facility] hospitalists were consulted by Dr. Cavazos to manage further evaluation of the above. Sepsis likely secondary to bilateral upper lobe pneumonia and/or gastroenteritis - Febrile with max. temp of 100.6, tachycardic 120's, hypoxia, WBC 14.7 with increasing neutrophilia - lactic acid checked and resulted normal at 1.1 - Blood cultures ordered 2- follow results - Cefepime 2 g IV every 8 hours was started - Continuous cardiac telemetry to monitor for arrhythmias - Duo nebulizers every 4 hours and q4h PRN for sob/wheezing - Supplemental oxygen titrated to maintain oxygen saturation greater than 92% - Repeat CBC in a.m. and follow results Abdominal pain Diarrhea - Patient reports a history of recent outpatient antibiotic use - has a lengthy and complicated history of complications secondary to diverticulitis - Check CT of abdomen and pelvis without contrast - follow results - Check stool culture and for C. difficile - follow results - Check CMP to evaluated LFTs Hypokalemia secondary to diarrhea - Potassium replaced - Recheck potassium in the morning with CMP and follow results - Replace potassium as needed SOB - see above - given history of CAD diagnosed in 2012 and mild bilateral pleural effusions on CT PA, will check BNP for CHF DVT prophylaxis - Lovenox 30 mg subq daily per Dr. Cavazos . Discussed Condition With Dr. Frey, RN, charge nurse, and patient . Problem Qualifiers (1) Sepsis: Qualified Codes: A41.9 - Sepsis, unspecified organism Lindsey Chase Jan 28, 2017 23:44
[2017-01-28] MEDS: RESP: ALBUTEROL 2.5 MG/IPRATROPIUM 0.5 MG NEB (SCH) NEB (23:51)
[2017-01-29] VITALS (10 sets, daily range): BP systolic 111–156; BP diastolic 59–75; PULSE 85–108; RESP 16–22; TEMP 97.3–99.8; O2SAT 96–100
[2017-01-29] MEDS: CEFEPIME INJ 2,000 MG in SODIUM CHLORIDE 0.9% INJ 100 ML IV SCH ×3 (01:35→17:01)
[2017-01-29] MEDS: LACTATED RINGER'S 1000 ML INJ 1,000 ML IV SCH ×3 (01:45→21:15)
--- NOTE | 2017-01-29 03:21 | RADRPT ---
EXAM DATE/TIME: 01/29/2017 02:21 [facility] COMPARISON: CT PULMONARY ANGIOGRAM, January 28, 2017, 20:27. CT ABDOMEN & PELVIS W/O CONTRAST, December 30, 2016 , 13:37. INDICATIONS : Abdominal pain. 2 days status post left nephrectomy. ORAL CONTRAST: No oral contrast ingested. RADIATION DOSE: 6.71 CTDIvol (mGy) MEDICAL HISTORY : Diverticulitis. SURGICAL HISTORY : Nephrectomy, left. Colon resection.Hysterectomy.Lumbar fusion. ENCOUNTER: Initial ACUITY: 1 day PAIN SCALE: 9/10 LOCATION: abdomen TECHNIQUE: Volumetric scanning of the abdomen and pelvis was performed. Using automated exposure control and ad justment of the mA and/or kV according to patient size, radiation dose was kept as low as reasonably achievable to obtain optimal diagnostic quality images. DICOM format image data is available electro nically for review and comparison. FINDINGS: Moderate-sized bilateral pleural effusions measure 2.8 cm on the right side and 1.9 cm on the left si de. There is associated mild compressive atelectasis. The pleural effusions are new when compared t o the preoperative CT. There is extensive subcutaneous emphysema about the anterior abdominal wall and left posterolateral a bdomen and pelvis, characteristic of recent nephrectomy. There is also free intraperitoneal gas unde rneath the diaphragms and some scattered mesenteric gas centrally. Small amount of ascites under the right hemidiaphragm and tracking along the free edge of the liver. There is mixed density material in the left nephrectomy site with a 4.5 cm area of low density (21 Ho unsfield units and some adjacent areas of indurated fat. Anastomosis sutures seen along the superior aspect of the nephrectomy site. Loops of small bowel measure up to 2.9 cm. No calcified gallstones. The examination is performed without intravenous contrast, but the patient had a CT pulmonary angiogr am earlier the same day and there is dense contrast within the urinary bladder. There is also gas wi thin the urinary bladder lumen. Anastomosis sutures seen in the rectum. Wide windows for bony detail demonstrate evidence of prior lower lumbar surgery with transpedicular s crews. CONCLUSION: 1. Post surgical changes from left nephrectomy with multifocal areas of subcutaneous emphysema, free intraperitoneal gas, mild ascites about the liver, and air-fluid level within the urinary bladder. A t the nephrectomy site, there is a prominent area of fluid measuring almost 5 cm. 2. Bilateral pleural effusions, right greater than left. Dirk Rivera MD on January 29, 2017 at 2:46 Board Certified Radiologist. This report was verified electronically.
[2017-01-29 03:34] LABS: C. DIFF EPI 027 PRESUMPTIVE NEGATIVE (NEGATIVE)
[2017-01-29] MEDS: RESP: ALBUTEROL 2.5 MG/IPRATROPIUM 0.5 MG NEB (SCH) NEB ×4 (04:06→20:27)
[2017-01-29] MEDS: metroNIDAZOLE 500 MG TAB PO SCH ×3 (04:24→21:15)
[2017-01-29] MEDS: LEVOTHYROXINE SODIUM 88 MCG TAB PO SCH (04:24)
[2017-01-29] MEDS: HYDROmorphone HCL PCA 6 MG/30 ML IV SCH (04:29)
[2017-01-29] MEDS: PCA - TOTAL MG DILAUDID DELIVERED PER SHIFT SCH (05:06)
[2017-01-29 06:22] LABS: HEMATOCRIT 23.8 % (35.0-46.0); MEAN CELL VOLUME 86.1 FL (80.0-100.0); MEAN CORPUSCULAR HEMOGLOBIN 29.2 PG (27.0-34.0); MEAN CORPUSCULAR HGB CONC 33.9 % (32.0-36.0); PLATELET COUNT 140 TH/MM3 (150-450); RED BLOOD COUNT 2.77 MIL/MM3 (4.00-5.30); RED CELL DISTRIBUTION WIDTH 14.1 % (11.6-17.2); REVIEW FLAG FINAL; WHITE BLOOD COUNT 11.2 TH/MM3 (4.0-11.0)
[2017-01-29 06:59] LABS: BICARBONATE 26.4 MEQ/L (21.0-32.0); POTASSIUM 3.4 MEQ/L (3.5-5.1)
[2017-01-29 07:58] LABS: ALKALINE PHOSPHATASE 78 U/L (45-117); ALT (GPT) 8 U/L (10-53); ANION GAP 6 MEQ/L (5-15); AST (GOT) 18 U/L (15-37); BICARBONATE 25.7 MEQ/L (21.0-32.0); BLOOD UREA NITROGEN 14 MG/DL (7-18); CHLORIDE 110 MEQ/L (98-107); GLOMERULAR FILTRATION RATE 74 ML/MIN (>89); POTASSIUM 4.2 MEQ/L (3.5-5.1); SODIUM (NA) 142 MEQ/L (136-145); TOTAL BILIRUBIN ADULT 0.4 MG/DL (0.2-1.0)
[2017-01-29] MEDS: ENOXAPARIN SODIUM 30 MG/0.3 ML SYRINGE SQ SCH ×2 (09:00→21:15)
[2017-01-29 09:32] LABS: BLOOD, URINE SMALL (NEG); GLUCOSE,URINE TRACE mg/dL (NEG); KETONE, URINE NEG (NEG); NITRITE,URINE NEG (NEG); URINE COLOR YELLOW (YELLW/STRAW)
--- NOTE | 2017-01-29 09:42 | HHI.PR ---
Subjective Patient symptoms today Pt seen and examined. Some SOB last PM still present but better this AM. No PE on CT scan. Possible pneumonia post op. Objective Vital Signs Vital Signs Date Time Temp Pulse Resp B/P (MAP) Pulse Ox O2 Delivery O2 Flow Rate FiO2 01/29/17 08:46 96 Nasal Cannula 2.00 01/29/17 07:46 Room Air 3.00 01/29/17 07:30 98.1 108 20 137/71 (93) 99 01/29/17 05:07 18 01/29/17 05:06 18 01/29/17 04:29 18 01/29/17 04:00 99.8 105 22 136/68 (90) 100 01/29/17 00:00 99.3 106 18 156/73 (100) 100 01/28/17 21:00 20 01/28/17 20:20 18 01/28/17 20:20 100 Nasal Cannula 2.00 01/28/17 20:00 100.6 121 19 149/72 (97) 98 01/28/17 16:00 100.3 121 17 159/79 (105) 90 01/28/17 13:52 16 01/28/17 11:30 96.4 91 18 137/65 (89) 94 Intake & Output 01/29/17 01/29/17 07:00 19:00 Intake Total 800 ml Output Total 300 ml Balance 500 ml Intake Oral 200 ml IV Total 600 ml Output Urine Total 300 ml # Bowel Movements 3 Result Diagram: 01/29/17 0600 01/29/17 0625 Imaging Last 24 hours Impressions Abdomen/Pelvis CT 01/29/17 0131 Signed Impressions: Service Date/Time: Sunday, January 29, 2017 02:21 - CONCLUSION: 1. Post surgical changes from left nephrectomy with multifocal areas of subcutaneous emphysema, free intraperitoneal gas, mild ascites about the liver, and air- fluid level within the urinary bladder. At the nephrectomy site, there is a prominent area of fluid measuring almost 5 cm. 2. Bilateral pleural effusions, right greater than left. Dirk Rivera MD Objective Remarks Abd: soft,nd, incisional tenderness Naidu with clear urine Dressing intact 01/28 Abd: soft,nd, incisional tenderness Naidu with clear urine Dressing intact 01/29 CV: sinus tach Lungs: decreased BS Abd:soft,nd, some incisional tenderness Ext: neg C/C/E Medications and IVs Current Medications Medications (Trade) Dose Ordered Sig/Debora Route Start Time Stop Time Status Last Admin Lactated Ringer's 1,000 ml @ 100 mls/hr Q10H IV 01/26/17 13:45 01/28/17 18:18 (Zofran Inj) 4 mg Q6HR PRN IV PUSH 01/26/17 13:45 01/27/17 08:59 (Tylenol 650 Mg/ 20 ml Liq) 650 mg Q6H PRN PO 01/26/17 13:45 (Synthroid) 88 mcg DAILY@0600 PO 01/27/17 06:00 01/29/17 04:24 (Lopressor) 50 mg Q12HR PO 01/26/17 21:00 01/28/17 20:56 (Pepcid) 20 mg DAILY PO 01/27/17 09:00 01/28/17 09:39 (Percocet 10-325 Mg) 1 tab Q6H PRN PO 01/26/17 13:45 (Dilaudid AUTO MOTOR MECHANIC Inj) 6 mg UNSCH IV 01/26/17 15:15 01/29/17 04:29 AUTO MOTOR MECH[employer]IC Dosage Infused (Pha) 1 Q8HR .XX 01/26/17 22:00 01/29/17 05:06 (Narcan Inj) 0.4 mg UNSCH PRN IV PUSH 01/26/17 15:15 (Benadryl Inj) 25 mg Q6H PRN IV PUSH 01/26/17 15:15 (Duoneb Neb) 1 ampule Q4HR NEB PRN NEB 01/28/17 19:15 (Lovenox Inj) 30 mg Q12HR SQ 01/28/17 21:15 01/28/17 22:27 (Duoneb Neb) 1 ampule Q4HR NEB NEB 01/29/17 00:00 01/29/17 08:43 Cefepime HCl 2000 mg/Sodium Chloride 100 ml @ 200 mls/hr Q8H IV 01/29/17 00:00 01/29/17 07:31 (Flagyl) 500 mg Q8H PO 01/29/17 04:00 01/29/17 04:24 Assessment and Plan Assessment and Plan Stable s/p left radical nephrectomy OOB/Ambulation PT consult Pain controlled. 01/28 Stable POD#2 left radical nephrectomy OOB/Ambulation D/C EVELYN and rafaela today Full liquid diet 01/29 S/P left [place] lap radical nephrectomy Continue [facility] Medicine input appreciated Cefepime Check stool culture for C. Diff OOB Advance diet Stop AUTO MOTOR MECH[employer]IC Angel Cavazos DO Jan 29, 2017 09:42
[2017-01-29] MEDS: METOPROLOL TARTRATE 50 MG TAB PO SCH ×2 (09:59→21:00)
[2017-01-29 10:00] LABS: BACTERIA, URINE FEW /hpf
[2017-01-29] MEDS: FAMOTIDINE 20 MG TAB PO SCH (10:00)
[2017-01-29 10:01] LABS: COMMENT (UR) CULTURE INDICATED; CULTURE IF INDICATED CULTURE INDICATED
[2017-01-29] MEDS ORDERED: HYDROmorphone HCL PF 1 MG/ML VIAL IV PUSH PRN (11:00)
[2017-01-29] MEDS: oxyCODONE/ACETAMINOPHEN 10 MG/325 MG TAB PO PRN ×2 (11:43→17:12)
--- NOTE | 2017-01-29 14:06 | HHI.PR ---
Subjective Remarks Follow-up pneumonia, C. difficile. Patient still having diarrhea. She reports pain on her left side. Some nausea, but no vomiting. Denies dyspnea, cough, chest pain. Objective Vitals Vital Signs Date Time Temp Pulse Resp B/P (MAP) Pulse Ox O2 Delivery O2 Flow Rate FiO2 01/29/17 11:30 98.4 101 20 128/64 (85) 100 01/29/17 08:46 96 Nasal Cannula 2.00 01/29/17 07:46 Room Air 3.00 01/29/17 07:30 98.1 108 20 137/71 (93) 99 01/29/17 05:07 18 01/29/17 05:06 18 01/29/17 04:29 18 01/29/17 04:00 99.8 105 22 136/68 (90) 100 01/29/17 00:00 99.3 106 18 156/73 (100) 100 01/28/17 21:00 20 01/28/17 20:20 18 01/28/17 20:20 100 Nasal Cannula 2.00 01/28/17 20:00 100.6 121 19 149/72 (97) 98 01/28/17 16:00 100.3 121 17 159/79 (105) 90 I/O 01/28/17 01/28/17 01/28/17 01/29/17 01/29/17 01/29/17 07:00 15:00 23:00 07:00 15:00 23:00 Intake Total 1066 ml 2000 ml 800 ml Output Total 600 ml 300 ml Balance 466 ml 2000 ml 500 ml Intake Oral 240 ml 1000 ml 200 ml IV Total 826 ml 1000 ml 600 ml Output Urine Total 600 ml 300 ml Drainage Total 0 ml # Voids 4 # Bowel Movements 0 3 4 Result Diagram: 01/29/17 0600 01/29/17 0625 Imaging Last Impressions Abdomen/Pelvis CT 01/29/17 0131 Signed Impressions: Service Date/Time: Sunday, January 29, 2017 02:21 - CONCLUSION: 1. Post surgical changes from left nephrectomy with multifocal areas of subcutaneous emphysema, free intraperitoneal gas, mild ascites about the liver, and air- fluid level within the urinary bladder. At the nephrectomy site, there is a prominent area of fluid measuring almost 5 cm. 2. Bilateral pleural effusions, right greater than left. Dirk Rivera MD CT Angiography 01/28/17 0000 Signed Impressions: Service Date/Time: January 20:27 - CONCLUSION: 1. No pulmonary embolus. 2. Free fluid and free air in the peritoneal cavity. There is subcutaneous air seen. The patient is status post nephrectomy 2 days ago. 3. Mild bilateral pleural effusions with accompanying areas of atelectasis. Fish Albert MD Chest X-Ray 01/26/17 0000 Signed Impressions: Service Date/Time: Thursday, January 26, 2017 14:35 - CONCLUSION: 1. Left subclavian central line distal tip is in the SVC. 2. Extensive chest wall and supraclavicular subcutaneous emphysema from uncertain etiology. No pneumothorax is identified. Fish Gage MD Objective Remarks General: No acute distress. Sitting up in a chair. Heart: Regular rate and rhythm. No murmur. Lungs: Clear to auscultation bilaterally. No wheezes, rales, or rhonchi. Breathing is nonlabored. Abdomen: Soft, nondistended. Extremities: No lower extremity edema. Psych: Alert and oriented. Procedures 01/26/17 left radical nephrectomy Urinary Catheter: No Vascular Central Line Catheter: No A/P Problem List: (1) Pneumonia ICD Code: J18.9 - Pneumonia, unspecified organism (2) Sepsis ICD Code: A41.9 - Sepsis, unspecified organism (3) Abdominal pain ICD Code: R10.9 - Abdominal pain Status: Acute (4) Diarrhea ICD Code: R19.7 - Diarrhea, unspecified (5) Status post nephrectomy ICD Code: Z90.5 - Acquired absence of kidney (6) Hypokalemia ICD Code: E87.6 - Hypokalemia Status: Acute (7) C. difficile diarrhea ICD Code: A04.72 - Enterocolitis due to Clostridium difficile, not specified as recurrent Assessment and Plan 1. Sepsis: Secondary to pneumonia, C. difficile colitis. Continue antibiotics, cefepime and Flagyl. 2. Pneumonia: Continue supplemental oxygen, DuoNeb, antibiotics. 3. C. difficile diarrhea: Continue Flagyl. Continue IV fluids. 4. Hypokalemia: Secondary to diarrhea. 5. Status post left radical nephrectomy: Management per urology. 6. DVT prophylaxis: Lovenox. Problem Qualifiers (1) Sepsis: Qualified Codes: A41.9 - Sepsis, unspecified organism Alonso Marcum MD Jan 29, 2017 14:06
--- NOTE | 2017-01-29 16:03 | EKG ---
Date Performed: 01/28/2017 Time Performed: 22:18:57 PTAGE: 61 years EKG: SINUS TACHYCARDIA INCOMPLETE RIGHT BUNDLE BRANCH BLOCK MINIMAL ST DEPRESSION ABNORMAL RHYTH M ECG Compared to PREVIOUS TRACING , ST depression has improved. PREVIOUS TRACIN10/19/2016 03.24 DOCTOR: Kadeem Sharif Interpretating Date/Time 01/29/2017 16:03:03
--- NOTE | 2017-01-29 16:55 | PD.CONS ---
HPI History of Present Illness This is a 61 year old female with hx gastric ulcers, diverticulitis with colovesical fistula s/p ileostomy and subsequent reversal, CAD, COPD, recently s /p nephrectomy 01/26/17 who developed SOB, liquid stools. GI has been consulted for GIB. Pt was found to have c diff. Admits recent episode of scant black tarry stool, in the last 2 weeks intermittent BRBPR on wipe after some bowel movements. She has had loose stools since her surgery for ileostomy reversal in 2013 but has been having more of late, nearly constnat yesterday and today loose stool every hour. Denies abd pain. Denies bleeding at this time. No n/v. SHe has lost 40 lbs since 2013. She had colonoscopy and EGD in 2007. EGD found ulcers. Colonoscopy was by Dr Alvarez and pt cannot recall any details. 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 WAS GIVEN BENADRYL IV docusate (Verified Allergy, Mild, HEADACHE, 01/19/17) pantoprazole (Verified Adverse Reaction, Severe, Headache, 01/19/17) tramadol (Verified Adverse Reaction, Severe, GI DISTRESS, 01/19/17) Family History father - lung ca , ?colon ca Social History denies use ETOH, tobacco, illicit drugs (Laurita Lanier) Review of Systems Constitutional: DENIES: Diaphoretic episodes Eyes: DENIES: Blurred vision Ears, nose, mouth, throat: DENIES: Hearing loss Respiratory: DENIES: Hemoptysis Cardiovascular: DENIES: Chest pain Gastrointestinal: COMPLAINS OF: Diarrhea, DENIES: Abdominal pain, Black stools , Bloody stools, Nausea, Vomiting, Hematemesis Genitourinary: DENIES: Urgency Musculoskeletal: DENIES: Joint Swelling Integumentary: DENIES: Pruritus Hematologic/lymphatic: DENIES: Lymphadenopathy Neurologic: DENIES: Abnormal gait Psychiatric: DENIES: Confusion (Laurita Lanier) GI Exam Vitals I&O Vital Signs Date Time Temp Pulse Resp B/P (MAP) Pulse Ox O2 Delivery O2 Flow Rate FiO2 01/29/17 16:00 97.6 85 17 128/75 (92) 100 01/29/17 11:30 98.4 101 20 128/64 (85) 100 01/29/17 08:46 96 Nasal Cannula 2.00 01/29/17 07:46 Room Air 3.00 01/29/17 07:30 98.1 108 20 137/71 (93) 99 01/29/17 05:07 18 01/29/17 05:06 18 01/29/17 04:29 18 01/29/17 04:00 99.8 105 22 136/68 (90) 100 01/29/17 00:00 99.3 106 18 156/73 (100) 100 01/28/17 21:00 20 01/28/17 20:20 18 01/28/17 20:20 100 Nasal Cannula 2.00 01/28/17 20:00 100.6 121 19 149/72 (97) 98 I/O 01/28/17 01/28/17 01/28/17 01/29/17 01/29/17 01/29/17 07:00 15:00 23:00 07:00 15:00 23:00 Intake Total 1066 ml 2000 ml 800 ml 100 ml Output Total 600 ml 300 ml Balance 466 ml 2000 ml 500 ml 100 ml Intake Oral 240 ml 1000 ml 200 ml IV Total 826 ml 1000 ml 600 ml 100 ml Output Urine Total 600 ml 300 ml Drainage Total 0 ml # Voids 4 # Bowel Movements 0 3 4 Imaging Last Impressions Abdomen/Pelvis CT 01/29/17 0131 Signed Impressions: Service Date/Time: Sunday, January 29, 2017 02:21 - CONCLUSION: 1. Post surgical changes from left nephrectomy with multifocal areas of subcutaneous emphysema, free intraperitoneal gas, mild ascites about the liver, and air- fluid level within the urinary bladder. At the nephrectomy site, there is a prominent area of fluid measuring almost 5 cm. 2. Bilateral pleural effusions, right greater than left. Dirk Rivera MD CT Angiography 01/28/17 0000 Signed Impressions: Service Date/Time: January 20:27 - CONCLUSION: 1. No pulmonary embolus. 2. Free fluid and free air in the peritoneal cavity. There is subcutaneous air seen. The patient is status post nephrectomy 2 days ago. 3. Mild bilateral pleural effusions with accompanying areas of atelectasis. Fish Albert MD Chest X-Ray 01/26/17 0000 Signed Impressions: Service Date/Time: Thursday, January 26, 2017 14:35 - CONCLUSION: 1. Left subclavian central line distal tip is in the SVC. 2. Extensive chest wall and supraclavicular subcutaneous emphysema from uncertain etiology. No pneumothorax is identified. Fish Gage MD Laboratory Test 01/28/17 18:55 01/28/17 19:10 01/29/17 00:10 01/29/17 01:10 Blood Gas Puncture Site LT RADIAL Blood Gas Patient Temperature 98.6 Blood Gas HCO3 26 mmol/L Blood Gas Base Excess 2.6 mmol/L Blood Gas Oxygen Saturation 87 % Arterial Blood pH 7.46 Arterial Blood Partial Pressure CO2 37 mmHg Arterial Blood Partial Pressure O2 51 mmHg Arterial Blood Oxygen Content 10.7 Vol % Arterial Blood Carboxyhemoglobin 2.0 % Arterial Blood Methemoglobin 0.8 % Blood Gas Hemoglobin 8.7 G/DL Blood Gas Inspired Oxygen 21 % White Blood Count 14.7 TH/MM3 Red Blood Count 2.93 MIL/MM3 Hemoglobin 8.3 GM/DL Hematocrit 24.9 % Mean Corpuscular Volume 85.1 FL Mean Corpuscular Hemoglobin 28.2 PG Mean Corpuscular Hemoglobin Concent 33.1 % Red Cell Distribution Width 14.1 % Platelet Count 184 TH/MM3 Mean Platelet Volume 7.7 FL Neutrophils (%) (Auto) 88.4 % Lymphocytes (%) (Auto) 4.1 % Monocytes (%) (Auto) 7.3 % Eosinophils (%) (Auto) 0.0 % Basophils (%) (Auto) 0.2 % Neutrophils # (Auto) 13.0 TH/MM3 Lymphocytes # (Auto) 0.6 TH/MM3 Monocytes # (Auto) 1.1 TH/MM3 Eosinophils # (Auto) 0.0 TH/MM3 Basophils # (Auto) 0.0 TH/MM3 CBC Comment DIFF FINAL Differential Comment Blood Urea Nitrogen 17 MG/DL Creatinine 0.74 MG/DL Random Glucose 123 MG/DL Calcium Level 7.5 MG/DL Sodium Level 141 MEQ/L Potassium Level 2.9 MEQ/L Chloride Level 111 MEQ/L Carbon Dioxide Level 24.9 MEQ/L Anion Gap 5 MEQ/L Estimat Glomerular Filtration Rate 80 ML/MIN Magnesium Level 1.7 MG/DL B-Type Natriuretic Peptide 287 PG/ML Lactic Acid Level 1.1 mmol/L Stool C. difficile Toxin (PCR) POSITIVE Stl C. difficile Toxin Epiderm 027 PRESUMPTIVE NEGATIVE Test 01/29/17 06:00 01/29/17 06:25 01/29/17 08:15 White Blood Count 11.2 TH/MM3 Red Blood Count 2.77 MIL/MM3 Hemoglobin 8.1 GM/DL Hematocrit 23.8 % Mean Corpuscular Volume 86.1 FL Mean Corpuscular Hemoglobin 29.2 PG Mean Corpuscular Hemoglobin Concent 33.9 % Red Cell Distribution Width 14.1 % Platelet Count 140 TH/MM3 Mean Platelet Volume 7.7 FL Blood Urea Nitrogen 15 MG/DL 14 MG/DL Creatinine 0.78 MG/DL 0.79 MG/DL Random Glucose 139 MG/DL 134 MG/DL Calcium Level 8.2 MG/DL 8.5 MG/DL Sodium Level 139 MEQ/L 142 MEQ/L Potassium Level 3.4 MEQ/L 4.2 MEQ/L Chloride Level 108 MEQ/L 110 MEQ/L Carbon Dioxide Level 26.4 MEQ/L 25.7 MEQ/L Anion Gap 5 MEQ/L 6 MEQ/L Estimat Glomerular Filtration Rate 75 ML/MIN 74 ML/MIN Total Protein 5.6 GM/DL Albumin 2.1 GM/DL Alkaline Phosphatase 78 U/L Aspartate Amino Transf (AST/SGOT) 18 U/L Alanine Aminotransferase (ALT/SGPT) 8 U/L Total Bilirubin 0.4 MG/DL Urine Color YELLOW Urine Turbidity CLEAR Urine pH 6.0 Urine Specific [place] 1.032 Urine Protein 100 mg/dL Urine Glucose (UA) TRACE mg/dL Urine Ketones NEG mg/dL Urine Occult Blood SMALL Urine Nitrite NEG Urine Bilirubin NEG Urine Urobilinogen LESS THAN 2.0 MG/DL Urine Leukocyte Esterase SMALL Urine RBC 10-14 /hpf Urine WBC 25-49 /hpf Urine Squamous Epithelial Cells 6-8 /hpf Urine Amorphous Sediment FEW Urine Bacteria FEW /hpf Microscopic Urinalysis Comment CULTURE INDICATED Date/Time Source Procedure Growth Status 01/29/17 06:25 Blood Peripheral Aerobic Blood Culture Pending Received 01/29/17 06:25 Blood Peripheral Anaerobic Blood Culture Pending Received 01/29/17 01:10 Stool Stool Pending Received 01/29/17 08:15 Urine Clean Catch Urine Culture Pending Received Physical Examination HEENT: PERRL normocephalic; atraumatic; no jaundice. CHEST: CTA CARDIAC: RRR ABDOMEN: Soft, nondistended, TTP over surgical incision cites; no hepatosplenomegaly; bowel sounds are present in all four quadrants. midline incision dressing, LLQ dressings D&I EXTREMITIES: No clubbing, cyanosis, or edema. SKIN: Normal; no rash; no jaundice. INTENSIVE CARE MEDICINE SPECIALIST: No focal deficits; alert and oriented times three. (Laurita Lanier) Assessment and Plan Plan ASSESSMENT - anemia - normocytic. relatively stable over last few days. hgb 8.1 today. was 10 on 01/29. reports episode black tarry stool and intermittent BRBPR in last couple weeks. Last colonoscopy 2007, EGD [address] showed intraperitoneal free gas, mild ascites about liver - c diff diarrhea - on flagyl - hypokalemia, PNA, sepsis, s/p radical nephrectomy per primary PLAN - consider EGD colonoscopy wednesday or early next week - monitor HH - transfuse as needed - PPI - continue flagyl - CHAVO - notify GI of active bleeding - supportive care This pt seen by myself and Dr Harvey and this note is written on his behalf (Laurita Lanier) Physician Comments Patient seen and examined Agree with above Continue with current supportive care Monitor labs EGD with colonoscopy to be done early next week (Colin Harvey MD) Laurita Lanier Jan 29, 2017 16:55 Colin Harvey MD Jan 29, 2017 22:17
[2017-01-29 17:34] LABS: HEMATOCRIT 22.4 % (35.0-46.0); REVIEW FLAG FINAL
[2017-01-30] VITALS (12 sets, daily range): BP systolic 118–134; BP diastolic 60–100; PULSE 73–109; RESP 18–20; TEMP 96.7–99.3; O2SAT 99–100
[2017-01-30] MEDS: RESP: ALBUTEROL 2.5 MG/IPRATROPIUM 0.5 MG NEB (SCH) NEB ×6 (00:26→20:15)
[2017-01-30] MEDS: CEFEPIME INJ 2,000 MG in SODIUM CHLORIDE 0.9% INJ 100 ML IV SCH ×3 (00:34→19:58)
[2017-01-30] MEDS: oxyCODONE/ACETAMINOPHEN 10 MG/325 MG TAB PO PRN ×4 (00:37→18:25)
[2017-01-30] MEDS: metroNIDAZOLE 500 MG TAB PO SCH ×3 (04:55→19:58)
[2017-01-30] MEDS: LEVOTHYROXINE SODIUM 88 MCG TAB PO SCH (04:55)
[2017-01-30] MEDS: METOPROLOL TARTRATE 50 MG TAB PO SCH ×3 (09:25→20:12)
[2017-01-30] MEDS: ENOXAPARIN SODIUM 30 MG/0.3 ML SYRINGE SQ SCH ×2 (09:25→19:58)
[2017-01-30] MEDS: FAMOTIDINE 20 MG TAB PO SCH (09:26)
[2017-01-30 10:06] LABS: HEMATOCRIT 22.6 % (35.0-46.0); MEAN CELL VOLUME 85.7 FL (80.0-100.0); MEAN CORPUSCULAR HGB CONC 33.8 % (32.0-36.0); PLATELET COUNT 160 TH/MM3 (150-450); RED BLOOD COUNT 2.64 MIL/MM3 (4.00-5.30); REVIEW FLAG FINAL; WHITE BLOOD COUNT 8.6 TH/MM3 (4.0-11.0)
[2017-01-30 10:34] LABS: POTASSIUM 3.1 MEQ/L (3.5-5.1)
--- NOTE | 2017-01-30 14:11 | HHI.GIFU ---
Subjective Remarks Pt OOB to recliner, eating lunch. c/o SOB when eating, says she gets like that when her hgb is low. Having some melanotic stool overnight per nursing report. No active bleeding. (Laurita Lanier) Objective Vitals I&O Vital Signs Date Time Temp Pulse Resp B/P (MAP) Pulse Ox O2 Delivery O2 Flow Rate FiO2 01/30/17 12:00 96.9 80 20 118/68 (85) 100 01/30/17 09:15 98 Nasal Cannula 2.00 01/30/17 08:01 99 Nasal Cannula 2.00 01/30/17 08:00 96.9 96 19 127/63 (84) 100 01/30/17 04:00 96.7 109 18 134/100 (111) 100 01/30/17 00:53 97.4 96 18 119/73 (88) 100 01/29/17 21:20 99 Nasal Cannula 2.00 01/29/17 20:29 98 Nasal Cannula 2.00 01/29/17 20:21 100 01/29/17 20:00 97.3 97 16 111/59 (76) 99 01/29/17 16:00 97.6 85 17 128/75 (92) 100 I/O 01/29/17 01/29/17 01/29/17 01/30/17 01/30/17 01/30/17 07:00 15:00 23:00 07:00 15:00 23:00 Intake Total 800 ml 1099 ml 1480 ml 220 ml Output Total 300 ml Balance 500 ml 1099 ml 1480 ml 220 ml Intake Oral 200 ml 630 ml 120 ml IV Total 600 ml 1099 ml 850 ml 100 ml Output Urine Total 300 ml # Voids 4 # Bowel Movements 3 4 6 Laboratory Laboratory Tests Test 01/29/17 17:00 01/30/17 09:45 Hemoglobin 7.4 7.6 Hematocrit 22.4 22.6 White Blood Count 8.6 Red Blood Count 2.64 Mean Corpuscular Volume 85.7 Mean Corpuscular Hemoglobin 29.0 Mean Corpuscular Hemoglobin Concent 33.8 Red Cell Distribution Width 14.0 Platelet Count 160 Mean Platelet Volume 7.8 Blood Urea Nitrogen 13 Creatinine 0.91 Random Glucose 134 Calcium Level 8.1 Sodium Level 141 Potassium Level 3.1 Chloride Level 109 Carbon Dioxide Level 26.0 Anion Gap 6 Estimat Glomerular Filtration Rate 63 Date/Time Source Procedure Growth Status 01/29/17 06:25 Blood Peripheral Aerobic Blood Culture - Preliminary NO GROWTH IN 1 DAY Resulted 01/29/17 06:25 Blood Peripheral Anaerobic Blood Culture - Preliminary NO GROWTH IN 1 DAY Resulted 01/29/17 01:10 Stool Stool - Final NO ENTERIC PATHOGENS DETECTED BY PCR... Complete 01/29/17 08:15 Urine Clean Catch Urine Culture - Preliminary NO GROWTH IN 24 HOURS. Resulted Physical Exam HEENT: PERRL; normocephalic; atraumatic; no jaundice. CHEST: CTA, diminshed CARDIAC: RRR ABDOMEN: Soft, nondistended, tender over incisions; no hepatosplenomegaly; bowel sounds are present in all four quadrants. EXTREMITIES: No clubbing, cyanosis, or edema. SKIN: Normal; no rash; no jaundice. INFORMATION TECHNOLOGY SECURITY ANALYST: No focal deficits; alert and oriented times three. (Laurita Lanier) Assessment and Plan Plan ASSESSMENT - anemia - normocytic. relatively stable over last few days. reports episode black tarry stool and intermittent BRBPR in last couple weeks. Last colonoscopy 2007, EGD [address] showed intraperitoneal free gas, mild ascites about liver. EGD/colonoscopy wednesday. Hgb trending down, having melanotic stools. blood transfusion ordered and pending, d/w RN - c diff diarrhea - on flagyl - hypokalemia, PNA, sepsis, s/p radical nephrectomy per primary PLAN - consider EGD colonoscopy wednesday or early next week - monitor HH - transfuse as needed; tranfusion currently pending - PPI - continue flagyl - CHAVO - notify GI of active bleeding - supportive care This pt seen by myself and Dr Harvey and this note is written on his behalf (Laurita Lanier) Physician Comments Patient seen and examined Agree with above Continue with current supportive care Monitor labs Case discussed with Dr. Cavazos we should hold off on endoscopy at this point Patient follow up with GI post discharge We will sign off (Colin Harvey MD) Laurita Lanier Jan 30, 2017 14:11 Colni Harvey MD Jan 30, 2017 23:23
[2017-01-30] MEDS ORDERED: SODIUM CHLOR 0.9% 250 ML INJ 250 ML IV ONE (14:30)
[2017-01-30] MEDS: POTASSIUM CHLOR 40 MEQ PREMIX 100 ML IV SCH ×3 (14:33→21:39)
[2017-01-30] MEDS: LACTATED RINGER'S 1000 ML INJ 1,000 ML IV SCH ×2 (14:33→17:45)
--- NOTE | 2017-01-30 14:34 | HHI.PR ---
Subjective Remarks Stool is forming. Frequency decreasing. Still some SOB Objective Vitals Vital Signs Date Time Temp Pulse Resp B/P (MAP) Pulse Ox O2 Delivery O2 Flow Rate FiO2 01/30/17 12:00 96.9 80 20 118/68 (85) 100 01/30/17 09:15 98 Nasal Cannula 2.00 01/30/17 08:01 99 Nasal Cannula 2.00 01/30/17 08:00 96.9 96 19 127/63 (84) 100 01/30/17 04:00 96.7 109 18 134/100 (111) 100 01/30/17 00:53 97.4 96 18 119/73 (88) 100 01/29/17 21:20 99 Nasal Cannula 2.00 01/29/17 20:29 98 Nasal Cannula 2.00 01/29/17 20:21 100 01/29/17 20:00 97.3 97 16 111/59 (76) 99 01/29/17 16:00 97.6 85 17 128/75 (92) 100 I/O 01/29/17 01/29/17 01/29/17 01/30/17 01/30/17 01/30/17 07:00 15:00 23:00 07:00 15:00 23:00 Intake Total 800 ml 1099 ml 1480 ml 220 ml Output Total 300 ml Balance 500 ml 1099 ml 1480 ml 220 ml Intake Oral 200 ml 630 ml 120 ml IV Total 600 ml 1099 ml 850 ml 100 ml Output Urine Total 300 ml # Voids 4 # Bowel Movements 3 4 6 Result Diagram: 01/30/1745 01/30/1745 Objective Remarks GENERAL: No acute distress. CARDIOVASCULAR: Regular rate and rhythm. RESPIRATORY: No accessory muscle use. Diminished breath sounds bilaterally at the bases. GASTROINTESTINAL: Abdomen soft, non-tender, nondistended. MUSCULOSKELETAL: Extremities without clubbing, cyanosis, or edema. No obvious deformities. NEUROLOGICAL: Awake and alert. Normal speech. PSYCHIATRIC: Appropriate mood and affect; insight and judgment normal. Procedures 01/26/17 left radical nephrectomy A/P Problem List: (1) Pneumonia ICD Code: J18.9 - Pneumonia, unspecified organism (2) Sepsis ICD Code: A41.9 - Sepsis, unspecified organism (3) Abdominal pain ICD Code: R10.9 - Abdominal pain Status: Acute (4) Diarrhea ICD Code: R19.7 - Diarrhea, unspecified (5) Status post nephrectomy ICD Code: Z90.5 - Acquired absence of kidney (6) Hypokalemia ICD Code: E87.6 - Hypokalemia Status: Acute (7) C. difficile diarrhea ICD Code: A04.72 - Enterocolitis due to Clostridium difficile, not specified as recurrent Assessment and Plan 61 Y/O female s/p radical left nephrectomy. Patient developed SOB and there were concern for sepsis, pneumonia. Cdiff is positive SOB/Concern for sepsis: Probably secondary to C-diff. ?PNA. - Continue antibiotics Cefepime and Flagyl - repeat chest x-ray in AM and consider dc antibiotics in light of Cdiff. - Encourage IS C. difficile diarrhea: Continue Flagyl. Continue IV fluids. Status post left radical nephrectomy: Management per urology. - Agree with transfusion. Will probably help with SOB as well Problem Qualifiers (1) Sepsis: Qualified Codes: A41.9 - Sepsis, unspecified organism Joseph Nichole MD Jan 30, 2017 14:34
--- NOTE | 2017-01-30 14:42 | HHI.PR ---
Subjective Patient symptoms today Pt seen and examined. Hgb at 7.6. VSS. Pain controlled. Ambulating. Pt with h/o hemorrhoids in the past which bleed at times. Objective Vital Signs Vital Signs Date Time Temp Pulse Resp B/P (MAP) Pulse Ox O2 Delivery O2 Flow Rate FiO2 01/30/17 12:00 96.9 80 20 118/68 (85) 100 01/30/17 09:15 98 Nasal Cannula 2.00 01/30/17 08:01 99 Nasal Cannula 2.00 01/30/17 08:00 96.9 96 19 127/63 (84) 100 01/30/17 04:00 96.7 109 18 134/100 (111) 100 01/30/17 00:53 97.4 96 18 119/73 (88) 100 01/29/17 21:20 99 Nasal Cannula 2.00 01/29/17 20:29 98 Nasal Cannula 2.00 01/29/17 20:21 100 01/29/17 20:00 97.3 97 16 111/59 (76) 99 01/29/17 16:00 97.6 85 17 128/75 (92) 100 Intake & Output 01/30/17 01/30/17 07:00 19:00 Intake Total 750 ml 220 ml Balance 750 ml 220 ml Intake Oral 120 ml IV Total 750 ml 100 ml Result Diagram: 01/30/1794401/30/17944 Objective Remarks Abd: soft,nd, incisional tenderness Naidu with clear urine Dressing intact 01/28 Abd: soft,nd, incisional tenderness Naidu with clear urine Dressing intact 01/29 CV: sinus tach Lungs: decreased BS Abd:soft,nd, some incisional tenderness Ext: neg C/C/E 01/30 Abd:soft,nt,nd Wounds: clean and dry Medications and IVs Current Medications Medications (Trade) Dose Ordered Sig/Debora Route Start Time Stop Time Status Last Admin Lactated Ringer's 1,000 ml @ 100 mls/hr Q10H IV 01/26/17 13:45 01/30/17 14:33 (Zofran Inj) 4 mg Q6HR PRN IV PUSH 01/26/17 13:45 01/27/17 08:59 (Tylenol 650 Mg/ 20 ml Liq) 650 mg Q6H PRN PO 01/26/17 13:45 (Synthroid) 88 mcg DAILY@0600 PO 01/27/17 06:00 01/30/17 04:55 (Lopressor) 50 mg Q12HR PO 01/26/17 21:00 01/30/17 09:25 (Pepcid) 20 mg DAILY PO 01/27/17 09:00 01/30/17 09:26 (Percocet 10-325 Mg) 1 tab Q6H PRN PO 01/26/17 13:45 01/30/17 12:38 (Duoneb Neb) 1 ampule Q4HR NEB PRN NEB 01/28/17 19:15 (Lovenox Inj) 30 mg Q12HR SQ 01/28/17 21:15 01/30/17 09:25 (Duoneb Neb) 1 ampule Q4HR NEB NEB 01/29/17 00:00 01/30/17 14:06 (Flagyl) 500 mg Q8H PO 01/29/17 04:00 01/30/17 12:39 (Dilaudid Pf Inj) 1 mg Q4H PRN IV PUSH 01/29/17 11:00 Cefepime HCl 2000 mg/Sodium Chloride 100 ml @ 200 mls/hr Q12H IV 01/30/17 21:00 Potassium Chloride 100 ml @ 25 mls/hr Q4H IV 01/30/17 14:00 01/31/17 01:59 01/30/17 14:33 Sodium Chloride 250 ml @ 15 mls/hr ONCE ONCE IV 01/30/17 14:30 01/31/17 07:09 Assessment and Plan Assessment and Plan Stable s/p left radical nephrectomy OOB/Ambulation PT consult Pain controlled. 01/28 Stable POD#2 left radical nephrectomy OOB/Ambulation D/C EVELYN and rafaela today Full liquid diet 01/29 S/P left [place] lap radical nephrectomy Continue Duonebs Medicine input appreciated Cefepime Check stool culture for C. 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
[2017-01-31] VITALS (9 sets, daily range): BP systolic 125–148; BP diastolic 60–75; PULSE 73–104; RESP 16–18; TEMP 96.7–99.9; O2SAT 92–100
[2017-01-31] MEDS: oxyCODONE/ACETAMINOPHEN 10 MG/325 MG TAB PO PRN ×4 (00:13→20:14)
[2017-01-31] MEDS: ONDANSETRON HCL 4 MG/2 ML VIAL IV PUSH PRN (00:13)
[2017-01-31] MEDS: LACTATED RINGER'S 1000 ML INJ 1,000 ML IV SCH (03:45)
[2017-01-31] MEDS: metroNIDAZOLE 500 MG TAB PO SCH ×3 (04:00→20:15)
[2017-01-31] MEDS: RESP: ALBUTEROL 2.5 MG/IPRATROPIUM 0.5 MG NEB (SCH) NEB ×6 (04:00→19:30)
[2017-01-31] MEDS: LEVOTHYROXINE SODIUM 88 MCG TAB PO SCH (04:35)
--- NOTE | 2017-01-31 05:34 | RADRPT ---
EXAM DATE/TIME: 01/31/2017 04:02 [facility] COMPARISON: CHEST SINGLE AP, January 26, 2017, 14:35. INDICATIONS : Shortness of Breath MEDICAL HISTORY : DiverticulitisCardiovascular disease. Hypertension. Chronic obstructive pulmonary Disease SURGICAL HISTORY : Hysterectomy. Nephrectomy, left. ENCOUNTER: Subsequent ACUITY: 4 - 6 days PAIN SCORE: 0/10 LOCATION: Bilateral chest FINDINGS: Interval development of consolidation in the left lower lobe with loss of delineation of the entire l eft hemidiaphragm and air bronchograms. The right lung is clear. The heart is normal size. Left jc bclavian catheter tip projects over the proximal superior vena cava. CONCLUSION: Interval development of left lower lobe consolidation. Dirk Rivera MD on January 31, 2017 at 5:31 Board Certified Radiologist. This report was verified electronically.
[2017-01-31 05:55] LABS: POTASSIUM 5.2 MEQ/L (3.5-5.1)
[2017-01-31 06:04] LABS: HEMATOCRIT 23.7 % (35.0-46.0); MEAN CELL VOLUME 85.8 FL (80.0-100.0); MEAN CORPUSCULAR HEMOGLOBIN 28.1 PG (27.0-34.0); MEAN CORPUSCULAR HGB CONC 32.7 % (32.0-36.0); PLATELET COUNT 159 TH/MM3 (150-450); RED BLOOD COUNT 2.77 MIL/MM3 (4.00-5.30); RED CELL DISTRIBUTION WIDTH 14.5 % (11.6-17.2); REVIEW FLAG FINAL; WHITE BLOOD COUNT 7.9 TH/MM3 (4.0-11.0)
[2017-01-31] MEDS: METOPROLOL TARTRATE 50 MG TAB PO SCH ×2 (08:35→20:15)
[2017-01-31] MEDS: ENOXAPARIN SODIUM 30 MG/0.3 ML SYRINGE SQ SCH ×2 (08:35→20:15)
[2017-01-31] MEDS: CEFEPIME INJ 2,000 MG in SODIUM CHLORIDE 0.9% INJ 100 ML IV SCH (08:35)
[2017-01-31] MEDS: FAMOTIDINE 20 MG TAB PO SCH (08:35)
--- NOTE | 2017-01-31 12:18 | HHI.PR ---
Subjective Remarks SOB better this morning. X ray shows some consolidation on the side of the nephrectomy. Afebrile. No cough. H&H stable Less frequent stool. More consistency. Objective Vitals Vital Signs Date Time Temp Pulse Resp B/P (MAP) Pulse Ox O2 Delivery O2 Flow Rate FiO2 01/31/17 08:00 97.2 77 18 138/64 (88) 99 01/31/17 07:45 100 Nasal Cannula 2.00 01/31/17 04:46 96.9 82 18 125/62 (83) 98 01/31/17 00:20 97.0 73 18 130/62 (84) 99 01/30/17 23:31 97.0 73 18 130/60 01/30/17 21:20 96.8 87 18 130/61 01/30/17 20:48 99.3 94 18 127/66 100 01/30/17 20:19 99 Nasal Cannula 2.00 01/30/17 20:07 Nasal Cannula 2.00 01/30/17 20:00 99.3 94 18 127/66 (86) 100 01/30/17 19:55 102 01/30/17 15:56 97.7 105 19 127/66 (86) 100 I/O 01/30/17 01/30/17 01/30/17 01/31/17 01/31/17 01/31/17 07:00 15:00 23:00 07:00 15:00 23:00 Intake Total 220 ml 1500 ml 1430 ml Output Total 1400 ml 600 ml Balance 220 ml 100 ml 830 ml Intake Oral 120 ml 1200 ml IV Total 100 ml 300 ml 800 ml Packed Cells 630 ml Output Urine Total 600 ml 600 ml Stool Total 800 ml # Voids 2 # Bowel Movements 2 Result Diagram: 01/31/175 01/31/175 Procedures 01/26/17 left radical nephrectomy A/P Problem List: (1) Pneumonia ICD Code: J18.9 - Pneumonia, unspecified organism (2) Sepsis ICD Code: A41.9 - Sepsis, unspecified organism (3) Abdominal pain ICD Code: R10.9 - Abdominal pain Status: Acute (4) Diarrhea ICD Code: R19.7 - Diarrhea, unspecified (5) Status post nephrectomy ICD Code: Z90.5 - Acquired absence of kidney (6) Hypokalemia ICD Code: E87.6 - Hypokalemia Status: Acute (7) C. difficile diarrhea ICD Code: A04.72 - Enterocolitis due to Clostridium difficile, not specified as recurrent Assessment and Plan 61 Y/O female s/p radical left nephrectomy. Patient developed SOB and there were concern for sepsis, pneumonia. Cdiff is positive SOB/Concern for sepsis: Probably secondary to C-diff. ?PNA. - Continue antibiotics Cefepime and Flagyl - Obtain oxygen walk test. May need home oxygen Follow up H&H and K DW Dr. Cavazos. Not unusual to have atelectasis post nephrectomy on the same side.I am not convince she truly has PNA. In light of C diff. Will stop antibiotics and monitor off antibiotics. Continue Flagyl for C diff. Encourage ambulation and IS. Monitor overnight. C. difficile diarrhea: Continue Flagyl. Continue IV fluids. Status post left radical nephrectomy: Management per urology. -Follow up H&H Problem Qualifiers (1) Sepsis: Qualified Codes: A41.9 - Sepsis, unspecified organism Joseph Nichole MD Jan 31, 2017 12:18
[2017-01-31] MEDS ORDERED: AZITHROMYCIN 250 MG TAB PO ONE (12:30)
--- NOTE | 2017-01-31 12:33 | HHI.PR ---
Subjective Patient symptoms today Pt seen and examined. Feeling better. SOB improved. Diarrhea improving. Objective Vital Signs Vital Signs Date Time Temp Pulse Resp B/P (MAP) Pulse Ox O2 Delivery O2 Flow Rate FiO2 01/31/17 08:00 97.2 77 18 138/64 (88) 99 01/31/17 07:45 100 Nasal Cannula 2.00 01/31/17 04:46 96.9 82 18 125/62 (83) 98 01/31/17 00:20 97.0 73 18 130/62 (84) 99 01/30/17 23:31 97.0 73 18 130/60 01/30/17 21:20 96.8 87 18 130/61 01/30/17 20:48 99.3 94 18 127/66 100 01/30/17 20:19 99 Nasal Cannula 2.00 01/30/17 20:07 Nasal Cannula 2.00 01/30/17 20:00 99.3 94 18 127/66 (86) 100 01/30/17 19:55 102 01/30/17 15:56 97.7 105 19 127/66 (86) 100 Intake & Output 01/31/17 01/31/17 07:00 19:00 Intake Total 1630 ml Output Total 600 ml Balance 1030 ml IV Total 1000 ml Packed Cells 630 ml Output Urine Total 600 ml # Voids 2 # Bowel Movements 2 Result Diagram: 01/31/1741401/31/17 0415 Imaging Last 24 hours Impressions Chest X-Ray 01/31/17 0600 Signed Impressions: Service Date/Time: Tuesday, January 31, 2017 04:02 - CONCLUSION: Interval development of left lower lobe consolidation. Dirk Rivera MD Objective Remarks Abd: soft,nd, incisional tenderness Naidu with clear urine Dressing intact 01/28 Abd: soft,nd, incisional tenderness Naidu with clear urine Dressing intact 01/29 CV: sinus tach Lungs: decreased BS Abd:soft,nd, some incisional tenderness Ext: neg C/C/E 01/30 Abd:soft,nt,nd Wounds: clean and dry 01/31 Abd:soft,nt,nd Wounds: clean and dry Medications and IVs Current Medications Medications (Trade) Dose Ordered Sig/Debora Route Start Time Stop Time Status Last Admin (Zofran Inj) 4 mg Q6HR PRN IV PUSH 01/26/17 13:45 01/31/17 00:13 (Tylenol 650 Mg/ 20 ml Liq) 650 mg Q6H PRN PO 01/26/17 13:45 (Synthroid) 88 mcg DAILY@0600 PO 01/27/17 06:00 01/31/17 04:35 (Lopressor) 50 mg Q12HR PO 01/26/17 21:00 01/31/17 08:35 (Pepcid) 20 mg DAILY PO 01/27/17 09:00 01/31/17 08:35 (Percocet 10-325 Mg) 1 tab Q6H PRN PO 01/26/17 13:45 01/31/17 07:22 (Duoneb Neb) 1 ampule Q4HR NEB PRN NEB 01/28/17 19:15 (Lovenox Inj) 30 mg Q12HR SQ 01/28/17 21:15 01/31/17 08:35 (Duoneb Neb) 1 ampule Q4HR NEB NEB 01/29/17 00:00 01/31/17 11:08 (Flagyl) 500 mg Q8H PO 01/29/17 04:00 01/31/17 11:47 (Dilaudid Pf Inj) 1 mg Q4H PRN IV PUSH 01/29/17 11:00 Assessment and Plan Assessment and Plan Stable s/p left radical nephrectomy OOB/Ambulation PT consult Pain controlled. 01/28 Stable POD#2 left radical nephrectomy OOB/Ambulation D/C EVELYN and rafaela today Full liquid diet 01/29 S/P left [place] lap radical nephrectomy Continue Duonebs Medicine input appreciated Cefepime Check stool culture for C. 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 Angel Cavazos DO Jan 31, 2017 12:33
[2017-01-31] MEDS ORDERED: CEFUROXIME AXETIL 500 MG TAB PO SCH (21:00)
[2017-02-01] MEDS: RESP: ALBUTEROL 2.5 MG/IPRATROPIUM 0.5 MG NEB (SCH) NEB ×5 (00:38→15:38)
[2017-02-01 00:47] VITALS: BP 136/64; PULSE 84; RESP 18; TEMP 98.2; O2SAT 92
[2017-02-01] MEDS: oxyCODONE/ACETAMINOPHEN 10 MG/325 MG TAB PO PRN ×3 (02:07→15:05)
[2017-02-01] MEDS: LEVOTHYROXINE SODIUM 88 MCG TAB PO SCH (04:16)
[2017-02-01] MEDS: metroNIDAZOLE 500 MG TAB PO SCH ×2 (04:16→12:33)
[2017-02-01 04:42] VITALS: BP 144/89; PULSE 89; RESP 18; TEMP 96.9; O2SAT 93
[2017-02-01 06:07] LABS: HEMATOCRIT 24.4 % (35.0-46.0); MEAN CELL VOLUME 85.1 FL (80.0-100.0); MEAN CORPUSCULAR HEMOGLOBIN 28.3 PG (27.0-34.0); MEAN CORPUSCULAR HGB CONC 33.2 % (32.0-36.0); PLATELET COUNT 188 TH/MM3 (150-450); RED BLOOD COUNT 2.87 MIL/MM3 (4.00-5.30); RED CELL DISTRIBUTION WIDTH 14.3 % (11.6-17.2); REVIEW FLAG FINAL
[2017-02-01 06:35] LABS: BICARBONATE 27.5 MEQ/L (21.0-32.0); POTASSIUM 4.6 MEQ/L (3.5-5.1)
[2017-02-01 08:00] VITALS: BP 149/66; PULSE 93; RESP 19; TEMP 97.9; O2SAT 95
[2017-02-01 08:02] VITALS: PULSE 86
[2017-02-01] MEDS: ONDANSETRON HCL 4 MG/2 ML VIAL IV PUSH PRN (08:04)
[2017-02-01] MEDS ORDERED: AZITHROMYCIN 250 MG TAB PO SCH (09:00)
[2017-02-01] MEDS: ENOXAPARIN SODIUM 30 MG/0.3 ML SYRINGE SQ SCH (09:06)
[2017-02-01] MEDS: FAMOTIDINE 20 MG TAB PO SCH (09:06)
[2017-02-01] MEDS: METOPROLOL TARTRATE 50 MG TAB PO SCH (09:06)
[2017-02-01 10:29] VITALS: O2SAT 97
[2017-02-01 11:49] VITALS: BP 150/67; PULSE 88; RESP 19; TEMP 98.6; O2SAT 95
--- NOTE | 2017-02-01 12:29 | HHI.PR ---
Subjective Patient symptoms today Pt feels well. SOB and diarrhea has resolved. Central line is out. Objective Vital Signs Vital Signs Date Time Temp Pulse Resp B/P (MAP) Pulse Ox O2 Delivery O2 Flow Rate FiO2 02/01/17 11:49 98.6 88 19 150/67 (94) 95 02/01/17 10:29 97 02/01/17 08:00 Room Air 02/01/17 08:00 97.9 93 19 149/66 (93) 95 02/01/17 04:42 96.9 89 18 144/89 (107) 93 02/01/17 00:47 98.2 84 18 136/64 (88) 92 01/31/17 20:00 99.9 104 18 148/67 (94) 92 01/31/17 19:58 97 01/31/17 18:34 97 01/31/17 16:00 99.4 93 16 132/60 (84) 98 Intake & Output 02/01/17 02/01/17 07:00 19:00 Intake Total 120 ml Output Total 900 ml Balance -900 ml 120 ml Intake Oral 120 ml Output Urine Total 900 ml # Voids 8 Result Diagram: 02/01/17 0600 02/01/17 0600 Objective Remarks Abd: soft,nd, incisional tenderness Naidu with clear urine Dressing intact 01/28 Abd: soft,nd, incisional tenderness Naidu with clear urine Dressing intact 01/29 CV: sinus tach Lungs: decreased BS Abd:soft,nd, some incisional tenderness Ext: neg C/C/E 01/30 Abd:soft,nt,nd Wounds: clean and dry 01/31 Abd:soft,nt,nd Wounds: clean and dry 02/01 Abd:soft,nt,nd Wounds: clean and dry Medications and IVs Current Medications Medications (Trade) Dose Ordered Sig/Debora Route Start Time Stop Time Status Last Admin (Zofran Inj) 4 mg Q6HR PRN IV PUSH 01/26/17 13:45 02/01/17 08:04 (Tylenol 650 Mg/ 20 ml Liq) 650 mg Q6H PRN PO 01/26/17 13:45 (Synthroid) 88 mcg DAILY@0600 PO 01/27/17 06:00 02/01/17 04:16 (Lopressor) 50 mg Q12HR PO 01/26/17 21:00 02/01/17 09:06 (Pepcid) 20 mg DAILY PO 01/27/17 09:00 02/01/17 09:06 (Percocet 10-325 Mg) 1 tab Q6H PRN PO 01/26/17 13:45 02/01/17 09:06 (Duoneb Neb) 1 ampule Q4HR NEB PRN NEB 01/28/17 19:15 (Lovenox Inj) 30 mg Q12HR SQ 01/28/17 21:15 02/01/17 09:06 (Duoneb Neb) 1 ampule Q4HR NEB NEB 01/29/17 00:00 02/01/17 10:29 (Flagyl) 500 mg Q8H PO 01/29/17 04:00 02/01/17 04:16 (Dilaudid Pf Inj) 1 mg Q4H PRN IV PUSH 01/29/17 11:00 Assessment and Plan Assessment and Plan Stable s/p left radical nephrectomy OOB/Ambulation PT consult Pain controlled. 01/28 Stable POD#2 left radical nephrectomy OOB/Ambulation D/C EVELYN and rafaela today Full liquid diet 01/29 S/P left [place] lap radical nephrectomy Continue Duonebs Medicine input appreciated Cefepime Check stool culture for C. 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 02/01 Stable s/p left [place] lap Nx Discharge home today Angel Cavazos DO Feb 01, 2017 12:29
--- NOTE | 2017-02-01 12:36 | HHI.FF ---
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 My clinical findings support the need for the requested home health care services because: Ltd mobility - disease progression Patient has SOB I certify that my clinical findings support that this patient is homebound because: Post-op weakness Hx COPD- exertion dyspnea/weakness Angel Cavazos DO Feb 01, 2017 12:36
[2017-02-01] MEDS ORDERED: METR-1 PO ×2 (13:09→15:56)
[2017-02-01] MEDS ORDERED: PERC10TA27 PO (13:10)
--- NOTE | 2017-02-01 14:26 | HHI.PR ---
Subjective Remarks Patient reports she is feeling much better. Stable on room air. Less frequent stool. Objective Vitals Vital Signs Date Time Temp Pulse Resp B/P (MAP) Pulse Ox O2 Delivery O2 Flow Rate FiO2 02/01/17 11:49 98.6 88 19 150/67 (94) 95 02/01/17 10:29 97 02/01/17 08:00 Room Air 02/01/17 08:00 97.9 93 19 149/66 (93) 95 02/01/17 04:42 96.9 89 18 144/89 (107) 93 02/01/17 00:47 98.2 84 18 136/64 (88) 92 01/31/17 20:00 99.9 104 18 148/67 (94) 92 01/31/17 19:58 97 01/31/17 18:34 97 01/31/17 16:00 99.4 93 16 132/60 (84) 98 I/O 01/31/17 01/31/17 01/31/17 02/01/17 02/01/17 02/01/17 07:00 15:00 23:00 07:00 15:00 23:00 Intake Total 1430 ml 550 ml 700 ml 120 ml Output Total 600 ml 900 ml Balance 830 ml 550 ml 700 ml -900 ml 120 ml Intake Oral 700 ml 120 ml IV Total 800 ml 550 ml Packed Cells 630 ml Output Urine Total 600 ml 900 ml # Voids 2 4 8 # Bowel Movements 2 3 Result Diagram: 02/01/17 0600 02/01/17 0600 Objective Remarks GENERAL: No acute distress. CARDIOVASCULAR: Regular rate and rhythm. RESPIRATORY: No accessory muscle use. Better air movement. Diminished breath sounds bilaterally at the bases. GASTROINTESTINAL: Abdomen soft, non-tender, nondistended. MUSCULOSKELETAL: Extremities without clubbing, cyanosis, or edema. No obvious deformities. NEUROLOGICAL: Awake and alert. Normal speech. PSYCHIATRIC: Appropriate mood and affect; insight and judgment normal. Procedures 01/26/17 left radical nephrectomy A/P Problem List: (1) Pneumonia ICD Code: J18.9 - Pneumonia, unspecified organism (2) Sepsis ICD Code: A41.9 - Sepsis, unspecified organism (3) Abdominal pain ICD Code: R10.9 - Abdominal pain Status: Acute (4) Diarrhea ICD Code: R19.7 - Diarrhea, unspecified (5) Status post nephrectomy ICD Code: Z90.5 - Acquired absence of kidney (6) Hypokalemia ICD Code: E87.6 - Hypokalemia Status: Acute (7) C. difficile diarrhea ICD Code: A04.72 - Enterocolitis due to Clostridium difficile, not specified as recurrent Assessment and Plan 61 Y/O female s/p radical left nephrectomy. Patient developed SOB and there were concern for sepsis, pneumonia. Cdiff is positive SOB/Concern for sepsis: Probably secondary to C-diff. ?PNA. DW Dr. Cavazos. Not unusual to have atelectasis post nephrectomy on the same side.I am not convince she truly has PNA. In light of C diff. Antibiotics were discontinued and the patient monitored off of antibiotics. She did well and was weaned down to room air. She is discharged on Flagyl to complete treatment for C. difficile colitis. Status post left radical nephrectomy: Management per urology. -Outpatient follow-up Discharge Planning Hospitalist cleared for discharge. Problem Qualifiers (1) Sepsis: Qualified Codes: A41.9 - Sepsis, unspecified organism Joseph Nichole MD Feb 01, 2017 14:26
--- NOTE | 2017-02-02 09:46 | MD ---
cc: HUEY RODRIGUEZ ADMISSION DATE: 01/26/2017 DISCHARGE DATE: 02/01/2017 BRIEF HISTORY Ms. Choudhary is a 61-year-old female who had a nonfunctioning left kidney and underwent left hand-assisted lap nephrectomy on 01/26/2017. HOSPITAL COURSE On postoperative day #1 she was doing well. Her pain was controlled. 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 On hospital day #2, however, she developed some shortness of breath and her sats had dropped. Her blood gas also showed a PO2 in the 50 range. She was sent down for a spiral CT scan which demonstrated no evidence of any pulmonary embolus. She also went on to develop diarrhea and C. difficile which was treated with Flagyl. She was also started on Lovenox for DVT prevention. She had SCDs on throughout the course of her hospitalization. On hospital day #4 she was feeling better. Her shortness of breath was resolving. Her diet was advanced. Throughout the remainder of her hospital course she continued to do well. Her shortness of breath finally resolved as well as her diarrhea improved. DISPOSITION The decision was made to discharge her on 02/01/2017. At that time she was ambulating without difficulty and on her own. She was going to be sent home with home health care for wound observation and vital sign observation. She had done well. She is scheduled to follow-up in the office in a week or two to undergo staple removal. Huey CAMERON/MOON /1:59 PM /9:44 AM
== END 2017-02-01 16:05 | disposition home health service (06) | DRG 659 ==
LOC: HSDI 05:31 → N07A 16:21
PROVIDERS: ADMIT Urology; ATTEND Urology
PROC: 0TP98DZ Removal of Intraluminal Device from Ureter, Via Natural or Artificial Opening Endoscopic (ICD-10-PCS; 2017-01-26)
PROC: 0TT14ZZ Resection of Left Kidney, Percutaneous Endoscopic Approach (ICD-10-PCS; principal; 2017-01-26 08:42)
PROC: 30233N1 Transfusion of Nonautologous Red Blood Cells into Peripheral Vein, Percutaneous Approach (ICD-10-PCS; 2017-01-27)
DX: N20.0 Calculus of kidney (principal); A41.9 Sepsis, unspecified organism; J90 Pleural effusion, not elsewhere classified; J18.9 Pneumonia, unspecified organism; A04.72 Enterocolitis due to Clostridium difficile, not specified as recurrent; R18.8 Other ascites; J44.0 Chronic obstructive pulmonary disease with (acute) lower respiratory infection; J98.11 Atelectasis; E89.0 Postprocedural hypothyroidism; E87.6 Hypokalemia; D64.9 Anemia, unspecified; N28.9 Disorder of kidney and ureter, unspecified; I25.10 Atherosclerotic heart disease of native coronary artery without angina pectoris; K21.9 Gastro-esophageal reflux disease without esophagitis; M81.0 Age-related osteoporosis without current pathological fracture; Z87.442 Personal history of urinary calculi; Z88.1 Allergy status to other antibiotic agents; Z88.8 Allergy status to other drugs, medicaments and biological substances
CPT/HCPCS: 36415; 36430; 36600; 71010; 71275; 74176; 80048; 80053; 81001; 82805; 83605; 83735; 83880; 85014; 85018; 85025; 85027; 86850; 86900; 86901; 86920; 87040; 87086; 87493; 87506; 88307; 93005; 94150; 94620; 94640; 94664; C9290; J0131; J0690; J0692; J1100; J1170; J1650; J2150; J2250; J2270; J2370; J2405; J3010; J3480; J7120; P9016; Q9967